=== PATIENT | female | born 1950 | race Caucasian/White ===

== ENCOUNTER → 2018-01-15 | Outpatient (CLI) | payer MEDICARE, OTHER ==
[~2018-01-15] MED LIST: ALLOPURINOL 30300 M1 PO; ALLOPURINOL 30300 M3 PO; ALOE VERA PO; ALPHA LIPOIC ACID PO; AMMONIUM LACTATE; AMOXICILLIN 50500 M1 PO; ASPIRIN EC81 M1 PO; B-12 SUBLING; BUMETANIDE2 M1 PO; BUMEX2 MG PO; CALCIUM; CAYENNE450 MG PO; CEFTIN500 MG PO; CIPRO500 M1 PO; COLACE100 MG PO; FLAXSEED; FLONASE 0.05%50 MCG INH; GLUCOPHAGE XR500 MG PO; GLUCOPHAGE500 MG PO; GLUCOTROL10 MG PO; HUMALOG100 UNIT/1 SQ; HYDROCORTISONE 2.5% TOP; HYZAAR 50-12.51 EACH PO; IODOQUINOL TOP; IP-6 INOSITOL PO; JANUVIA25 MG PO; K-DUR10 MEQ PO; KETOCONAZOLE TOPICAL; KLOR-CON; LANTUS SC; LANTUS SUBQ; LEVEMIR100 UNIT/1 SUBQ; LEVOTHYROXIN0.112 M1 PO; LEVOXYL100 MCG PO; LOSARTAN-HCTZ1 EAC1; LOSARTAN-HCTZ1 EACH PO; LUTEIN10 MG PO; MAGNESIUM; MEDROLDOSEPACK PO; MINOCIN100 MG PO; MULTI-VITAMIN1 EAC5 PO; MULTIVITAMINS1 EAC7 PO; NORCO 5-325 TA1 EACH PO; OLIVE LEAF EXT250 MG PO; OMEGA 3; OMEGA-31000 M1 PO; PHENERGAN 25 MG25 MG PO; STOOL SOFTENER; SYNTHROID; TRIAMCINOLON 0.1% TOP; VANCOMYCIN1.25 GM/15 IVPB; VISTARIL 25 MG25 M1 PO; VITAMIN D32000 UNIT PO; VITAMINC500 PO; ZINC; [UNRECOGNIZED DRUG - OTHER]; [UNRECOGNIZED DRUG - OTHER] MC; [UNRECOGNIZED DRUG - OTHER] PO; levothyroxin PO
== END ==
LOC: M.RAD 12-17 11:00
DX: R92.1 Mammographic calcification found on diagnostic imaging of breast (principal); R92.8 Other abnormal and inconclusive findings on diagnostic imaging of breast; E11.621 Type 2 diabetes mellitus with foot ulcer

== ENCOUNTER → 2018-01-20 | Outpatient (CLI) | payer MEDICARE, OTHER ==
--- NOTE | 2018-02-01 21:22 | ONC ---
[address] [address] RADIATION ONCOLOGY NOTE Name: DIGNA ASHTON Room: [facility]#: [id number] Admission: 01/20/18 Attend Phys: Carlitos Ortega MD Discharge: Date of : 46 Report #: [id number] THIS REPORT FOR: //name// CC: Carlitos Miranda [facility] Vito Monroe MD DATE OF SERVICE: 01/20/2018 REFERRING PHYSICIANS: Include Miki Salmon DO; Keturah Rivero MD; Dr. Mckenzie; Vito Monroe MD from Dermatology. She has actually new primary care at the [facility], it is Manan Miranda MD. The patient was seen again on 01/20/2018. [facility] phone is [phone]. 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 She declined to receive adjuvant therapy. She underwent a lumpectomy on 07/12/2015. INTERVAL NOTE: She denied having any nipple discharge from the right breast. She denied having any nipple discharge from the left breast. She denied having any suspicious palpable masses involving the right breast. She denied having any suspicious palpable masses involving the left breast. She said that her around 11/2017. SOCIAL HISTORY: The patient is retired. She has 2 daughters. Cigarettes: she smoked 1 pack per day for about 30 years. She quit smoking around the year 1999. REVIEW OF SYSTEMS: RESPIRATORY: Breathing was stable. She was not short of breath during her appointment. MUSCULOSKELETAL: She had good range of motion in her upper extremities. MEDICATIONS: Include Humalog, metformin, Levemir solution, 112 mcg of levothyroxine per day, losartan, bumetanide, allopurinol, potassium, aspirin, triamcinolone, fluocinonide and iodoquinol. PHYSICAL EXAMINATION: With my nurse, Digna Nieves, present: VITAL SIGNS: The patient weighed 328.6 pounds on 01/20/2018 and 341.2 on 06/17/2017. On 01/20/2018, blood pressure was 154/60, pulse was 106, respirations were 24, [place] [address] RADIATION ONCOLOGY NOTE Name: DIGNA ASHTON Room: [facility]#: [id number] Admission: 01/20/18 Attend Phys: Carlitos Ortega MD Discharge: Date of : 46 Report #: [id number] oxygen saturation 96%. LYMPH NODES: She had no palpable cervical, supraclavicular, or axillary lymphadenopathy. HEART: Had a regular rate and rhythm without murmur. LUNGS: were clear to auscultation. BREASTS: Left breast had no suspicious palpable masses. Right breast, had no suspicious palpable masses. ABDOMEN: Not tender. Liver was at the costal margin. EXTREMITIES: Had no clubbing, cyanosis or edema. RADIOLOGIC DATA: She had a right mammogram on 01/15/2018, which revealed benign findings and she is due for a bilateral mammogram around 05/2018 or 06/2018. She had a right breast biopsy on 06/18/2017, which revealed benign breast tissue. ASSESSMENT AND PLAN: 1. History of ductal carcinoma in situ of the left breast- there is no evidence of breast cancer at this time. The patient was given a requisition for a bilateral mammogram in 05/2018. She was asked to schedule a follow up appointment to see me afterwards. 2. Diabetes- The patient takes metformin and that is managed by her referring physicians. 3. Hypothyroidism- The patient takes 112 mcg of levothyroxine per day and that is managed by her referring physicians. Thank you for allowing me to participate in the care of this patient. <ELECTRONICALLY SIGNED> By: Carlitos Ortega MD 02/01/182121 [id number] 26Carlitos Ortega MD /nt
== END ==
LOC: M.RTH 12-25 11:00
DX: E11.9 Type 2 diabetes mellitus without complications (principal); E03.9 Hypothyroidism, unspecified

== ENCOUNTER → 2018-07-10 | Outpatient (CLI) | payer MEDICARE, OTHER | LOC: M.RAD 13:00 | DX: R92.8 Other abnormal and inconclusive findings on diagnostic imaging of breast (principal) ==

== ENCOUNTER 2018-08-27 13:21 | Inpatient (IN) | payer MEDICARE, OTHER ==
[~2018-08-27] VITALS: Ht 167.6 cm; Wt 155.6 kg
--- NOTE | ~2018-08-27 | OP ---
[address] [address] OPERATIVE REPORT Name: POLIJENNI Chase Room: [address] IN .R.#: [id number] Admission: 08/27/18 Attend Phys: Esther Barajas MD Discharge: Date of : 46 Report #: [id number] THIS REPORT FOR: //name// CC: Carlitos Barajas DATE OF SERVICE: 08/28/2018 SURGEON: Carlitos Fagan DPM. PREOPERATIVE DIAGNOSIS: Ulceration with soft tissue infection to right posterior heel. POSTOPERATIVE DIAGNOSIS: Ulceration with soft tissue infection to right posterior heel. PROCEDURE: Excision of tissue from right posterior heel, over an area greater than 25 square centimeters. ANESTHESIA: MAC. INJECTABLES: A 30 mL of a 1:1 mixture of 0.5% Marcaine plain and 1% lidocaine. HEMOSTASIS: No tourniquet. ESTIMATED BLOOD LOSS: Roughly 5 mL. SPECIMENS: None. CULTURES: Soft tissue, right heel, aerobic and anaerobic. DESCRIPTION OF PROCEDURE: The patient was brought to the OR and placed on the table supine with induction of MAC anesthesia. A local anesthetic block was given proximal to the wound. The extremity was prepped and draped aseptically. A #10 scalpel was used to excise subcutaneous tissue from the wound bed to remove all grossly necrotic and infected soft tissue. This was sent for aerobic and anaerobic soft tissue culture. After thorough debridement, there was pinpoint bleeding of the underlying subcutaneous tissue layer, with no exposed bone or tendon. The wound was flushed with sterile saline and bacitracin and [facility] [address] [place] [address] OPERATIVE REPORT Name: JENNI ASHTON Chase Room: [address] IN [facility]#: [id number] Admission: 08/27/18 Attend Phys: Estehr Barajas MD Discharge: Date of : 48 Report #: [id number] dried. It was then dressed with Aquacel Ag, fluffs, ABD, Kerlix and Jesus wrap. The patient left the OR alert and oriented. with no pain or complications noted. By: [id number] Fagan DPM /kortney
[~2018-08-27 13:21] MED LIST changes: -LEVOTHYROXIN0.112 M1 PO; +SYNTHROID125 MC1 PO
[2018-08-27 14:40] VITALS: BP 157/89
[2018-08-27 17:03] LABS: ABSOLUTE EOSINOPHILS 0.2 thou/uL (0.0-0.7); ABSOLUTE LYMPHOCYTES 2.3 thou/uL (0.8-5.3); ABSOLUTE MONOCYTES 0.4 thou/uL (0.0-1.2); ABSOLUTE NEUTROPHILS 5.9 thou/uL (1.6-8.1); BASOPHILS 0.5 %; HEMATOCRIT 33.2 % (37.0-47.0); HEMOGLOBIN 10.8 gm/dL (12.0-15.0); LYMPHOCYTES 25.9 %; MCH 31.7 pg (26.0-34.0); MCHC 32.6 g/dL (28.0-37.0); MCV 97.1 fL (80.0-100.0); MONOCYTES 4.7 %; MPV 7.7 fl. (7.2-11.1); NUCLEATED RBCS 0 /100WBC; PLATELET COUNT* 251 thou/uL (150-400); POLYS 66.9 %; RBC 3.42 mil/uL (4.20-5.00); RDW-CV 16.1 % (10.5-14.5); WBC 8.9 thou/uL (4.0-11.0)
[2018-08-27 17:11] LABS: PROTIME 9.8 Seconds (9.20-11.50)
[2018-08-27] MEDS ORDERED: HUMULIN R100 UNIT/M SUBQ (17:12)
[2018-08-27 17:21] LABS: ALBUMIN 3.2 g/dL (3.4-5.0); CALCIUM 9.6 mg/dL (8.5-10.1); MAGNESIUM 1.9 mg/dL (1.8-2.4); POTASSIUM 3.9 mmol/L (3.5-5.1); TOTAL BILIRUBIN 0.3 mg/dL (<0.1-1.0); TOTAL PROTEIN 7.7 g/dL (6.4-8.2)
[2018-08-27 20:00] VITALS: BP 130/57
[2018-08-28 03:47] LABS: ABSOLUTE EOSINOPHILS 0.1 thou/uL (0.0-0.7); ABSOLUTE LYMPHOCYTES 1.9 thou/uL (0.8-5.3); ABSOLUTE MONOCYTES 0.4 thou/uL (0.0-1.2); BASOPHILS 0.6 %; EOSINOPHILS 1.6 %; HEMATOCRIT 31.8 % (37.0-47.0); HEMOGLOBIN 10.4 gm/dL (12.0-15.0); LYMPHOCYTES 25.1 %; MCH 31.6 pg (26.0-34.0); MCHC 32.7 g/dL (28.0-37.0); MCV 96.8 fL (80.0-100.0); MONOCYTES 5.3 %; NUCLEATED RBCS 0 /100WBC; PLATELET COUNT* 242 thou/uL (150-400); POLYS 67.4 %; RBC 3.29 mil/uL (4.20-5.00); RDW-CV 16.2 % (10.5-14.5); WBC 7.4 thou/uL (4.0-11.0)
[2018-08-28 04:08] LABS: ANION GAP 11 mmol/L (7-16); BUN 26 mg/dL (7-18); CALCIUM 9.2 mg/dL (8.5-10.1); CHLORIDE 100 mmol/L (98-107); CHOLESTEROL 180 mg/dL (<200); CO2 26 mmol/L (21-32); CREATININE 1.1 mg/dL (0.6-1.3); GLUCOSE 221 mg/dL (70-99); HDL CHOLESTEROL 40 mg/dL (>40); LDL CHOLESTEROL 92 mg/dL (<100); MAGNESIUM 1.9 mg/dL (1.8-2.4); POTASSIUM 4.5 mmol/L (3.5-5.1); SODIUM 137 mmol/L (136-145); TC:HDL 4.5 Ratio (Not establshd); TRIGLYCERIDE 244 mg/dL (<150); VLDL 49 mg/dL (<40)
[2018-08-28 04:09] LABS: SERUM ASSESSMENT CLEAR
[2018-08-28 10:34] VITALS: BP 135/53
--- NOTE | 2018-08-28 12:01 | CON ---
[address] [address] CONSULTATION Name: POLIJENNI Chase Room: [address] IN M.R.#: [id number] Admission: 08/27/18 Attend Phys: Esther Barajas MD Discharge: Date of : 46 Report #: [id number] THIS REPORT FOR: //name// CC: Carlitos Barajas DATE OF SERVICE: 08/27/2018 ATTENDING PHYSICIAN: Dr. Barajas. REASON FOR CONSULTATION: Here for right plantar calcaneal necrotic type wound in the setting of diabetes mellitus type 2. HISTORY OF PRESENT ILLNESS: Chart reviewed, the patient examined. A 68-year-old, known to myself, having seen her in the hospital a couple of years ago, has longstanding diabetes mellitus diagnosed in the mid , currently is on insulin therapy. She notes her sugars have been fairly well controlled. Has had issues with distal lower extremities, previous foot infections, developed a pinpoint lesion over the medial plantar aspect of her right heel. This progressed over the course of a few days, became quite necrotic, malodorous, has some discomfort, although it is in the setting of peripheral neuropathy. She was not systemically ill. Denies any fevers or chills. Appetite has been good. No pulmonary or gastrointestinal related complaints. She was seen by Dr. Fagan who recommended admission and scheduled to undergo MRI studies. The intent I think is to undergo a debridement procedure. She is not encephalopathic. ALLERGIES: SULFA, STATINS, IODINE. CURRENT MEDICATIONS: Include fish oil, allopurinol, potassium chloride, bumetanide, levothyroxine, aspirin, multivitamin, metformin, hydrocodone. PAST MEDICAL HISTORY: As described above, in addition to diabetes mellitus type 2, insulin requiring; hypercholesterolemia, hypothyroidism, sleep apnea, history of gout, has had several orthopedic surgeries, previous cholecystectomy, tubal ligation, bladder repair that required stenting of the ureter due to ureteral stones, abdominal surgeries due to a hernia with strangulation. SOCIAL HISTORY: Former smoker, occasional ethanol, no illicit drug use. FAMILY HISTORY: Noncontributory. REVIEW OF SYSTEMS: A 10-point review of systems other than above [place] [address] CONSULTATION Name: JENNI ASHTON Room: [address]#: [id number] Admission: 08/27/18 Attend Phys: Esther Barajas MD Discharge: Date of : 46 Report #: [id number] PHYSICAL EXAMINATION: GENERAL: She is sitting in a wheelchair. She is alert, cooperative, pleasant, in mild distress. She is not overtly toxic appearing. VITAL SIGNS: Stable. HEENT: Unremarkable. Extraocular muscles intact. Oropharynx without lesion. NECK: Supple. LUNGS: Clear to auscultation. HEART: Regular. I do not appreciate any murmur. ABDOMEN: Obese, soft, nontender. There are no peritoneal signs. EXTREMITIES: She has a compression dressing over her distal right lower extremity. GENITOURINARY: Deferred. RECTAL: Deferred. LABORATORY DATA: Imaging is pending. ASSESSMENT: Necrotic ulcer involving her right heel. We will continue evaluation with addition of arterial Doppler of her right lower extremity. In addition, I will start empiric antimicrobial therapy. In the setting of debridement, we will likely have some deep cultures to work with as well as do blood cultures as well. <ELECTRONICALLY SIGNED> By: Sam Renee MD 08/28/18 1201 1544 [id number] Renee MD /nt
[2018-08-28 16:02] VITALS: BP 114/41
[2018-08-28 16:38] VITALS: BP 114/41
--- NOTE | 2018-08-28 17:50 | EKG ---
[place] [address] ELECTROCARDIOGRAM REPORT Name: POLIJENNI Room: [address] ADM IN .R.#: [id number] Admission: 08/27/18 Attend Phys: Esther Barajas MD Discharge: Date of : 46 Report #: [id number] THIS REPORT FOR: //name// [facility] Test Date: 2018-08-28 Test Time: 11:54:31 Pat Name: JENNI ASHTON Department: Room: [address] Gender: F Conference Planner: : 1950 Requested By: Carlitos Fagan Order Number: [id number] Meghann MD: Raymon Perales Measurements Intervals [place] Rate: 90 P: 9 [place]: 178 QRS: -31 QRSD: 141 T: 44 QT: 409 QTc: 501 Interpretive Statements Sinus rhythm Right bundle branch block Baseline wander in lead(s) II,III,aVF Compared to ECG 04/08/2016 21:46:21 Sinus tachycardia no longer present Left anterior fascicular block no longer present Incomplete right bundle-branch block no longer present Electronically Signed On 08-28-2018 17:50:07 RECEIVING CHECKER by Raymon Perales [email or web address] <ELECTRONICALLY SIGNED> By: Raymon Perales MD, FACC 08/28/18 1750 1154 1154 Raymon Perales MD, FACC /EPI
[2018-08-28 19:08] LABS: GLYCOHEMOGLOBIN (HGB A1C) 6.6 % (4.8-5.6)
[2018-08-29] VITALS (8 sets, daily range): BP systolic 108–127; BP diastolic 46–50
[2018-08-29] MEDS ORDERED: AUGMENTIN 875-1 EACH PO (10:54)
== END 2018-08-29 16:17 | disposition home health service (06) | DRG 623 ==
LOC: M.TBA 13:21 → M.3W 13:49
PROVIDERS: ADMIT Family Medicine
PROC: 0JBQ0ZZ Excision of Right Foot Subcutaneous Tissue and Fascia, Open Approach (ICD-10-PCS; principal; 2018-08-28)
DX: E11.621 Type 2 diabetes mellitus with foot ulcer (principal); Z68.43 Body mass index [BMI] 50.0-59.9, adult; E78.00 Pure hypercholesterolemia, unspecified; E03.9 Hypothyroidism, unspecified; M10.9 Gout, unspecified; E66.01 Morbid (severe) obesity due to excess calories; E11.22 Type 2 diabetes mellitus with diabetic chronic kidney disease; N18.3 Chronic kidney disease, stage 3 (moderate); D50.9 Iron deficiency anemia, unspecified; Z88.2 Allergy status to sulfonamides; Z91.041 Radiographic dye allergy status; Z90.49 Acquired absence of other specified parts of digestive tract; Z87.891 Personal history of nicotine dependence; I12.9 Hypertensive chronic kidney disease with stage 1 through stage 4 chronic kidney disease, or unspecified chronic kidney disease

== ENCOUNTER → 2018-09-10 | Outpatient (CLI) | payer MEDICARE, OTHER ==
[~2018-09-10] MED LIST changes: +AUGMENTIN 875-1 EACH PO; +HUMULIN R100 UNIT/M SUBQ
== END ==
LOC: M.WC 13:00
DX: E11.621 Type 2 diabetes mellitus with foot ulcer (principal); L97.412 Non-pressure chronic ulcer of right heel and midfoot with fat layer exposed; E11.42 Type 2 diabetes mellitus with diabetic polyneuropathy; E78.00 Pure hypercholesterolemia, unspecified; E66.01 Morbid (severe) obesity due to excess calories; E03.9 Hypothyroidism, unspecified; G47.30 Sleep apnea, unspecified; I89.0 Lymphedema, not elsewhere classified; Z85.89 Personal history of malignant neoplasm of other organs and systems; Z68.43 Body mass index [BMI] 50.0-59.9, adult; Z79.4 Long term (current) use of insulin; Z79.82 Long term (current) use of aspirin; Z87.891 Personal history of nicotine dependence

== ENCOUNTER → 2018-09-17 | Outpatient (CLI) | payer MEDICARE, OTHER | LOC: M.WC 04:42 | DX: E11.621 Type 2 diabetes mellitus with foot ulcer (principal); L97.412 Non-pressure chronic ulcer of right heel and midfoot with fat layer exposed; E11.42 Type 2 diabetes mellitus with diabetic polyneuropathy; E78.00 Pure hypercholesterolemia, unspecified; E66.01 Morbid (severe) obesity due to excess calories; E03.9 Hypothyroidism, unspecified; G47.30 Sleep apnea, unspecified; I89.0 Lymphedema, not elsewhere classified; Z85.89 Personal history of malignant neoplasm of other organs and systems; Z68.43 Body mass index [BMI] 50.0-59.9, adult; Z79.4 Long term (current) use of insulin; Z87.891 Personal history of nicotine dependence; Z79.82 Long term (current) use of aspirin ==

== ENCOUNTER → 2018-09-24 | Outpatient (CLI) | payer MEDICARE, OTHER | LOC: M.WC 01:53 | DX: E11.621 Type 2 diabetes mellitus with foot ulcer (principal); L97.412 Non-pressure chronic ulcer of right heel and midfoot with fat layer exposed; I89.0 Lymphedema, not elsewhere classified; E11.42 Type 2 diabetes mellitus with diabetic polyneuropathy; E78.00 Pure hypercholesterolemia, unspecified; E66.01 Morbid (severe) obesity due to excess calories; E03.9 Hypothyroidism, unspecified; G47.30 Sleep apnea, unspecified; Z85.89 Personal history of malignant neoplasm of other organs and systems; Z68.43 Body mass index [BMI] 50.0-59.9, adult; Z87.891 Personal history of nicotine dependence ==

== ENCOUNTER → 2018-10-08 | Outpatient (CLI) | payer MEDICARE, OTHER | LOC: M.WC 10-01 13:00 | DX: E11.621 Type 2 diabetes mellitus with foot ulcer (principal); L97.411 Non-pressure chronic ulcer of right heel and midfoot limited to breakdown of skin; E78.00 Pure hypercholesterolemia, unspecified; I89.0 Lymphedema, not elsewhere classified; E66.01 Morbid (severe) obesity due to excess calories; E03.9 Hypothyroidism, unspecified; G47.30 Sleep apnea, unspecified; Z85.828 Personal history of other malignant neoplasm of skin; Z68.43 Body mass index [BMI] 50.0-59.9, adult; Z87.891 Personal history of nicotine dependence ==

== ENCOUNTER → 2018-12-10 | Outpatient (CLI) | payer MEDICARE, OTHER | LOC: M.WC 13:50 | DX: E11.622 Type 2 diabetes mellitus with other skin ulcer (principal); L97.211 Non-pressure chronic ulcer of right calf limited to breakdown of skin; E11.621 Type 2 diabetes mellitus with foot ulcer; L97.511 Non-pressure chronic ulcer of other part of right foot limited to breakdown of skin; L97.411 Non-pressure chronic ulcer of right heel and midfoot limited to breakdown of skin; I89.0 Lymphedema, not elsewhere classified; E11.42 Type 2 diabetes mellitus with diabetic polyneuropathy; E78.00 Pure hypercholesterolemia, unspecified; E66.01 Morbid (severe) obesity due to excess calories; E03.9 Hypothyroidism, unspecified; G47.30 Sleep apnea, unspecified; Z85.828 Personal history of other malignant neoplasm of skin; Z87.891 Personal history of nicotine dependence; Z85.3 Personal history of malignant neoplasm of breast; Z68.43 Body mass index [BMI] 50.0-59.9, adult; Z90.49 Acquired absence of other specified parts of digestive tract ==

== ENCOUNTER → 2018-12-24 | Outpatient (CLI) | payer MEDICARE, OTHER | LOC: M.WC 04:17 | DX: E11.622 Type 2 diabetes mellitus with other skin ulcer (principal); L97.212 Non-pressure chronic ulcer of right calf with fat layer exposed; L97.821 Non-pressure chronic ulcer of other part of left lower leg limited to breakdown of skin; E11.621 Type 2 diabetes mellitus with foot ulcer; L97.512 Non-pressure chronic ulcer of other part of right foot with fat layer exposed; L97.412 Non-pressure chronic ulcer of right heel and midfoot with fat layer exposed; I87.2 Venous insufficiency (chronic) (peripheral); I89.0 Lymphedema, not elsewhere classified; E11.42 Type 2 diabetes mellitus with diabetic polyneuropathy; E66.01 Morbid (severe) obesity due to excess calories; Z87.891 Personal history of nicotine dependence; E78.00 Pure hypercholesterolemia, unspecified; E03.9 Hypothyroidism, unspecified; G47.30 Sleep apnea, unspecified; Z85.828 Personal history of other malignant neoplasm of skin; Z85.3 Personal history of malignant neoplasm of breast; Z68.43 Body mass index [BMI] 50.0-59.9, adult ==

== ENCOUNTER → 2019-01-14 | Outpatient (CLI) | payer MEDICARE, OTHER | LOC: M.WC 05:09 | DX: E11.622 Type 2 diabetes mellitus with other skin ulcer (principal); L97.211 Non-pressure chronic ulcer of right calf limited to breakdown of skin; E11.621 Type 2 diabetes mellitus with foot ulcer; L97.511 Non-pressure chronic ulcer of other part of right foot limited to breakdown of skin; L97.411 Non-pressure chronic ulcer of right heel and midfoot limited to breakdown of skin; I89.0 Lymphedema, not elsewhere classified; E66.01 Morbid (severe) obesity due to excess calories; E78.00 Pure hypercholesterolemia, unspecified; E03.9 Hypothyroidism, unspecified; G47.30 Sleep apnea, unspecified; Z85.828 Personal history of other malignant neoplasm of skin; Z85.3 Personal history of malignant neoplasm of breast; Z68.43 Body mass index [BMI] 50.0-59.9, adult ==

== ENCOUNTER → 2019-01-21 | Outpatient (CLI) | payer MEDICARE, OTHER | LOC: M.WC 05:07 | DX: E11.622 Type 2 diabetes mellitus with other skin ulcer (principal); L97.212 Non-pressure chronic ulcer of right calf with fat layer exposed; E11.621 Type 2 diabetes mellitus with foot ulcer; L97.511 Non-pressure chronic ulcer of other part of right foot limited to breakdown of skin; L97.412 Non-pressure chronic ulcer of right heel and midfoot with fat layer exposed; E11.42 Type 2 diabetes mellitus with diabetic polyneuropathy; E66.01 Morbid (severe) obesity due to excess calories; E03.9 Hypothyroidism, unspecified; E78.00 Pure hypercholesterolemia, unspecified; I89.0 Lymphedema, not elsewhere classified; G47.30 Sleep apnea, unspecified; Z85.828 Personal history of other malignant neoplasm of skin; Z85.3 Personal history of malignant neoplasm of breast; Z68.43 Body mass index [BMI] 50.0-59.9, adult; Z87.891 Personal history of nicotine dependence ==

== ENCOUNTER → 2019-01-28 | Outpatient (CLI) | payer MEDICARE, OTHER | LOC: M.WC 05:05 | DX: E11.621 Type 2 diabetes mellitus with foot ulcer (principal); L97.511 Non-pressure chronic ulcer of other part of right foot limited to breakdown of skin; L97.411 Non-pressure chronic ulcer of right heel and midfoot limited to breakdown of skin; E11.622 Type 2 diabetes mellitus with other skin ulcer; L97.211 Non-pressure chronic ulcer of right calf limited to breakdown of skin; L89.512 Pressure ulcer of right ankle, stage 2; L97.311 Non-pressure chronic ulcer of right ankle limited to breakdown of skin; I89.0 Lymphedema, not elsewhere classified; E11.42 Type 2 diabetes mellitus with diabetic polyneuropathy; E66.01 Morbid (severe) obesity due to excess calories; E78.00 Pure hypercholesterolemia, unspecified; E03.9 Hypothyroidism, unspecified; G47.30 Sleep apnea, unspecified; Z85.828 Personal history of other malignant neoplasm of skin; Z87.891 Personal history of nicotine dependence; Z85.3 Personal history of malignant neoplasm of breast; Z68.43 Body mass index [BMI] 50.0-59.9, adult ==

== ENCOUNTER → 2019-02-04 | Outpatient (CLI) | payer MEDICARE, OTHER | LOC: M.WC 04:34 | DX: E11.622 Type 2 diabetes mellitus with other skin ulcer (principal); L97.212 Non-pressure chronic ulcer of right calf with fat layer exposed; L89.512 Pressure ulcer of right ankle, stage 2; L97.312 Non-pressure chronic ulcer of right ankle with fat layer exposed; E11.621 Type 2 diabetes mellitus with foot ulcer; L89.893 Pressure ulcer of other site, stage 3; L97.512 Non-pressure chronic ulcer of other part of right foot with fat layer exposed; L97.412 Non-pressure chronic ulcer of right heel and midfoot with fat layer exposed; I89.0 Lymphedema, not elsewhere classified; E11.42 Type 2 diabetes mellitus with diabetic polyneuropathy; E78.00 Pure hypercholesterolemia, unspecified; E66.01 Morbid (severe) obesity due to excess calories; E03.9 Hypothyroidism, unspecified; G47.30 Sleep apnea, unspecified; Z85.828 Personal history of other malignant neoplasm of skin; Z87.891 Personal history of nicotine dependence; Z85.3 Personal history of malignant neoplasm of breast; Z68.43 Body mass index [BMI] 50.0-59.9, adult ==

== ENCOUNTER → 2019-02-11 | Outpatient (CLI) | payer MEDICARE, OTHER | LOC: M.WC 05:20 | DX: E11.622 Type 2 diabetes mellitus with other skin ulcer (principal); L97.212 Non-pressure chronic ulcer of right calf with fat layer exposed; L89.512 Pressure ulcer of right ankle, stage 2; E11.621 Type 2 diabetes mellitus with foot ulcer; L97.511 Non-pressure chronic ulcer of other part of right foot limited to breakdown of skin; L97.412 Non-pressure chronic ulcer of right heel and midfoot with fat layer exposed; L97.312 Non-pressure chronic ulcer of right ankle with fat layer exposed; L89.893 Pressure ulcer of other site, stage 3; E11.42 Type 2 diabetes mellitus with diabetic polyneuropathy; E66.01 Morbid (severe) obesity due to excess calories; E78.00 Pure hypercholesterolemia, unspecified; E03.9 Hypothyroidism, unspecified; G47.30 Sleep apnea, unspecified; I89.0 Lymphedema, not elsewhere classified; Z85.828 Personal history of other malignant neoplasm of skin; Z85.3 Personal history of malignant neoplasm of breast; Z68.43 Body mass index [BMI] 50.0-59.9, adult; Z87.891 Personal history of nicotine dependence ==

== ENCOUNTER → 2019-02-18 | Outpatient (CLI) | payer MEDICARE, OTHER | LOC: M.WC 08:03 | DX: E11.621 Type 2 diabetes mellitus with foot ulcer (principal); L97.411 Non-pressure chronic ulcer of right heel and midfoot limited to breakdown of skin; L97.511 Non-pressure chronic ulcer of other part of right foot limited to breakdown of skin; E11.622 Type 2 diabetes mellitus with other skin ulcer; L97.211 Non-pressure chronic ulcer of right calf limited to breakdown of skin; L89.892 Pressure ulcer of other site, stage 2; I89.0 Lymphedema, not elsewhere classified; E78.00 Pure hypercholesterolemia, unspecified; E66.01 Morbid (severe) obesity due to excess calories; E03.9 Hypothyroidism, unspecified; G47.30 Sleep apnea, unspecified; Z85.828 Personal history of other malignant neoplasm of skin; Z87.891 Personal history of nicotine dependence ==

== ENCOUNTER → 2019-02-25 | Outpatient (CLI) | payer MEDICARE, OTHER | LOC: M.WC 04:52 | DX: E11.622 Type 2 diabetes mellitus with other skin ulcer (principal); L97.211 Non-pressure chronic ulcer of right calf limited to breakdown of skin; L89.893 Pressure ulcer of other site, stage 3; L97.311 Non-pressure chronic ulcer of right ankle limited to breakdown of skin; E11.621 Type 2 diabetes mellitus with foot ulcer; L97.511 Non-pressure chronic ulcer of other part of right foot limited to breakdown of skin; L97.412 Non-pressure chronic ulcer of right heel and midfoot with fat layer exposed; I89.0 Lymphedema, not elsewhere classified; E11.42 Type 2 diabetes mellitus with diabetic polyneuropathy; E78.00 Pure hypercholesterolemia, unspecified; E66.01 Morbid (severe) obesity due to excess calories; E03.9 Hypothyroidism, unspecified; G47.30 Sleep apnea, unspecified; Z85.828 Personal history of other malignant neoplasm of skin; Z85.3 Personal history of malignant neoplasm of breast; Z68.43 Body mass index [BMI] 50.0-59.9, adult; Z87.891 Personal history of nicotine dependence ==

== ENCOUNTER → 2019-03-04 | Outpatient (CLI) | payer MEDICARE, OTHER | LOC: M.WC 05:08 | DX: E11.622 Type 2 diabetes mellitus with other skin ulcer (principal); L97.211 Non-pressure chronic ulcer of right calf limited to breakdown of skin; L97.311 Non-pressure chronic ulcer of right ankle limited to breakdown of skin; E11.621 Type 2 diabetes mellitus with foot ulcer; L97.511 Non-pressure chronic ulcer of other part of right foot limited to breakdown of skin; L97.411 Non-pressure chronic ulcer of right heel and midfoot limited to breakdown of skin; L89.893 Pressure ulcer of other site, stage 3; I89.0 Lymphedema, not elsewhere classified; E78.00 Pure hypercholesterolemia, unspecified; E66.01 Morbid (severe) obesity due to excess calories; E03.9 Hypothyroidism, unspecified; G47.30 Sleep apnea, unspecified; Z87.891 Personal history of nicotine dependence; Z85.828 Personal history of other malignant neoplasm of skin; Z85.3 Personal history of malignant neoplasm of breast; Z68.43 Body mass index [BMI] 50.0-59.9, adult ==

== ENCOUNTER → 2019-03-11 | Outpatient (CLI) | payer MEDICARE, OTHER | LOC: M.WC 05:10 | DX: E11.622 Type 2 diabetes mellitus with other skin ulcer (principal); L97.212 Non-pressure chronic ulcer of right calf with fat layer exposed; E11.621 Type 2 diabetes mellitus with foot ulcer; L97.511 Non-pressure chronic ulcer of other part of right foot limited to breakdown of skin; L97.412 Non-pressure chronic ulcer of right heel and midfoot with fat layer exposed; L89.893 Pressure ulcer of other site, stage 3; L84 Corns and callosities; E11.42 Type 2 diabetes mellitus with diabetic polyneuropathy; E66.01 Morbid (severe) obesity due to excess calories; E03.9 Hypothyroidism, unspecified; E78.00 Pure hypercholesterolemia, unspecified; I89.0 Lymphedema, not elsewhere classified; G47.30 Sleep apnea, unspecified; Z68.43 Body mass index [BMI] 50.0-59.9, adult; Z85.828 Personal history of other malignant neoplasm of skin; Z85.3 Personal history of malignant neoplasm of breast; Z87.891 Personal history of nicotine dependence ==

== ENCOUNTER → 2019-03-18 | Outpatient (CLI) | payer MEDICARE, OTHER | LOC: M.WC 00:46 | DX: E11.622 Type 2 diabetes mellitus with other skin ulcer (principal); L97.212 Non-pressure chronic ulcer of right calf with fat layer exposed; L97.312 Non-pressure chronic ulcer of right ankle with fat layer exposed; E11.621 Type 2 diabetes mellitus with foot ulcer; L97.511 Non-pressure chronic ulcer of other part of right foot limited to breakdown of skin; L97.412 Non-pressure chronic ulcer of right heel and midfoot with fat layer exposed; E11.42 Type 2 diabetes mellitus with diabetic polyneuropathy; E66.01 Morbid (severe) obesity due to excess calories; E78.00 Pure hypercholesterolemia, unspecified; E03.9 Hypothyroidism, unspecified; I89.0 Lymphedema, not elsewhere classified; G47.30 Sleep apnea, unspecified; Z87.891 Personal history of nicotine dependence; Z85.828 Personal history of other malignant neoplasm of skin; Z85.3 Personal history of malignant neoplasm of breast; Z68.43 Body mass index [BMI] 50.0-59.9, adult ==

== ENCOUNTER → 2019-03-25 | Outpatient (CLI) | payer MEDICARE, OTHER | LOC: M.WC 05:19 | DX: E11.622 Type 2 diabetes mellitus with other skin ulcer (principal); L97.212 Non-pressure chronic ulcer of right calf with fat layer exposed; L97.312 Non-pressure chronic ulcer of right ankle with fat layer exposed; E11.621 Type 2 diabetes mellitus with foot ulcer; L97.511 Non-pressure chronic ulcer of other part of right foot limited to breakdown of skin; L97.412 Non-pressure chronic ulcer of right heel and midfoot with fat layer exposed; E11.42 Type 2 diabetes mellitus with diabetic polyneuropathy; E66.01 Morbid (severe) obesity due to excess calories; E78.00 Pure hypercholesterolemia, unspecified; E03.9 Hypothyroidism, unspecified; G47.30 Sleep apnea, unspecified; I89.0 Lymphedema, not elsewhere classified; Z85.828 Personal history of other malignant neoplasm of skin; Z85.3 Personal history of malignant neoplasm of breast; Z68.43 Body mass index [BMI] 50.0-59.9, adult; Z87.891 Personal history of nicotine dependence ==

== ENCOUNTER → 2019-04-01 | Outpatient (CLI) | payer MEDICARE, OTHER | LOC: M.WC 04:58 | DX: E11.622 Type 2 diabetes mellitus with other skin ulcer (principal); L97.212 Non-pressure chronic ulcer of right calf with fat layer exposed; E11.621 Type 2 diabetes mellitus with foot ulcer; L97.511 Non-pressure chronic ulcer of other part of right foot limited to breakdown of skin; L97.412 Non-pressure chronic ulcer of right heel and midfoot with fat layer exposed; L97.312 Non-pressure chronic ulcer of right ankle with fat layer exposed; I89.0 Lymphedema, not elsewhere classified; L03.115 Cellulitis of right lower limb; E11.42 Type 2 diabetes mellitus with diabetic polyneuropathy; E66.01 Morbid (severe) obesity due to excess calories; Z68.43 Body mass index [BMI] 50.0-59.9, adult ==

== ENCOUNTER → 2019-04-08 | Outpatient (CLI) | payer MEDICARE, OTHER | LOC: M.WC 03:32 | DX: E11.622 Type 2 diabetes mellitus with other skin ulcer (principal); L97.212 Non-pressure chronic ulcer of right calf with fat layer exposed; L97.312 Non-pressure chronic ulcer of right ankle with fat layer exposed; E11.621 Type 2 diabetes mellitus with foot ulcer; L97.512 Non-pressure chronic ulcer of other part of right foot with fat layer exposed; L97.412 Non-pressure chronic ulcer of right heel and midfoot with fat layer exposed; I89.0 Lymphedema, not elsewhere classified; E11.42 Type 2 diabetes mellitus with diabetic polyneuropathy; E78.00 Pure hypercholesterolemia, unspecified; E66.01 Morbid (severe) obesity due to excess calories; E03.9 Hypothyroidism, unspecified; G47.30 Sleep apnea, unspecified; Z68.43 Body mass index [BMI] 50.0-59.9, adult; Z85.828 Personal history of other malignant neoplasm of skin; Z85.3 Personal history of malignant neoplasm of breast; Z87.891 Personal history of nicotine dependence ==

== ENCOUNTER → 2019-04-22 | Outpatient (CLI) | payer MEDICARE, OTHER | LOC: M.WC 05:26 | DX: E11.621 Type 2 diabetes mellitus with foot ulcer (principal); L97.512 Non-pressure chronic ulcer of other part of right foot with fat layer exposed; L97.412 Non-pressure chronic ulcer of right heel and midfoot with fat layer exposed; E11.622 Type 2 diabetes mellitus with other skin ulcer; L97.211 Non-pressure chronic ulcer of right calf limited to breakdown of skin; E11.40 Type 2 diabetes mellitus with diabetic neuropathy, unspecified; I89.0 Lymphedema, not elsewhere classified; E66.09 Other obesity due to excess calories; E03.9 Hypothyroidism, unspecified; G47.30 Sleep apnea, unspecified; Z68.43 Body mass index [BMI] 50.0-59.9, adult; Z85.828 Personal history of other malignant neoplasm of skin; Z87.891 Personal history of nicotine dependence ==

== ENCOUNTER → 2019-05-06 | Outpatient (CLI) | payer MEDICARE, OTHER | LOC: M.WC 05:09 | DX: E11.622 Type 2 diabetes mellitus with other skin ulcer (principal); L97.212 Non-pressure chronic ulcer of right calf with fat layer exposed; L97.312 Non-pressure chronic ulcer of right ankle with fat layer exposed; E11.621 Type 2 diabetes mellitus with foot ulcer; L97.512 Non-pressure chronic ulcer of other part of right foot with fat layer exposed; L97.412 Non-pressure chronic ulcer of right heel and midfoot with fat layer exposed; E11.42 Type 2 diabetes mellitus with diabetic polyneuropathy; E78.00 Pure hypercholesterolemia, unspecified; E66.01 Morbid (severe) obesity due to excess calories; E03.9 Hypothyroidism, unspecified; I89.0 Lymphedema, not elsewhere classified; I87.2 Venous insufficiency (chronic) (peripheral); G47.30 Sleep apnea, unspecified; Z85.828 Personal history of other malignant neoplasm of skin; Z85.3 Personal history of malignant neoplasm of breast; Z87.891 Personal history of nicotine dependence; Z68.43 Body mass index [BMI] 50.0-59.9, adult ==

== ENCOUNTER → 2019-05-13 | Outpatient (CLI) | payer MEDICARE, OTHER | LOC: M.WC 04:47 | DX: E11.622 Type 2 diabetes mellitus with other skin ulcer (principal); L97.212 Non-pressure chronic ulcer of right calf with fat layer exposed; E11.621 Type 2 diabetes mellitus with foot ulcer; L97.512 Non-pressure chronic ulcer of other part of right foot with fat layer exposed; L97.412 Non-pressure chronic ulcer of right heel and midfoot with fat layer exposed; E11.42 Type 2 diabetes mellitus with diabetic polyneuropathy; E78.00 Pure hypercholesterolemia, unspecified; E66.01 Morbid (severe) obesity due to excess calories; E03.9 Hypothyroidism, unspecified; I89.0 Lymphedema, not elsewhere classified; G47.30 Sleep apnea, unspecified; Z87.891 Personal history of nicotine dependence; Z85.828 Personal history of other malignant neoplasm of skin; Z85.3 Personal history of malignant neoplasm of breast; Z68.43 Body mass index [BMI] 50.0-59.9, adult ==

== ENCOUNTER → 2019-06-03 | Outpatient (CLI) | payer MEDICARE, OTHER | LOC: M.WC 05-20 13:00 | DX: E11.622 Type 2 diabetes mellitus with other skin ulcer (principal); L97.211 Non-pressure chronic ulcer of right calf limited to breakdown of skin; L97.311 Non-pressure chronic ulcer of right ankle limited to breakdown of skin; E11.621 Type 2 diabetes mellitus with foot ulcer; L97.511 Non-pressure chronic ulcer of other part of right foot limited to breakdown of skin; L97.412 Non-pressure chronic ulcer of right heel and midfoot with fat layer exposed; E11.40 Type 2 diabetes mellitus with diabetic neuropathy, unspecified; E78.00 Pure hypercholesterolemia, unspecified; E66.01 Morbid (severe) obesity due to excess calories; E03.9 Hypothyroidism, unspecified; G47.30 Sleep apnea, unspecified; I89.0 Lymphedema, not elsewhere classified; Z85.828 Personal history of other malignant neoplasm of skin; Z85.3 Personal history of malignant neoplasm of breast; Z87.891 Personal history of nicotine dependence; Z68.43 Body mass index [BMI] 50.0-59.9, adult ==

== ENCOUNTER → 2019-06-24 | Outpatient (CLI) | payer MEDICARE, OTHER | LOC: M.WC 04:50 | DX: E11.622 Type 2 diabetes mellitus with other skin ulcer (principal); L97.212 Non-pressure chronic ulcer of right calf with fat layer exposed; E11.621 Type 2 diabetes mellitus with foot ulcer; L97.511 Non-pressure chronic ulcer of other part of right foot limited to breakdown of skin; L97.412 Non-pressure chronic ulcer of right heel and midfoot with fat layer exposed; L97.311 Non-pressure chronic ulcer of right ankle limited to breakdown of skin; L03.115 Cellulitis of right lower limb; E11.42 Type 2 diabetes mellitus with diabetic polyneuropathy; E78.00 Pure hypercholesterolemia, unspecified; E66.01 Morbid (severe) obesity due to excess calories; E03.9 Hypothyroidism, unspecified; G47.30 Sleep apnea, unspecified; I89.0 Lymphedema, not elsewhere classified; Z85.828 Personal history of other malignant neoplasm of skin; Z85.3 Personal history of malignant neoplasm of breast; Z68.43 Body mass index [BMI] 50.0-59.9, adult; Z87.891 Personal history of nicotine dependence ==

== ENCOUNTER → 2019-07-29 | Outpatient (CLI) | payer MEDICARE, OTHER | LOC: M.WC 05:31 | DX: E11.622 Type 2 diabetes mellitus with other skin ulcer (principal); L97.212 Non-pressure chronic ulcer of right calf with fat layer exposed; L97.311 Non-pressure chronic ulcer of right ankle limited to breakdown of skin; E11.621 Type 2 diabetes mellitus with foot ulcer; L97.512 Non-pressure chronic ulcer of other part of right foot with fat layer exposed; L97.412 Non-pressure chronic ulcer of right heel and midfoot with fat layer exposed; L03.115 Cellulitis of right lower limb; I89.0 Lymphedema, not elsewhere classified; E11.42 Type 2 diabetes mellitus with diabetic polyneuropathy; E11.51 Type 2 diabetes mellitus with diabetic peripheral angiopathy without gangrene; E66.01 Morbid (severe) obesity due to excess calories; E78.00 Pure hypercholesterolemia, unspecified; E03.9 Hypothyroidism, unspecified; G47.30 Sleep apnea, unspecified; Z87.891 Personal history of nicotine dependence; Z85.828 Personal history of other malignant neoplasm of skin; Z85.3 Personal history of malignant neoplasm of breast; Z68.43 Body mass index [BMI] 50.0-59.9, adult ==

== ENCOUNTER → 2019-08-05 | Outpatient (CLI) | payer MEDICARE, OTHER | LOC: M.WC 03:19 | DX: E11.622 Type 2 diabetes mellitus with other skin ulcer (principal); L97.212 Non-pressure chronic ulcer of right calf with fat layer exposed; L97.311 Non-pressure chronic ulcer of right ankle limited to breakdown of skin; E11.621 Type 2 diabetes mellitus with foot ulcer; L97.511 Non-pressure chronic ulcer of other part of right foot limited to breakdown of skin; L97.412 Non-pressure chronic ulcer of right heel and midfoot with fat layer exposed; L03.115 Cellulitis of right lower limb; E11.40 Type 2 diabetes mellitus with diabetic neuropathy, unspecified; E78.00 Pure hypercholesterolemia, unspecified; E66.01 Morbid (severe) obesity due to excess calories; E03.9 Hypothyroidism, unspecified; G47.30 Sleep apnea, unspecified; Z85.828 Personal history of other malignant neoplasm of skin; Z85.3 Personal history of malignant neoplasm of breast; Z68.43 Body mass index [BMI] 50.0-59.9, adult; Z87.891 Personal history of nicotine dependence; I89.0 Lymphedema, not elsewhere classified ==

== ENCOUNTER → 2019-08-19 | Outpatient (CLI) | payer MEDICARE, OTHER | LOC: M.WC 04:57 | DX: E11.622 Type 2 diabetes mellitus with other skin ulcer (principal); L97.212 Non-pressure chronic ulcer of right calf with fat layer exposed; L97.311 Non-pressure chronic ulcer of right ankle limited to breakdown of skin; E11.621 Type 2 diabetes mellitus with foot ulcer; L97.511 Non-pressure chronic ulcer of other part of right foot limited to breakdown of skin; L97.412 Non-pressure chronic ulcer of right heel and midfoot with fat layer exposed; L03.115 Cellulitis of right lower limb; B95.61 Methicillin susceptible Staphylococcus aureus infection as the cause of diseases classified elsewhere; I89.0 Lymphedema, not elsewhere classified; I87.2 Venous insufficiency (chronic) (peripheral); E11.40 Type 2 diabetes mellitus with diabetic neuropathy, unspecified; E78.00 Pure hypercholesterolemia, unspecified; E66.01 Morbid (severe) obesity due to excess calories; E03.9 Hypothyroidism, unspecified; G47.30 Sleep apnea, unspecified; Z85.828 Personal history of other malignant neoplasm of skin; Z85.3 Personal history of malignant neoplasm of breast; Z68.43 Body mass index [BMI] 50.0-59.9, adult; Z87.891 Personal history of nicotine dependence ==

== ENCOUNTER → 2019-09-16 | Outpatient (CLI) | payer MEDICARE, OTHER | LOC: M.WC 05:19 | DX: E11.622 Type 2 diabetes mellitus with other skin ulcer (principal); L97.212 Non-pressure chronic ulcer of right calf with fat layer exposed; E11.621 Type 2 diabetes mellitus with foot ulcer; L97.511 Non-pressure chronic ulcer of other part of right foot limited to breakdown of skin; L97.412 Non-pressure chronic ulcer of right heel and midfoot with fat layer exposed; L97.312 Non-pressure chronic ulcer of right ankle with fat layer exposed; L03.115 Cellulitis of right lower limb; B95.61 Methicillin susceptible Staphylococcus aureus infection as the cause of diseases classified elsewhere; I89.0 Lymphedema, not elsewhere classified; E11.42 Type 2 diabetes mellitus with diabetic polyneuropathy; E78.00 Pure hypercholesterolemia, unspecified; E66.01 Morbid (severe) obesity due to excess calories; E03.9 Hypothyroidism, unspecified; G47.30 Sleep apnea, unspecified; I87.2 Venous insufficiency (chronic) (peripheral); Z68.43 Body mass index [BMI] 50.0-59.9, adult; Z85.828 Personal history of other malignant neoplasm of skin; Z85.3 Personal history of malignant neoplasm of breast; Z87.891 Personal history of nicotine dependence ==

== ENCOUNTER → 2019-10-07 | Outpatient (CLI) | payer MEDICARE, OTHER | LOC: M.WC 12:30 | DX: E11.622 Type 2 diabetes mellitus with other skin ulcer (principal); L97.211 Non-pressure chronic ulcer of right calf limited to breakdown of skin; E11.621 Type 2 diabetes mellitus with foot ulcer; L97.511 Non-pressure chronic ulcer of other part of right foot limited to breakdown of skin; L97.412 Non-pressure chronic ulcer of right heel and midfoot with fat layer exposed; L03.115 Cellulitis of right lower limb; I89.0 Lymphedema, not elsewhere classified; E11.42 Type 2 diabetes mellitus with diabetic polyneuropathy; E78.00 Pure hypercholesterolemia, unspecified; E66.01 Morbid (severe) obesity due to excess calories; E03.9 Hypothyroidism, unspecified; G47.30 Sleep apnea, unspecified; Z85.828 Personal history of other malignant neoplasm of skin; Z85.3 Personal history of malignant neoplasm of breast; Z68.43 Body mass index [BMI] 50.0-59.9, adult; Z87.891 Personal history of nicotine dependence ==

== ENCOUNTER → 2019-11-04 | Outpatient (CLI) | payer MEDICARE, OTHER | LOC: M.WC 10-28 13:00 | DX: E11.622 Type 2 diabetes mellitus with other skin ulcer (principal); L97.212 Non-pressure chronic ulcer of right calf with fat layer exposed; E11.621 Type 2 diabetes mellitus with foot ulcer; L97.511 Non-pressure chronic ulcer of other part of right foot limited to breakdown of skin; L97.412 Non-pressure chronic ulcer of right heel and midfoot with fat layer exposed; L03.115 Cellulitis of right lower limb; E78.00 Pure hypercholesterolemia, unspecified; E11.42 Type 2 diabetes mellitus with diabetic polyneuropathy; E66.01 Morbid (severe) obesity due to excess calories; E03.9 Hypothyroidism, unspecified; G47.30 Sleep apnea, unspecified; I89.0 Lymphedema, not elsewhere classified; Z85.828 Personal history of other malignant neoplasm of skin; Z68.43 Body mass index [BMI] 50.0-59.9, adult; Z85.3 Personal history of malignant neoplasm of breast; Z87.891 Personal history of nicotine dependence ==

== ENCOUNTER → 2019-11-25 | Outpatient (CLI) | payer MEDICARE, OTHER | LOC: M.WC 02:13 | DX: E11.622 Type 2 diabetes mellitus with other skin ulcer (principal); L97.212 Non-pressure chronic ulcer of right calf with fat layer exposed; E11.621 Type 2 diabetes mellitus with foot ulcer; L97.511 Non-pressure chronic ulcer of other part of right foot limited to breakdown of skin; L97.412 Non-pressure chronic ulcer of right heel and midfoot with fat layer exposed; L97.312 Non-pressure chronic ulcer of right ankle with fat layer exposed; L03.115 Cellulitis of right lower limb; I89.0 Lymphedema, not elsewhere classified; E11.42 Type 2 diabetes mellitus with diabetic polyneuropathy; E66.01 Morbid (severe) obesity due to excess calories; E78.00 Pure hypercholesterolemia, unspecified; E03.9 Hypothyroidism, unspecified; G47.30 Sleep apnea, unspecified; Z68.43 Body mass index [BMI] 50.0-59.9, adult; Z85.828 Personal history of other malignant neoplasm of skin; Z85.3 Personal history of malignant neoplasm of breast; Z87.891 Personal history of nicotine dependence ==

== ENCOUNTER 2019-12-13 13:40 | Inpatient (IN) | payer MEDICARE, OTHER ==
[~2019-12-13] VITALS: Ht 167.6 cm; Wt 152.0 kg
[~2019-12-13 13:40] MED LIST changes: +HUMULIN R100 UNIT/1 SUBQ; -HUMULIN R100 UNIT/M SUBQ
[2019-12-13 13:49] VITALS: BP 108/57
[2019-12-13] MEDS ORDERED: CRESTOR10 MG PO (13:58)
[2019-12-13 14:31] LABS: HEMATOCRIT 30.1 % (37.0-47.0); HEMOGLOBIN 9.9 gm/dL (12.0-15.0); MCH 31.1 pg (26.0-34.0); MCV 94.3 fL (80.0-100.0); MPV 8.1 fl. (7.2-11.1); NUCLEATED RBCS 0 /100WBC; PLATELET COUNT* 193 thou/uL (150-400); RDW-CV 17.2 % (10.5-14.5); WBC 15.7 thou/uL (4.0-11.0)
[2019-12-13 14:45] LABS: CALCIUM 8.8 mg/dL (8.5-10.1); CREATININE 1.2 mg/dL (0.6-1.3); POTASSIUM 4.7 mmol/L (3.5-5.1)
[2019-12-13 14:49] LABS: ALBUMIN 2.9 g/dL (3.4-5.0); TOTAL BILIRUBIN 0.9 mg/dL (<0.1-1.0); TOTAL PROTEIN 7.2 g/dL (6.4-8.2)
[2019-12-13 14:54] LABS: ABSOLUTE EOSINOPHILS 0.2 thou/uL (0.0-0.7); ABSOLUTE LYMPHOCYTES 0.8 thou/uL (0.8-5.3); ABSOLUTE MONOCYTES 0.3 thou/uL (0.0-1.2); ABSOLUTE NEUTROPHILS 14.4 thou/uL (1.6-8.1); ANISOCYTOSIS 1+; HYPOCHROMASIA Occasional; PLATELET ESTIMATE ADEQUATE; POLYCHROMASIA Occasional
[2019-12-13 14:55] LABS: POIKILOCYTOSIS Occasional
[2019-12-13 17:29] VITALS: BP 108/57
[2019-12-13 17:50] VITALS: BP 113/53
--- NOTE | 2019-12-13 18:30 | NUR ---
PATIENT ARRIVED FROM ER THIS EVENING AT 1750 PER CART. PATIENT IS DROWSY, WEAK, ORIENTED X 4. SHE C/O NAUSEA. HER TEMP IS ELEVATED AT 102.6. PATIENT PLACED ON TELE MONITOR. TELE SHOWS SINUS TACHY WITH A BBB. PATIENT AND FAMILY ORIENTED TO ROOM AN PROCEDURES. WILL REPORT TO MEDICAL TECHNOLOGIST.
[2019-12-13 21:39] LABS: HEMATOCRIT 29.4 % (37.0-47.0); HEMOGLOBIN 9.8 gm/dL (12.0-15.0); MCH 31.5 pg (26.0-34.0); MCHC 33.2 g/dL (28.0-37.0); MPV 7.6 fl. (7.2-11.1); RBC 3.1 mil/uL (4.20-5.00); WBC 13.7 thou/uL (4.0-11.0)
[2019-12-13 22:13] LABS: BE 1.6 mmol/L (-2 to +3); PCO2 40.1 mmHg (35.0-45.0); PO2 78.5 mmHg (75.0-100.0)
[2019-12-14] VITALS (18 sets, daily range): BP systolic 73–123; BP diastolic 17–50
[2019-12-14 00:18] LABS: URINE BILIRUBIN NEGATIVE (Negative); URINE BLOOD 1+ (Negative); URINE CLARITY CLEAR; URINE COLOR YELLOW; URINE GLUCOSE-RANDOM TRACE (Negative); URINE KETONES 1+ (Negative); URINE LEUKOCYTES-REFLEX TRACE (Negative); URINE PROTEIN TRACE (Negative); URINE SPECIFIC GRAVITY 1.025 (1.005-1.030); URINE UROBILINOGEN 0.2 E.U./dl (0.2-1.0)
[2019-12-14 00:19] LABS: URINE NITRITE-REFLEX POSITIVE (Negative)
--- NOTE | 2019-12-14 00:25 | NUR ---
ASSUMED CARE OF PATIENT AT 1900. UPON ASSESSMENT OF PATIENT AND REVIEW OF CHART, CLINICAL DETERMINATION WAS MADE THAT THE PATIENT NEEDED TO BE TRANSFERRED TO ICU. PATIENT'S MENTAL STATUS STARTED TO DECLINE SINCE ASSUMING CARE, REMAINED FEBRILE AT 100.6, AND BEGAN COUGHING UP BLOODY SPUTUM. SAMPLE SENT TO LAB FOR TESTING. SPOKE WITH DR. BURRELL ABOUT PATIENT'S CONDITION AND SHE AGREED WITH RECOMMENDATION TO SEND PATIENT TO ICU. TRANSFER ORDERS OBTAINED, UPDATE GIVEN TO PATIENT AND FAMILY. REPORT GIVEN TO BRAYAN QUINN RN AT BEDSIDE AND PATIENT WAS TRANSFERRED TO ICU AT 2150.
[2019-12-14 00:42] LABS: SQUAMOUS NONE SEEN /LPF (0-3)
[2019-12-14 00:43] LABS: CRYSTALS None Seen /LPF (None Seen); URINE RBC 3-10 Few /HPF (0-2)
[2019-12-14 00:44] LABS: HYALINE CASTS 0-3 Few /LPF (None Seen)
--- NOTE | 2019-12-14 09:11 | EKG ---
[place] [address] ELECTROCARDIOGRAM REPORT Name: JENNI ASHTON Room: [address] ADM IN .R.#: [id number] Admission: 12/13/19 Attend Phys: Oksana Beck, Discharge: Date of : 46 Date of Service: 12/13/19 1409 Report #: [id number] THIS REPORT FOR: //name// [facility] ED Test Date: 2019-12-13 Test Time: 14:09:36 Pat Name: JENNI ASHTON Department: Room: [facility] Gender: F Supervisor Stitching Department: RENEE : 1950 Requested By: Manan Olivia Order Number: [id number] MD: Jose Alfredo Luong Measurements Intervals [place] Rate: 105 P: 39 DC: 180 QRS: -37 QRSD: 141 T: 61 QT: 366 QTc: 484 Interpretive Statements Sinus tachycardia Right bundle branch block Compared to ECG 08/28/2018 11:54:31 Sinus rhythm no longer present Electronically Signed On 12-14-2019 9:09:59 CDT by Jose Alfredo Luong [email or web address] <ELECTRONICALLY SIGNED> By: Jose Alfredo Luong MD, FACC 12/14/19 0909 1409 1409 Jose Alfredo Luong MD, [facility] /EPI
--- NOTE | 2019-12-14 10:20 | NUR ---
INT [place]OUNDS: MET WITH PT AND DTR/ANNETTE TO DISCUSS HOME SITUATION/DC PLANNING. PT LIVES WITH HER DTR/FLORI "WILIAN'. DTRS WORK. PT STATES SHE IS NORMALLY ABLE TO MANAGE HER OWN ADLS, USES WALKER. ALSO HAS CANE, STAIR LIFT AND IS CURRENT WITH [facility] FOR HOME HEALTH. PT PLANS TO RETURN HOME AT [place]. FOLLOWS WITH DR HARVEY AT [facility]. PT STATES HER RIGHT LEG HAS BEEN 'RED' AND 'PROBLEM' SINCE JUL. WILL FOLLOW
--- NOTE | 2019-12-14 11:34 | NUR ---
PT TRANSFERRED TO ROOM 212 ALL BELONGINGS AND MEDICATION SENT WITH NURSING AID CARISSA TRANSFERRED VIA WHEELCHAIR WITH DAUGHTER AT BEDSIDE
--- NOTE | 2019-12-14 12:45 | NUR ---
Nutrition: Pt admitted cellulitiis. Consult received for OBE. Pt has h/o OBE, DM, ulcers on feet. Heart Healthy diet ordered. Wt: 335#. Albumin 2.9, BG 200s. RD ordered Mele bid for wound healing. Recommend MVI as well. GOALS: tight BG control for wound healing, good po intake. Increased nutrient needs R/T wound healing AEB chart review. Mild nutrition risk.
--- NOTE | 2019-12-14 13:00 | 2DMMODE ---
[place] [address] 2 D/M-MODE ECHOCARDIOGRAM Name: JENNI ASHTON ROYAL Room: [address] IN [place]#: [id number] Admission: 12/13/19 Attend Phys: Oksana Beck, Discharge: Date of : 46 Date of Service: 12/14/19 1259 Report #: [id number] THIS REPORT FOR: cc: FAM - No family physician/PCP FAM - No family physician/PCP Jose Alfredo Luong MD [facility] ~ APPROVED REPORT Study performed: 12/14/2019 09:44:07 EXAM: Comprehensive 2D, Doppler, and color-flow Echocardiogram Patient Location: In-Patient Room #: 005 Status: routine BSA: 2.49 HR: 89 bpm BP: 111/41 mmHg Rhythm: NSR Other Information Study Quality: Good Indications Murmur 2D Dimensions IVSd: 10.35 (7-11mm) LVOT Diam: 18.94 (18-24mm) LVDd: 57.12 mm PWd: 10.10 (7-11mm) Ascending Ao: 29.18 (22-36mm) LVDs: 28.51 (25-40mm) Aortic Root: 32.78 mm Volumes Left Atrial Volume (Systole) LA ESV Index: 32.50 mL/m2 Aortic Valve AoV Peak Renny.: 2.93 m/s AO Peak Gr.: 34.27 mmHg LVOT Max P.32 mmHg AO Mean Gr.: 22.97 mmHg LVOT Mean P.03 mmHg LVOT Max V: 1.15 m/s AO V2 VTI: 52.14 cm LVOT Mean V: 0.82 m/s BRYANNA (VTI): 1.18 cm2 LVOT V1 VTI: 21.91 [place] [address] 2 D/M-MODE ECHOCARDIOGRAM Name: JENNI ASHTON Room: [address] IN [facility].#: [id number] Admission: 12/13/19 Attend Phys: Oksana Beck, Discharge: Date of : 46 Date of Service: 12/14/19 1259 Report #: [id number] Mitral Valve MV Mean Gr.: 6.08 mmHg E/A Ratio: 1.33 MV Decel. Time: 315.34 ms MV E Max Renny.: 1.69 m/s MV PHT: 91.45 ms MVA (PHT): 2.41 cm2 TDI E/Lateral E': 18.78 E/Medial E': 21.13 Medial E' Renny.: 0.08 m/s Lateral E' Renny.: 0.09 m/s Pulmonary Valve PV Peak Renny.: 1.42 m/s PV Peak Gr.: 8.11 mmHg Tricuspid Valve RAP Estimate: 15.00 mmHg TR Peak Gr.: 24.38 mmHg RVSP: 39.00 mmHg PA Pressure: 39.00 mmHg Left Ventricle Left ventricle is at the upper limits of normal. There is normal LV segmental wall motion. There is normal left ventricular wall thickness. Left ventricular systolic function is normal. The left ventricular ejection fraction is within the normal range. LVEF is 60-65%. The left ventricular diastolic function is normal. Right Ventricle The right ventricle is normal size. The right ventricular systolic function is normal. Atria Left atrium is mildly dilated. The right atrium size is normal. Aortic Valve Moderate aortic valve sclerosis. No aortic regurgitation is present. Mild aortic stenosis. Mitral Valve There is mitral annular calcification. There is trace mitral valve regurgitation noted. No evidence of mitral valve stenosis. Tricuspid Valve The tricuspid valve is normal in structure. Trace tricuspid regurgitation. estimated pa pressure 30 [place] [address] 2 D/M-MODE ECHOCARDIOGRAM Name: JENNI ASHTON Room: [address] IN ..#: [id number] Admission: 12/13/19 Attend Phys: Oksana Beck, Discharge: Date of : 46 Date of Service: 12/14/19 1259 Report #: [id number] Pulmonic Valve The pulmonary valve is normal in structure. There is no pulmonic valvular regurgitation. Great Vessels The aortic root is normal in size. IVC is dilated and collapses <50% with inspiration. Pericardium There is no pericardial effusion. <Conclusion> LVEF is 60-65%. Left atrium is mildly dilated. Mild aortic stenosis. <ELECTRONICALLY SIGNED> By: Jose Alfredo Luong MD, FACC 12/14/19 1259 1259 1259 Jose Alfredo Luong MD, FACC /INF
--- NOTE | 2019-12-14 13:44 | CON ---
[address] [address] CONSULTATION Name: JENNI ASHTON Room: [address] IN M.R.#: [id number] Admission: 12/13/19 Attend Phys: Oksana Beck MD Discharge: Date of : 46 Report #: [id number] THIS REPORT FOR: //name// cc: YARIEL Lopez family physician/PCP YARIEL Lopez family physician/PCP ~ THIS REPORT FOR: //name// CC: YARIEL physician/PCP Oksana Beck DATE OF SERVICE: 12/14/2019 INFECTIOUS DISEASE CONSULTATION ATTENDING PHYSICIAN: Dr. Beck REASON FOR EVALUATION: Inflammatory eruption involving the right lower extremity, likely component of skin and soft tissue infection as well as venous stasis insufficiency and dermatitis. HISTORY OF PRESENT ILLNESS: The patient is a 69-year-old woman known to myself, who has extensive medical history including diabetes mellitus type 2, insulin requiring. She has known lower extremity chronic ulcers, had developed a fairly abrupt onset of illness. She states she went to bed and soon became quite ill with shaking chills and rigors, also subsequently fevers, had some nausea and emesis, and noted to have increasing inflammation associated with right lower extremity. She was evaluated in the Emergency Room. She not had a cough, abdominal pain, or shortness of breath. Chest x-ray was otherwise unremarkable. Lactic acid was elevated at 3.3 with a troponin of 0.22 and it peaked at 0.30. Repeat lactic acid was 1.2. Due to concern about a bacterial etiology, she has been started empirically on therapy with vancomycin, doxycycline, and ceftriaxone was added. She is in moderate distress at this point. She is fairly lucid. ALLERGIES: LISTED TO SULFA, STATINS, IODINE, AND VANCOMYCIN. CURRENT MEDICATIONS: Include ceftriaxone, bumetanide, hydrochlorothiazide, aspirin, allopurinol, levothyroxine, metformin, famotidine, enoxaparin, doxycycline, and Zosyn. PAST MEDICAL HISTORY: Includes diabetes mellitus type 2, insulin requiring; hypercholesterolemia; morbid obesity; hypothyroidism; chronic lower extremity venous stasis insufficiency with dermatitis wounds; history of gout; macular degeneration; sleep apnea; hypothyroidism; previous history of renal lithiasis with stenting required; cholecystectomy; [place] [address] CONSULTATION Name: JENNI ASHTON Room: [address] IN [facility].#: [id number] Admission: 12/13/19 Attend Phys: Oksana Beck MD Discharge: Date of : 46 Report #: [id number] SOCIAL HISTORY: Nonsmoker. No ethanol. No illicit drug use. FAMILY HISTORY: Noncontributory. REVIEW OF SYSTEMS: Otherwise, unremarkable 10-point review of systems. PHYSICAL EXAMINATION: GENERAL: Appears somewhat chronically ill and undernourished. She is obese. She is perhaps slightly encephalopathic. VITAL SIGNS: Temperature up to 102.6, more recently at 99.8; pulse 100; respirations 19; and blood pressure 104/50. SKIN: Warm and dry. No rashes. HEENT: Normocephalic. Extraocular muscles intact. NECK: Supple. LUNGS: Otherwise clear breath sounds. HEART: Regular. Borderline tachycardic. I do not appreciate murmur. ABDOMEN: Obese, soft, and nontender. EXTREMITIES: Bilateral lower extremities have changes consistent with dermopathy, likely combination and certainly includes venous stasis component. There are increasing surface inflammation signs noted on the right more erythema. It is swollen. There is not a great deal of palpable pain. GENITOURINARY AND RECTAL: Deferred. LABORATORY DATA: Blood cultures are sterile thus far. Urinalysis; 16-25 white cells. ABGs; pH 7.430, pCO2 of 40.1, and pO2 of 78.5 on 2 liters. CBC: White count of 13.7, H and H of 9.8 and 29.4, and platelets of 181. Chest x-ray showed no acute process. Peak lactic acid 3.3. ASSESSMENT: Febrile illness. The patient has clearly inflammatory eruption involving the right lower extremity and known history of venous stasis insufficiency and dermatitis. I think the most likely scenario would suggest a lower extremity skin and soft tissue infection with cellulitis. We will continue combination of antimicrobial therapy. Certainly, it looks like that maybe there is potentially urinary tract infection as well given the moderate pyuria. We will see how she does clinically over the next 24-48 hours. Supportive care. <ELECTRONICALLY SIGNED> By: Sam Renee MD 12/14/19 1344 1154 [id number] Renee MD /nt
--- NOTE | 2019-12-14 14:03 | CON ---
[address] [address] CONSULTATION Name: JENNI ASHTON Room: [address] IN M.R.#: [id number] Admission: 12/13/19 Attend Phys: Oksana Beck MD Discharge: Date of : 46 Report #: [id number] THIS REPORT FOR: //name// cc: YARIEL Lopez family physician/PCP YARIEL Lopez family physician/PCP ~ THIS REPORT FOR: //name// CC: YARIEL physician/PCP Oksana Beck DATE OF SERVICE: 12/14/2019 CARDIOLOGY CONSULTATION HISTORY OF PRESENT ILLNESS: The patient is a 69-year-old single white female, who I was asked to see in the hospital today after she was noted to have an abnormal troponin. The history was obtained from the patient as well as some old records. The patient was actually admitted here to [facility] in 07/2018 with a diabetic foot ulcer. She was seen by Podiatry and had debridement. She was placed on antibiotics. She is not very active at this time. She currently is 5 feet 6 inches, weighs 330 pounds. She ambulates with a walker. Recently, she has had redness of her lower extremities. She has a nonhealing wound on the right heel. She apparently saw Dr. Varma in the [facility] in August. She apparently had venous duplex scan and lower arterial Doppler study, which showed no evidence of DVT or PAD. Because of the redness, the family finally brought her to the Emergency Room yesterday. She has had swelling of her feet. She has had a fever. She was noted to have an elevated troponin. I was asked to see her for further evaluation and treatment. She denies any history of chest tightness, dyspnea on exertion, palpitations or recent syncope. PAST MEDICAL HISTORY: Otherwise, she has had cholecystectomy, bladder tuck, back surgery, diabetes and hyperlipidemia. No history of hypertension. She has sleep apnea, uses CPAP. She has macular degeneration. CURRENT MEDICATIONS: Include aspirin, insulin, allopurinol, Bumex, metformin, Synthroid, losartan/HCT, Crestor. ALLERGIES: SHE HAS AN ALLERGY TO SULFA DRUGS. She could not tolerate statin drugs in the past. FAMILY HISTORY: Her brother needs valve surgery. SOCIAL HISTORY: She is , lives with daughter in [place]. Quit smoking years ago. No alcohol abuse. REVIEW OF SYSTEMS: She has had no history of stroke, asthma, [place] [address] CONSULTATION Name: JENNI ASHTON Room: [address]#: [id number] Admission: 12/13/19 Attend Phys: Oksana Beck MD Discharge: Date of : 46 Report #: [id number] liver disease. She has had a kidney stone. No cancer. She had breast cancer in the past, treated with surgery. No psychiatric illness. No chronic skin condition. PHYSICAL EXAMINATION: GENERAL: Revealed a large, elderly female lying in bed. She appeared in no distress. VITAL SIGNS: Her blood pressure 120/70, pulse 90. HEENT: She was anicteric. Conjunctivae pink. Mucous membranes appeared dry. NECK: Neck veins difficult to assess due to obesity. CHEST: Clear to auscultation. CARDIAC: Regular rate and rhythm. Grade 3 systolic ejection murmur along the left sternal border. ABDOMEN: Obese. EXTREMITIES: Had pitting edema below the mid tibial area. SKIN: Erythematous. There was an ulcer of the right heel. NEUROLOGIC: Nonfocal. PSYCHIATRIC: Mood is appropriate. ECG shows sinus tachycardia with a right bundle-branch block. Her workup in the Emergency Room yesterday, portable chest x-ray showed normal heart size, clear lung saucedo. Lower extremity Doppler study done in 2018 because of the foot ulcer showed PAD in the distal arteries. LABORATORY WORK: Sodium 137, potassium 4.7, BUN 30, creatinine 1.2, glucose 247, SGOT 59, SGPT is 28, albumin 2.9. Troponin 0.30. Previous cholesterol in 2018 was 180, triglyceride 244, HDL 40, LDL 92. TSH 1.2 in 2018. Her white blood cell count 13.7; hemoglobin 9.8, it was 9.2 in 03/2016; her MCV 95. IMPRESSION AND RECOMMENDATIONS: 1. Non-myocardial infarction-related elevation of troponin. Recommend no further cardiac evaluation. 2. Hypertriglyceridemia. The patient is on Crestor drug. Recommend diet and attempt to exercise. 3. Diabetes. 4. Hypertension. The patient is on diuretic and ARB, I would hold at this time because of low blood pressure. 5. Low blood pressure. Suspect sepsis. 6. Morbid obesity. 7. Sleep apnea. 8. History of breast cancer. 9. Macular degeneration. [address] [address] CONSULTATION Name: JENNI ASHTON Room: M.212-P ADM IN M.R.#: [id number] Admission: 12/13/19 Attend Phys: Oksana Beck MD Discharge: Date of : 46 Report #: [id number] 10. Foot ulcer. 11. Murmur. Suspect aortic stenosis. Recommend Doppler. <ELECTRONICALLY SIGNED> By: Jose Alfredo Luong MD, FACC 12/14/19 1403 0819 [id number] Luong MD, FACC /nt
--- NOTE | 2019-12-14 15:04 | NUR ---
WOUND NURSE: PATIENT SEEN TO ADDRESS DIABETIC ULCERS ON THE RLE & FOOT: RIGHT CALF WOUND MEASURES 2.4 X 1.5 X 0.2 CM AND PRESENTS WITH >75% RED GRANULATION TISSUE AND <25% SLOUGH AND YELLOW DRAINAGE ON OLD DRESSING. RIGHT ACHILLES PRESENTS A SHALLOW WOUND MEASURING 0.7 X 1.0 X 0.2 CM AND CONTAINS RED GRANULATION TISSUE AND CONTAINS SMALL AMOUNT OF SEROUSANGUINOUS DRAINAGE. RIGHT HEEL WOUND MEASURES 3.0 X 2.3 X 0.2 CM CONTAINS >75% RED GRANULATION TISSUE AND <25% SLOUGH AND HAS MODERATE AMOUNT OF SEROUSANGUINOUS DRAINAGE. THE DORSAL FOOT MEASURES 0.3 X 0.3 X 0.1 CM CONTAINS RED NONGRANULATING TSSUUE AND SMALL AMOUNT OF SEROUSANGUINOUS DRAINAGE. CLEANSED ENTIRE LEG & FOOT USING SOAP AND WATER, RINSED WITH WATER, THEN PATTED DRY. APPLIED SKIN PREP TO INTACT PERIWOUND TISSUE. APPLIED LOTION TO INTACT SKIN TOES TO KNEE. APPLIED AQUACEL AG UNDER ABD TO WOUNDS. WRAPPED WITH KERLEX ROLL GAUZE UNDER TODD WRAPS. ELEVATED FOB AND PLACED LOWER LEGS ON PILLOW TO OFFLOAD HEELS. ALSO COLLECTED RIGHT CALF WOUND C&S AEROBIC AND ANEROBIC SWAB. PATIENT INSTRUCTED ON IMPORTANCE OF GOOD NUTRITION, GLUCOSE CONTROL, ANTIBIOTIC THERAPY AND OFFLOADING WOUNDS TO PROMOTE HEALING. REINFORCEMENT OF INSTRUCTION PROVIDED WILL BE NECESSARY.
--- NOTE | 2019-12-14 15:25 | NUR ---
PT TRANSFERRED TO ROOM 212 VIA WHEELCHAIR FROM ICU AT APPROXIMATELY 1130. REPORT RECEIVED FROM SUSAN MARY. THIS RN AGREES WITH PREVIOUS CORN GRINDER. PT ORIENTED TO ROOM AND CALL LIGHT. VISITOR AT BEDSIDE. A&0X4, TRACING ST WITH BBB ON THE DRILL DOCTOR. ON 2L NC SAT UPPER 90'S.-DENIES ANY SHORTNESS OF BREATH. REDNESS NOTED TO RLE-FIRE HAZARD INSPECTORAMPARO, HERE TO SEE PT THIS AFTERNOON. REFER TO CHARTING. DALEY TO DEPENDENT DRAINAGE. MEDICATIONS PER NOV. PT REPOSITIONS SELF WITH REMINDERS. HOURLY ROUNDING OBSERVED. BED IN LOW POSITION. CALL LIGHT WITHIN REACH. WILL CONTINUE PLAN OF CARE.
--- NOTE | 2019-12-14 18:29 | NUR ---
PT COMPLAINED OF PAIN TO HEAD-TREATED WITH PRN TYLENOL WITH PARTIAL RELIEF. PT COMPLAINED OF NAUSEA-TREATED WITH PRN ZOFRAN. PT FEBRILE THIS AFTERNOON-100.2 ORALLY-PRN TYLENOL GIVEN-RE CHECK 99.8. MEDICATIONS PER NOV. PT REPOSITIONS SELF WITH REMINDERS. HOURLY ROUNDING OBSERVED. BED IN LOW POSITION. CALL LIGHT WITHIN REACH. WILL CONTINUE PLAN OF CARE.
[2019-12-15] VITALS (7 sets, daily range): BP systolic 102–142; BP diastolic 50–69
--- NOTE | 2019-12-15 04:35 | NUR ---
ASSUMED CARE OF PT 12/14/19 AT APPROX 1930. PT A&OX3, PT ON 2L NC - CPAP AT NIGHT (O2 INCREASED TO 3L ON CPAP DURING THIS SHIFT). EDI IN PLACE, DRSG TO RT LOWER EXTREMITY C/D/I. ASSESSMENTS AND HOURLY ROUNDINGS COMPLETED. WILL CONTINUE TO MONITOR.
[2019-12-15 07:39] LABS: HEMATOCRIT 27.2 % (37.0-47.0); HEMOGLOBIN 9.1 gm/dL (12.0-15.0); MCH 31.7 pg (26.0-34.0); MCHC 33.4 g/dL (28.0-37.0); MCV 95.1 fL (80.0-100.0); RBC 2.86 mil/uL (4.20-5.00); RDW-CV 17.2 % (10.5-14.5); WBC 9.3 thou/uL (4.0-11.0)
[2019-12-15 07:52] LABS: CALCIUM 8.1 mg/dL (8.5-10.1); CREATININE 1.1 mg/dL (0.6-1.3); MAGNESIUM 1.7 mg/dL (1.8-2.4); POTASSIUM 3.7 mmol/L (3.5-5.1)
--- NOTE | 2019-12-15 15:31 | NUR ---
Pt in agreement with going to [facility], SNF choices are 1) [facility], 2) [facility] 3) [facility] and 4) [facility], [place], operated by [facility]. CM to fax referrals.
--- NOTE | 2019-12-15 16:46 | NUR ---
PT SITTING IN CHAIR MOST OF SHIFT. TOLERATING PO WELL. DENIES PAIN. NSR ON MONITOR. FAMILY UPDATED ON PLAN OF CARE
[2019-12-16 04:00] VITALS: BP 125/56
[2019-12-16 04:12] LABS: HEMOGLOBIN 9.1 gm/dL (12.0-15.0); MCH 31.8 pg (26.0-34.0); MCHC 33.8 g/dL (28.0-37.0); MCV 94.1 fL (80.0-100.0); MPV 7.8 fl. (7.2-11.1); RBC 2.87 mil/uL (4.20-5.00); RDW-CV 16.9 % (10.5-14.5); WBC 6.7 thou/uL (4.0-11.0)
[2019-12-16 04:54] LABS: CALCIUM 8.5 mg/dL (8.5-10.1); MAGNESIUM 1.5 mg/dL (1.8-2.4); POTASSIUM 3.7 mmol/L (3.5-5.1)
--- NOTE | 2019-12-16 08:07 | NUR ---
ASSUMED CARE OF PT AFTER REPORT AT 1930. PT A&OX4. VSS. PHYSICAL ASSESSMENT COMPLETED AND CHARTED. PT ON RA/CPAP AT HS. PT TRACING ST/BBB ON TELE. PT UP WITH 1 ASSIST. PT DENIES ANY PAIN OR DISCOMFORT. PT REFUSED TO BE TURNED EVEN AFTER EDUCATION. PT ABLE TO SLEEP WELL ON BED. CALL LIGHT WITHIN REACH.
[2019-12-16 09:00] VITALS: BP 117/49
--- NOTE | 2019-12-16 11:19 | NUR ---
FAXED REFERRALS TO [facility], [facility], [facility] AND [facility]. WILL CONFIRM THEY RECEIVED AND BED AVAILABILITY. [facility] [phone]; [phone] DAY[facility]/INTAKE [facility] [phone]; [phone] [facility]/INTAKE [facility] [phone]; [phone] [facility]/INTAKE [facility] [phone]; [phone] RUBY/INTAKE
--- NOTE | 2019-12-16 12:03 | NUR ---
Spoke with , Anticipate dc to skilled on Saturday, pending cultures. DC logistics planner to fax SNF referrals to [facility] and [facility].
[2019-12-16 17:20] VITALS: BP 130/53
[2019-12-16 20:00] VITALS: BP 154/89
[2019-12-17 00:05] VITALS: BP 129/49
[2019-12-17 04:02] VITALS: BP 132/52
[2019-12-17 04:44] LABS: HEMATOCRIT 26.5 % (37.0-47.0); MCH 31.8 pg (26.0-34.0); MCHC 33.8 g/dL (28.0-37.0); MPV 8.2 fl. (7.2-11.1); RBC 2.82 mil/uL (4.20-5.00); RDW-CV 16.7 % (10.5-14.5); WBC 5.7 thou/uL (4.0-11.0)
--- NOTE | 2019-12-17 04:44 | NUR ---
ASSUMED CARE OF PT AFTER REPORT AT 1930. PT A&OX4. VSS. PHYSICAL ASSESSMENT COMPLETED AND CHARTED. PT ON RA/CPAP WHEN SLEEPING. PT ON MEDSURG STATUS. PT UP WITH 2 ASSIST FROM RECLINER TO BED. PT WITH DALEY TO DEPENDENT DRAIN. PT DENIES ANY PAIN OR DISCOMFORT. PT REFUSING TURNS EVEN AFTER EDUCATION. PT ABLE TO SLEEP WELL ON BED. FALL PREACUTIONS IN PLACE. CALL LIGHT WITHIN REACH.
[2019-12-17 04:53] LABS: CALCIUM 8.6 mg/dL (8.5-10.1); CREATININE 0.9 mg/dL (0.6-1.3); MAGNESIUM 1.4 mg/dL (1.8-2.4); POTASSIUM 3.6 mmol/L (3.5-5.1)
--- NOTE | 2019-12-17 13:02 | NUR ---
Pt is discharging to [facility] today. Updated Pt's dtrs. Facility to apple picking supervisor and transport at 4pm. Chart copied. Nurse report number is [phone]
[2019-12-17] MEDS ORDERED: DOXYCYCLINE 10100 MG PO (13:52)
[2019-12-17] MEDS ORDERED: MINOCYCLINE HC100 MG PO (14:38)
[2019-12-17 15:59] VITALS: BP 132/52
--- NOTE | 2019-12-17 16:30 | NUR ---
ASSUMED PT CARE AT 0700, PT A&O X4, VSS, RA, MED SURG STATUS, UP WITH MAX ASSIST AND WALKER, PT/OT ON BOARD. PT DISCHARGED TO REHAB FACILITY AT APPROX 1615 VIA WHEELCHAIR VAN. PT EDUCATED ON MEDICATIONS, THIS NURSE ATTEMPTED TO CALL AND GIVE REPORT BUT NO NURSE PICKED UP LINE TO TAKE REPORT. IV REMOVED, HOURLY ROUNDING COMPLETED.
--- NOTE | 2019-12-23 13:29 | CON ---
[address] [address] CONSULTATION Name: JENNI ASHTON Room: [address] IN M.R.#: [id number] Admission: 12/13/19 Attend Phys: Oksana Beck MD Discharge: 12/17/19 Date of : 46 Report #: [id number] THIS REPORT FOR: //name// cc: YARIEL Lopez family physician/PCP YARIEL - No family physician/PCP ~ THIS REPORT FOR: //name// CC: [facility] physician/PCP Oksana Beck DIAGNOSIS: Right leg cellulitis. HISTORY OF PRESENT ILLNESS: The patient is well known to me from many years of inpatient and outpatient treatment. I have recently been following her at [facility] for a wound to the right posterior leg and a posterior heel. Prior cultures have grown methicillin-sensitive Staph aureus with history of MRSA and group B streptococcus. She has been making clinical progress with smaller wound measurements to the leg; however, this weekend, she developed fevers, chills and malaise. She presented to [facility] for admission. She is currently on parenteral ceftriaxone and oral minocycline. Blood cultures pending x 2. Wound culture was taken today by the wound nurse, and the nurse cleansed the wound and wrapped the leg in a below-knee compression dressing. RADIOLOGIC DATA: Chest x-ray negative for infiltrates, pneumothorax or pleural effusion. LABORATORY DATA: WBC 13.7, RBC 3.10, hemoglobin 9.8, hematocrit 29.4, platelets 181, BUN 30, creatinine 1.2, glucose 247. Albumin 2.9, lactic acid 1.2. PHYSICAL EXAMINATION: The right leg is wrapped in a below-knee compression bandage. I can see a portion of the upper leg below the knee, which is inflamed consistent with cellulitis. Her exposed toes have immediate digital capillary refill. She has chronic lymphedema with likely venous insufficiency component. No open lesions or inflammation to the left leg. IMPRESSION: Cellulitis with ulceration, right lower extremity, type 2 diabetes mellitus, lymphedema/venous insufficiency. PLAN: I will obtain x-rays of the right heel to evaluate for osteomyelitis. The patient to offload heel in [facility], no surgical debridement is warranted at this time. <ELECTRONICALLY SIGNED> By: Carlitos Fagan DPM 12/23/19 1329 26 44Carlitos Fagan DPM /nt
== END 2019-12-17 16:19 | DRG 872 ==
LOC: M.ERS 13:40 → M.ICU 14:18 → M.2W 14:18 → M.TBA-ER 14:18 → M.2W 17:44 → M.ICU 22:21 → M.2W 12-14 12:14
PROVIDERS: Emergency Medicine; ADMIT Internal Medicine
DX: A41.9 Sepsis, unspecified organism (principal); L03.115 Cellulitis of right lower limb; Z68.43 Body mass index [BMI] 50.0-59.9, adult; K46.9 Unspecified abdominal hernia without obstruction or gangrene; Z96.0 Presence of urogenital implants; E78.00 Pure hypercholesterolemia, unspecified; E66.01 Morbid (severe) obesity due to excess calories; E03.9 Hypothyroidism, unspecified; G47.30 Sleep apnea, unspecified; H35.30 Unspecified macular degeneration; M10.9 Gout, unspecified; E78.5 Hyperlipidemia, unspecified; E78.1 Pure hyperglyceridemia; I10 Essential (primary) hypertension; E11.621 Type 2 diabetes mellitus with foot ulcer; L97.509 Non-pressure chronic ulcer of other part of unspecified foot with unspecified severity; Z79.82 Long term (current) use of aspirin; Z87.442 Personal history of urinary calculi; Z98.1 Arthrodesis status; Z79.84 Long term (current) use of oral hypoglycemic drugs; Z79.899 Other long term (current) drug therapy; Z88.2 Allergy status to sulfonamides; Z91.041 Radiographic dye allergy status; Z90.49 Acquired absence of other specified parts of digestive tract

== ENCOUNTER → 2019-12-30 | Outpatient (CLI) | payer MEDICARE, OTHER ==
[~2019-12-30] MED LIST changes: +CRESTOR10 MG PO; +DOXYCYCLINE 10100 MG PO; +MINOCYCLINE HC100 MG PO
== END ==
LOC: M.WC 10:57
DX: E11.622 Type 2 diabetes mellitus with other skin ulcer (principal); L97.212 Non-pressure chronic ulcer of right calf with fat layer exposed; E11.621 Type 2 diabetes mellitus with foot ulcer; L97.412 Non-pressure chronic ulcer of right heel and midfoot with fat layer exposed; L97.312 Non-pressure chronic ulcer of right ankle with fat layer exposed; L03.115 Cellulitis of right lower limb; E11.42 Type 2 diabetes mellitus with diabetic polyneuropathy; E11.51 Type 2 diabetes mellitus with diabetic peripheral angiopathy without gangrene; E78.00 Pure hypercholesterolemia, unspecified; E66.01 Morbid (severe) obesity due to excess calories; E03.9 Hypothyroidism, unspecified; G47.30 Sleep apnea, unspecified; I89.0 Lymphedema, not elsewhere classified; Z68.43 Body mass index [BMI] 50.0-59.9, adult; Z85.828 Personal history of other malignant neoplasm of skin; Z85.3 Personal history of malignant neoplasm of breast; Z87.891 Personal history of nicotine dependence

== ENCOUNTER → 2020-01-20 | Outpatient (CLI) | payer MEDICARE, OTHER | LOC: M.WC 03:24 | DX: E11.622 Type 2 diabetes mellitus with other skin ulcer (principal); L97.211 Non-pressure chronic ulcer of right calf limited to breakdown of skin; L97.311 Non-pressure chronic ulcer of right ankle limited to breakdown of skin; E11.621 Type 2 diabetes mellitus with foot ulcer; L97.412 Non-pressure chronic ulcer of right heel and midfoot with fat layer exposed; L03.115 Cellulitis of right lower limb; I89.0 Lymphedema, not elsewhere classified; E11.40 Type 2 diabetes mellitus with diabetic neuropathy, unspecified; E78.00 Pure hypercholesterolemia, unspecified; E66.01 Morbid (severe) obesity due to excess calories; E03.9 Hypothyroidism, unspecified; G47.30 Sleep apnea, unspecified; Z85.828 Personal history of other malignant neoplasm of skin; Z85.3 Personal history of malignant neoplasm of breast; Z68.43 Body mass index [BMI] 50.0-59.9, adult; Z87.891 Personal history of nicotine dependence ==

== ENCOUNTER → 2020-02-10 | Outpatient (CLI) | payer MEDICARE, OTHER | LOC: M.WC 02:40 | DX: E11.622 Type 2 diabetes mellitus with other skin ulcer (principal); L97.211 Non-pressure chronic ulcer of right calf limited to breakdown of skin; E11.621 Type 2 diabetes mellitus with foot ulcer; L97.412 Non-pressure chronic ulcer of right heel and midfoot with fat layer exposed; L97.311 Non-pressure chronic ulcer of right ankle limited to breakdown of skin; L03.115 Cellulitis of right lower limb; L84 Corns and callosities; I89.0 Lymphedema, not elsewhere classified; E11.42 Type 2 diabetes mellitus with diabetic polyneuropathy; E66.01 Morbid (severe) obesity due to excess calories; E78.00 Pure hypercholesterolemia, unspecified; E03.9 Hypothyroidism, unspecified; G47.30 Sleep apnea, unspecified; Z87.891 Personal history of nicotine dependence; Z85.828 Personal history of other malignant neoplasm of skin; Z85.3 Personal history of malignant neoplasm of breast; Z68.43 Body mass index [BMI] 50.0-59.9, adult ==

== ENCOUNTER → 2020-03-02 | Outpatient (CLI) | payer MEDICARE, OTHER | LOC: M.WC 04:42 | DX: E11.621 Type 2 diabetes mellitus with foot ulcer (principal); L97.412 Non-pressure chronic ulcer of right heel and midfoot with fat layer exposed; L03.115 Cellulitis of right lower limb; I89.0 Lymphedema, not elsewhere classified; E11.42 Type 2 diabetes mellitus with diabetic polyneuropathy; E66.01 Morbid (severe) obesity due to excess calories; E78.00 Pure hypercholesterolemia, unspecified; E03.9 Hypothyroidism, unspecified; G47.30 Sleep apnea, unspecified; Z85.828 Personal history of other malignant neoplasm of skin; Z85.3 Personal history of malignant neoplasm of breast; Z68.43 Body mass index [BMI] 50.0-59.9, adult; Z87.891 Personal history of nicotine dependence ==

== ENCOUNTER → 2020-03-23 | Outpatient (CLI) | payer MEDICARE, OTHER | LOC: M.WC 03:18 | PROVIDERS: ATTEND Podiatrist Foot & Ankle Surgery | DX: E11.621 Type 2 diabetes mellitus with foot ulcer (principal); L97.412 Non-pressure chronic ulcer of right heel and midfoot with fat layer exposed; L03.115 Cellulitis of right lower limb; L84 Corns and callosities; I89.0 Lymphedema, not elsewhere classified; E11.40 Type 2 diabetes mellitus with diabetic neuropathy, unspecified; E66.01 Morbid (severe) obesity due to excess calories; E78.00 Pure hypercholesterolemia, unspecified; E03.9 Hypothyroidism, unspecified; G47.30 Sleep apnea, unspecified; Z68.43 Body mass index [BMI] 50.0-59.9, adult; Z85.828 Personal history of other malignant neoplasm of skin; Z85.3 Personal history of malignant neoplasm of breast; Z87.891 Personal history of nicotine dependence ==

== ENCOUNTER → 2020-04-13 | Outpatient (CLI) | payer MEDICARE, OTHER | LOC: M.WC 03:41 | PROVIDERS: ATTEND Podiatrist Foot & Ankle Surgery | DX: E11.621 Type 2 diabetes mellitus with foot ulcer (principal); L97.412 Non-pressure chronic ulcer of right heel and midfoot with fat layer exposed; L03.115 Cellulitis of right lower limb; I89.0 Lymphedema, not elsewhere classified; E11.42 Type 2 diabetes mellitus with diabetic polyneuropathy; E78.00 Pure hypercholesterolemia, unspecified; E66.01 Morbid (severe) obesity due to excess calories; E03.9 Hypothyroidism, unspecified; G47.30 Sleep apnea, unspecified; Z85.828 Personal history of other malignant neoplasm of skin; Z85.3 Personal history of malignant neoplasm of breast; Z87.891 Personal history of nicotine dependence; Z68.43 Body mass index [BMI] 50.0-59.9, adult ==

== ENCOUNTER 2020-05-11 14:29 | Inpatient (IN) | payer MEDICARE, OTHER ==
[~2020-05-11] VITALS: Ht 167.6 cm; Wt 149.6 kg
[2020-05-11 14:52] VITALS: BP 153/84
[2020-05-11] MEDS ORDERED: MACROBID 100 M100 MG PO (14:58)
[2020-05-11 17:10] LABS: HEMATOCRIT 29.9 % (37.0-47.0); MCH 30.8 pg (26.0-34.0); MCHC 33.3 g/dL (28.0-37.0); MCV 92.4 fL (80.0-100.0); MPV 7.8 fl. (7.2-11.1); NUCLEATED RBCS 0 /100WBC; PLATELET COUNT* 343 thou/uL (150-400); RBC 3.24 mil/uL (4.20-5.00); RDW-CV 16.5 % (10.5-14.5); WBC 15.7 thou/uL (4.0-11.0)
[2020-05-11 17:39] LABS: APTT 24.6 Seconds (25.0-31.3); INR 1.1; PROTIME 11.3 Seconds (9.20-11.50)
[2020-05-11 17:40] LABS: CALCIUM 8.6 mg/dL (8.5-10.1); CREATININE 1.2 mg/dL (0.6-1.3); POTASSIUM 3.4 mmol/L (3.5-5.1)
[2020-05-11 17:45] LABS: ALBUMIN 2.5 g/dL (3.4-5.0); MAGNESIUM 1.8 mg/dL (1.8-2.4); TOTAL BILIRUBIN 0.7 mg/dL (<0.1-1.0); TOTAL PROTEIN 7.6 g/dL (6.4-8.2)
[2020-05-11 17:45] LABS: BE 3.5 mmol/L (-2 to +3); PCO2 34.4 mmHg (35.0-45.0); PO2 76.6 mmHg (75.0-100.0); pH 7.505 (7.340-7.450)
[2020-05-11 18:17] LABS: ABSOLUTE EOSINOPHILS 0.2 thou/uL (0.0-0.7); ABSOLUTE LYMPHOCYTES 1.9 thou/uL (0.8-5.3); ABSOLUTE MONOCYTES 1.1 thou/uL (0.0-1.2); ABSOLUTE NEUTROPHILS 12.6 thou/uL (1.6-8.1)
[2020-05-11 18:18] LABS: ANISOCYTOSIS 1+; PLATELET ESTIMATE ADEQUATE
[2020-05-11 20:17] VITALS: BP 120/45
[2020-05-11 20:40] VITALS: BP 128/60
--- NOTE | 2020-05-12 00:17 | NUR ---
ALERT AND ORIENTED FEMALE TO ROOM 117 FROM ER BY CART IN STABLE CONDITION. ADMISSION ROUTINES IN PROGRESS. VITAL SIGNS STABLE. HOME CPAP SET UP BY RT. QUESTION MRSA HISTORY. CONTACT ISOLATION PENDING CONFIRMATION. CONTINUE TO MONITOR.
--- NOTE | 2020-05-12 04:47 | NUR ---
PATIENT HAS REMAINED ALERT AND ORIENTED X 4 THROUGHOUT THE SHIFT AND RESTING QUIETLY ON HOURLY ROUNDS. WOUND CARE PROVIDED AT ADMISSION. IVF'S AND ANTIBIOTICS PER ORDER. VITAL SIGNS STABLE. HOME CPAP UTILIZED OVERNIGHT. ISOLATION MAINTAINED FOR PENDING CULTURES. CONTINUE TO MONITOR.
[2020-05-12 08:57] VITALS: BP 120/55
[2020-05-12 09:12] LABS: CALCIUM 8.4 mg/dL (8.5-10.1); MAGNESIUM 1.8 mg/dL (1.8-2.4); POTASSIUM 3.6 mmol/L (3.5-5.1)
--- NOTE | 2020-05-12 10:07 | EKG ---
[place] [address] ELECTROCARDIOGRAM REPORT Name: JENNI ASHTON Room: [address] IN [facility]#: [id number] Admission: 05/11/20 Attend Phys: Oksana Beck, Discharge: Date of : 46 Date of Service: 05/11/20 1742 Report #: [id number] THIS REPORT FOR: //name// [facility] ED Test Date: 2020-05-11 Test Time: 17:42:35 Pat Name: JENNI ASHTON Department: Room: [facility] Gender: F Finance Manager: MEI : 1950 Requested By: Rachna Shannon Order Number: [id number] MD: Jose Alfredo Luong Measurements Intervals [place] Rate: 84 P: -28 TX: 180 QRS: -37 QRSD: 146 T: 36 QT: 393 QTc: 465 Interpretive Statements Sinus rhythm Right bundle branch block Compared to ECG 12/13/2019 14:09:36 Sinus tachycardia no longer present Electronically Signed On 05-12-2020 10:07:00 CDT by Jose Alfredo Luong [email or web address] <ELECTRONICALLY SIGNED> By: Jose Alfredo Luong MD, FACC 05/12/20 1007 1742 1742 Jose Alfredo Luong MD, [facility] /EPI
[2020-05-12 15:23] LABS: URINE BILIRUBIN NEGATIVE (Negative); URINE BLOOD NEGATIVE (Negative); URINE COLOR YELLOW; URINE GLUCOSE-RANDOM NEGATIVE (Negative); URINE KETONES 1+ (Negative); URINE LEUKOCYTES-REFLEX TRACE (Negative); URINE NITRITE-REFLEX NEGATIVE (Negative); URINE PROTEIN NEGATIVE (Negative); URINE SPECIFIC GRAVITY 1.025 (1.005-1.030)
[2020-05-12 15:25] LABS: URINE CLARITY HAZY
[2020-05-12 15:31] LABS: BACTERIA-REFLEX 1-9 Few /HPF (None Seen); SQUAMOUS 0-3 Few /LPF (0-3); URINE RBC None Seen /HPF (0-2); URINE WBC-REFLEX >25 Many /HPF (0-5)
[2020-05-12 15:32] LABS: CASTS None Seen /LPF (None Seen); CRYSTALS None Seen /LPF (None Seen); MUCUS 0-3 Light strn/LPF (None Seen)
[2020-05-12 16:00] VITALS: BP 141/57
--- NOTE | 2020-05-12 18:34 | NUR ---
ALERT AND ORIENTED X4. NO COMPLAINTS OF PAIN OR NAUSEA. FLUIDS AND ANTIBIOTICS INFUSED ORDERED. DRESSING TO RIGHT FOOT/HEEL IS CLEAN, DRY AND INTACT. UP STAND BY ASSIST TO THE BEDSIDE COMMODE TO VOID. PATIENT UP IN CHAIR THROUGHOUT SHIFT TODAY. FALL PRECAUTIONS IN PLACE. CALL LIGHT WITHIN REACH. HOURLY ROUNDS COMPLETED. WILL CONTINUE PLAN OF CARE.
[2020-05-12 23:05] VITALS: BP 143/56
--- NOTE | 2020-05-13 05:55 | NUR ---
PT ALERT AND ORIENTED, SHE IS ABLE TO GET UP TO CHAIR. SHE WAS UPSET SHE SAID NO ONE CHANGED HER GOWN ALL DAY, I OFFERED SHE REFUSED SAID DIDNT MATTER SHE WILL BE SLEEPING THEN SHE WANTED SOMEONE TO LOOK AT HER FOOT. SHE WAS UPSET THAT THE DRESSING HAD NOT BEEN LOOKED AT. SHE REFUSED WHEN I OFFERED TO CHANGE IT AND REQUESTED THAT THE DR DO IT. ROOM AIR. SHE WAS ABLE TO SLEEP ALL SHIFT. SHE DID NOT REPORT NAUSEA. PODIATRY TO SEE TODAY. WILL CONTINUE TO FOLLOW PLAN OF CARE.
[2020-05-13 09:00] VITALS: BP 145/68
--- NOTE | 2020-05-13 18:32 | NUR ---
PATIENT ALERT AND OREINTED X4 THROUGHOUT SHIFT. VSS ON ROOM AIR. NO COMPLAINTS OF PAIN THIS SHIFT. PATIENT UP TO CHAIR THIS AM. PATIENT WASHED UP, CLEAN GOWN AND BEDDING CHANGED. INTERDRY PLACED IN SKIN FOLDS. SKIN UNDER BREASTS AND PANUS IS PINK WITH NO BREAKDOWN. WOUND ON RIGHT HEEL CLEANED AND PHOTO TAKEN FOR CHART THIS AM. DR MADRIGAL DID A BEDSIDE DEBRIDEMENT THIS AFTERNOON AND PLACED A BULKY DRESSING, NO DRAINAGE OF THIS NOTE. ACCUCHECK AND INSULIN ORDERED. PATIENT UP WITH WALKER TO BEDSIDE COMMODE. FALL PRECAUTIONS IN PLACE. CALL LIGHT WITHIN REACH. HOURLY ROUNDS COMPLETED. WILL CONTINUE WITH PLAN OF CARE.
[2020-05-14] VITALS: BP 128/41
[2020-05-14 03:15] LABS: HEMOGLOBIN 8.4 gm/dL (12.0-15.0); MCH 31.2 pg (26.0-34.0); MCHC 33.6 g/dL (28.0-37.0); MCV 92.9 fL (80.0-100.0); MPV 6.8 fl. (7.2-11.1); RBC 2.69 mil/uL (4.20-5.00); RDW-CV 16.5 % (10.5-14.5); WBC 7.5 thou/uL (4.0-11.0)
[2020-05-14 03:29] LABS: CALCIUM 8.4 mg/dL (8.5-10.1); CREATININE 1.2 mg/dL (0.6-1.3); MAGNESIUM 1.5 mg/dL (1.8-2.4); POTASSIUM 3.9 mmol/L (3.5-5.1)
--- NOTE | 2020-05-14 06:24 | NUR ---
PT A&O X 4, ON RA, HOME CPAP HS. MEDS GIVEN ORDERED. UP TO BSC WITH MINIMUM ASSIST. SANGUINEOUS DRAINAGE AFTER PT GOT UP. DRESSING REINFORCED. RT LEG ELEVATED ON PILLOW. PT DENIED PAIN. MG REPLACEMENT IN PROGRESS. WILL CONTINUE TO MONITOR.
[2020-05-14 08:45] VITALS: BP 134/50
[2020-05-14 20:20] VITALS: BP 141/68
--- NOTE | 2020-05-14 21:12 | NUR ---
I ASSUMED CARE OF THE PATIENT AT 0700. SHE IS ALERT AND ORIENTED X4 AND IS UP WITH SBA TO THE COMMODE. BED IS IN THE LOW LOCKED POSITION AND CALL LIGHT IS IN REACH. HOURLY ROUNDING IS COMPLETED AND PATIENT NEEDS ARE MET. PAIN IS MANAGED WITH PRN MEDS. SHE IS PLEASANT. DR TAPIA CAME AND RE-DRESSED THE RIGHT FOOT WOUND. BLOOD SUGAR WAS MONITORED AND TREATED WITH INSULIN. SHE IS NWB ON THE RIGHT FOOT. WILL CONTINUE TO MONITOR. PANUS WAS CLEANED AND DRYED AND INTERDRY WAS USED.
[2020-05-15 03:54] LABS: HEMATOCRIT 24.8 % (37.0-47.0); HEMOGLOBIN 8.4 gm/dL (12.0-15.0); MCH 31.4 pg (26.0-34.0); MCHC 33.9 g/dL (28.0-37.0); MCV 92.8 fL (80.0-100.0); MPV 7.2 fl. (7.2-11.1); RBC 2.67 mil/uL (4.20-5.00); RDW-CV 16.6 % (10.5-14.5); WBC 7.1 thou/uL (4.0-11.0)
--- NOTE | 2020-05-15 04:26 | NUR ---
PATIENT HAS REMAINED ALERT AND ORIENTED X 4 THROUGHOUT THE SHIFT AND RESTING QUIETLY ON HOURLY ROUNDS. UP WITH WALKER/NWB ON HEEL IN ROOM SBA. DRESSING RLE CLEAN AND DRY. RLE ELEVATION MAINTAINED WHEN IN CHAIR OR BED. DENIES PAIN. VITAL SIGNS STABLE. HOME CPAP ON AT HS. CONTINUE TO MONITOR.
[2020-05-15 08:00] VITALS: BP 130/64
[2020-05-15 16:17] VITALS: BP 131/66
--- NOTE | 2020-05-15 18:11 | NUR ---
PT UP IN CHAIR THROUGHTOUT SHIFT. PT SHIFTS POSITIONS. PT CALLS APPROPRIATELY FOR ASSIST TO BSC. NMW TO RLE. TOLERATING PO WELL. BG WELL CONTROLLED. PODIATRY AT BS FOR DSG CHANGE THIS AM
[2020-05-15 20:30] VITALS: BP 143/60
[2020-05-16 04:38] LABS: HEMOGLOBIN 8.5 gm/dL (12.0-15.0); MCH 31.6 pg (26.0-34.0); MCHC 33.9 g/dL (28.0-37.0); RBC 2.69 mil/uL (4.20-5.00); RDW-CV 16.6 % (10.5-14.5); WBC 7.1 thou/uL (4.0-11.0)
[2020-05-16 04:56] LABS: CALCIUM 8.7 mg/dL (8.5-10.1); CREATININE 1.2 mg/dL (0.6-1.3); MAGNESIUM 1.7 mg/dL (1.8-2.4)
--- NOTE | 2020-05-16 05:01 | NUR ---
PATIENT HAS REMAINED ALERT AND ORIENTED X 4 THROUGHOUT THE SHIFT AND RESTING QUIETLY ON HOURLY ROUNDS. UP WITH SBA AND WALKER. DENIES PAIN. VITAL SIGNS STABLE/AFEBRILE. BM THIS SHIFT. DRESSING RIGHT FOOT/HEEL CLEAN AND DRY. CPAP AT HS. MEDS/ANTIBIOTICS PER ORDER. CONTINUE TO MONITOR.
[2020-05-16] MEDS ORDERED: AMOX TR-K CLV1 EAC4 PO (07:54)
[2020-05-16] MEDS ORDERED: MAGNESIUM400 MG PO (07:55)
[2020-05-16] MEDS ORDERED: FLORANEX TABLE1 EACH PO (07:55)
[2020-05-16 08:35] VITALS: BP 146/70
[2020-05-16 09:36] VITALS: BP 143/60
--- NOTE | 2020-05-16 12:00 | NUR ---
PT.UP IN CHAIR. SHE HAS DISCHARGE ORDERS TODAY FOR HOME WITH HOME HEALTH. SHE SAID SHE AND DAUGHTER FLORI ASHTON LIVE TOGETHER,SINCE PTS 2 YRS AGO. SHE HAS A CPAP, HOSPITAL BED,CANE AND WALKER AT HOME. SHE IS CURRENTLY ON SERVICE WITH [facility]. SHE IS INDEPENDENT AT HOME. [facility] CONTACTED KAYLEIGH AT [facility]. SHE SAID SHE WOULD LET HER TEAM KNOW ABOUT PT.DISCHARGING TODAY. FAXED H&P, PROGRESS NOTE FROM 05/15 AND DISCHARGE SUMMARY TO [facility] [phone]. RN CHECKED WITH . HE SAID HE DID NOT NEED TO SEE PT.TODAY. [facility]ING CALLED FOR AN APPT.TO SEE HIM IN WOUND CARE CLINIC FOR NEXT WED.INFORMATION PUT IN DISCHARGE ORDERS.
[2020-05-16 12:42] VITALS: BP 143/60
[2020-05-16 12:48] VITALS: BP 143/60
[2020-05-16 12:51] VITALS: BP 143/60
--- NOTE | 2020-05-16 13:47 | NUR ---
Pt given discharge instructions and prescriptions sent to preferred pharmacy. Belongings returned and IV removed. Pt verbalized understanding and all questions answered. No concerns at discharge, pt in stable condition.
[2020-05-16 13:49] VITALS: BP 143/60
--- NOTE | 2020-05-18 13:07 | CON ---
[address] [address] CONSULTATION Name: JENNI ASHTON Room: [address] IN .R.#: [id number] Admission: 05/11/20 Attend Phys: Oskana Beck MD Discharge: 05/16/20 Date of : 46 Report #: [id number] THIS REPORT FOR: //name// cc: Doug Miranda MD, Stephen R. MD ~ THIS REPORT FOR: //name// CC: Oksana Miranda DATE OF SERVICE: 05/15/2020 CHIEF COMPLAINT: Right heel ulceration with deep tissue infection, diabetes mellitus 2, lymphedema. Swab cultures grew E. coli and group B Streptococcus. She remains on parenteral linezolid and ceftriaxone. She has a good appetite, denies fevers/chills/malaise. She has remained nonweightbearing to the foot. A CT and MRI negative for osteomyelitis. A prior vascular workup negative for macrovascular disease. LABORATORY DATA: WBC is 7.1, RBC 2.67, hemoglobin 8.4, hematocrit 24.8, platelets 294. BUN 18, creatinine 1.2, glucose 197. PHYSICAL EXAMINATION: Temperature 97.5, pulse 79, respirations 18, blood pressure 141/68. The right heel wound is significantly improved since yesterday. The inflammations substantially decreased and fairly low-grade. The heel wound has red granulation with minimal friable slough. No palpable or visible heel calcaneus. The foot is warm with no signs of acute vascular embarrassment. No underlying fluctuance or crepitation. IMPRESSION: Deep tissue infection, right heel with diabetes mellitus. PLAN: The wound was debrided with scissors and forceps to remove some friable subcutaneous tissue from the wound margins. Scant bleeding will stop the pressure. This was an excisional subcutaneous wound debridement. The wound was cleansed with saline, dried and dressed with Adaptic, 4 x 4s, ABD, Kerlix, and Jesus. The patient to remain strictly nonweightbearing to the foot. I will follow up with her tomorrow and discuss discharge plans. <ELECTRONICALLY SIGNED> By: Carlitos Fagan DPM 05/18/20 1307 1000 [id number] Fagan DPM /nt
--- NOTE | 2020-05-18 13:07 | CON ---
[address] [address] CONSULTATION Name: JENNI ASHTON Room: [address] IN M.R.#: [id number] Admission: 05/11/20 Attend Phys: Oksana Beck MD Discharge: 05/16/20 Date of : 46 Report #: [id number] THIS REPORT FOR: //name// cc: Doug Miranda MD, Stephen R. MD ~ THIS REPORT FOR: //name// CC: Oksana Miranda DATE OF SERVICE: 05/13/2020 ADMISSION DIAGNOSES: Soft tissue infection, right plantar heel, with fevers. HISTORY OF PRESENT ILLNESS: The patient is well known to me from outpatient [facility] from right posterior and plantar heel ulcerations with type 2 diabetes mellitus and lymphedema. She relates worsening swelling, drainage and inflammation to the right heel over the last week, with fevers and chills for the last 2 days. She missed her last 2 wound care appointments, so I have not seen her for several weeks. Prior cultures grew Enterobacter, Enterococcus faecalis and Staphylococcus caprae. She had home health care nurse who was monitoring the wound. She denies pain to the extremity due to advanced diabetic peripheral sensory neuropathy. She is currently on parenteral vancomycin 300 mg b.i.d. and ceftriaxone 1 gram daily. Today's right foot MRI was negative for osteomyelitis, although there was evidence of a large skin ulceration overlying the heel fat pad with a 6.0 x 7.0 mm ovoid fluid collection just superficial to the plantar fascial attachment. There was no abscess noted. Admission CT of the right foot was negative for osteomyelitis or abscess. She has had prior arterial Doppler studies, and in fact I referred her to [facility] earlier this year for vascular workup and there were no signs of occlusion or macrovascular disease. LABORATORY DATA: BUN 19, creatinine 1.0, glucose 126. PHYSICAL EXAMINATION: Large necrotic ulceration to the right plantar calcaneus that encompasses nearly the entire inferior heel surface. The area is inflamed and edematous with no underlying fluctuance or crepitation. The wound is contiguous with the proceeding posterior calcaneal wound, which I was treating as an outpatient at the [facility]. The right posterior calf wound remains healed. She has advanced lymphedema to both extremities with cellulitis to the right leg worsening about the heel region. Her feet are warm with no signs of acute vascular embarrassment. There is no palpable bone through the plantar heel wound. No visible plantar fascia noted. IMPRESSION: Deep tissue infection, right inferior heel complicated by type 2 diabetes mellitus [place] [address] CONSULTATION Name: POLIJENNI L Room: [address] IN ..#: [id number] Admission: 05/11/20 Attend Phys: Oksana Beck MD Discharge: 05/16/20 Date of : 46 Report #: [id number] PLAN: An excisional ulcer debridement was performed with a #10 blade to excise subcutaneous tissue from the right inferior heel over total area of roughly 40 cm2. After debridement, there was bleeding which was stopped with direct pressure. There is no visible or palpable bone. The wound was lavaged with sterile saline, dried, and packed with Aquacel Ag and dressed with ABDs, Kerlix and Jesus bandage. The patient instructed to elevate the extremity. She will require serial bedside debridement during her hospital stay. I do not anticipate the need for formal surgical debridement in the operating room at this point. <ELECTRONICALLY SIGNED> By: Carlitos Fagan DPM 05/18/20 1307 1705 1958Carlitos Fagan DPM /nt
--- NOTE | 2020-05-18 13:07 | CON ---
[address] [address] CONSULTATION Name: JENNI ASHTON Room: [address] IN M.R.#: [id number] Admission: 05/11/20 Attend Phys: Oksana Beck MD Discharge: 05/16/20 Date of : 46 Report #: [id number] THIS REPORT FOR: //name// cc: Doug Miranda MD, Stephen R. MD ~ THIS REPORT FOR: //name// CC: Oksana Miranda DATE OF SERVICE: 05/14/2020 CHIEF COMPLAINT: Deep tissue infection with ulceration, right plantar foot with diabetes mellitus and lymphedema. I performed extensive bedside debridement yesterday and excised a large amount of necrotic infected tissue from the right inferior heel. Prior swab cultures growing gram-negative rods, gram-positive rods and gram variable rods. She is on parenteral linezolid and ceftriaxone. She denies foot pain, although she has extensive peripheral sensory neuropathy. She had some bleeding overnight, which has stopped. She is mostly nonweightbearing, although she has walked on the foot to transfer from chair to the bed. She has good appetite, she has been afebrile with no fevers, chills or malaise. LABORATORY DATA: WBC 7.5, RBC 2.69, hemoglobin 8.4, hematocrit 25.0, platelets 297. BUN 18, creatinine 1.2, glucose 197. PHYSICAL EXAMINATION: Large ulceration to right inferior heel with no active bleeding. The wound is mostly fibrotic tissue with decreased erythema. The foot and leg are warm with no pallor/cyanosis or signs of acute vascular embarrassment. Overall, much clinically improved. IMPRESSION: Deep tissue infection with ulceration of right plantar foot, type 2 diabetes mellitus, lymphedema. PLAN: The wound was cleansed, dried and dressed with Xeroform, ABDs, Kerlix and Jesus bandage. The patient is encouraged to elevate foot and remain off it. Awaiting culture results. I will see her tomorrow for dressing change. <ELECTRONICALLY SIGNED> By: Carlitos Fagan DPM 05/18/20 1307 1059 1134Ddorita Fagan DPM /nt
== END 2020-05-16 14:02 | disposition home health service (06) | DRG 854 ==
LOC: M.ERS 14:29 → M.TBA-ER 18:40 → M.ORTHSURG 18:40
PROVIDERS: Internal Medicine; Personal Emergency Response Attendant; ADMIT Internal Medicine; ATTEND Internal Medicine
PROC: 0JBQ0ZZ Excision of Right Foot Subcutaneous Tissue and Fascia, Open Approach (ICD-10-PCS; principal; 2020-05-13)
PROC: 0JBQ0ZZ Excision of Right Foot Subcutaneous Tissue and Fascia, Open Approach (ICD-10-PCS; 2020-05-15)
DX: A40.1 Sepsis due to streptococcus, group B (principal); L03.115 Cellulitis of right lower limb; E44.0 Moderate protein-calorie malnutrition; L97.419 Non-pressure chronic ulcer of right heel and midfoot with unspecified severity; Z68.43 Body mass index [BMI] 50.0-59.9, adult; M72.2 Plantar fascial fibromatosis; Z96.0 Presence of urogenital implants; E78.00 Pure hypercholesterolemia, unspecified; E66.01 Morbid (severe) obesity due to excess calories; E03.9 Hypothyroidism, unspecified; G47.30 Sleep apnea, unspecified; N18.3 Chronic kidney disease, stage 3 (moderate); E87.6 Hypokalemia; I89.0 Lymphedema, not elsewhere classified; E11.42 Type 2 diabetes mellitus with diabetic polyneuropathy; L89.616 Pressure-induced deep tissue damage of right heel; G47.33 Obstructive sleep apnea (adult) (pediatric); I87.8 Other specified disorders of veins; B96.20 Unspecified Escherichia coli [E. coli] as the cause of diseases classified elsewhere; B95.1 Streptococcus, group B, as the cause of diseases classified elsewhere; Z20.828 Contact with and (suspected) exposure to other viral communicable diseases; M10.9 Gout, unspecified; E11.22 Type 2 diabetes mellitus with diabetic chronic kidney disease; E11.622 Type 2 diabetes mellitus with other skin ulcer; Z85.3 Personal history of malignant neoplasm of breast; Z79.82 Long term (current) use of aspirin; Z87.442 Personal history of urinary calculi; Z85.828 Personal history of other malignant neoplasm of skin; Z79.4 Long term (current) use of insulin; Z88.1 Allergy status to other antibiotic agents; Z88.8 Allergy status to other drugs, medicaments and biological substances

== ENCOUNTER → 2020-05-25 | Outpatient (CLI) | payer MEDICARE, OTHER ==
[~2020-05-25] MED LIST changes: +AMOX TR-K CLV1 EAC4 PO; +FLORANEX TABLE1 EACH PO; +MACROBID 100 M100 MG PO; +MAGNESIUM400 MG PO
== END ==
LOC: M.WC 02:01
PROVIDERS: ATTEND Podiatrist Foot & Ankle Surgery
DX: E11.621 Type 2 diabetes mellitus with foot ulcer (principal); L97.412 Non-pressure chronic ulcer of right heel and midfoot with fat layer exposed; L97.511 Non-pressure chronic ulcer of other part of right foot limited to breakdown of skin; L03.115 Cellulitis of right lower limb; I89.0 Lymphedema, not elsewhere classified; E11.42 Type 2 diabetes mellitus with diabetic polyneuropathy; E78.00 Pure hypercholesterolemia, unspecified; E66.01 Morbid (severe) obesity due to excess calories; E03.9 Hypothyroidism, unspecified; G47.30 Sleep apnea, unspecified; Z85.828 Personal history of other malignant neoplasm of skin; Z87.891 Personal history of nicotine dependence; Z85.3 Personal history of malignant neoplasm of breast; Z68.43 Body mass index [BMI] 50.0-59.9, adult

== ENCOUNTER → 2020-06-01 | Outpatient (CLI) | payer MEDICARE, OTHER | LOC: M.WC 04:13 | PROVIDERS: ATTEND Podiatrist Foot & Ankle Surgery | DX: E11.621 Type 2 diabetes mellitus with foot ulcer (principal); L97.416 Non-pressure chronic ulcer of right heel and midfoot with bone involvement without evidence of necrosis; L97.511 Non-pressure chronic ulcer of other part of right foot limited to breakdown of skin; L03.115 Cellulitis of right lower limb; I89.0 Lymphedema, not elsewhere classified; E11.40 Type 2 diabetes mellitus with diabetic neuropathy, unspecified; E66.01 Morbid (severe) obesity due to excess calories; E78.00 Pure hypercholesterolemia, unspecified; E03.9 Hypothyroidism, unspecified; G47.30 Sleep apnea, unspecified; Z85.828 Personal history of other malignant neoplasm of skin; Z85.3 Personal history of malignant neoplasm of breast; Z87.891 Personal history of nicotine dependence; Z68.43 Body mass index [BMI] 50.0-59.9, adult ==

== ENCOUNTER → 2020-06-08 | Outpatient (CLI) | payer MEDICARE, OTHER | LOC: M.WC 03:44 | PROVIDERS: ATTEND Podiatrist Foot & Ankle Surgery | DX: E11.621 Type 2 diabetes mellitus with foot ulcer (principal); L97.412 Non-pressure chronic ulcer of right heel and midfoot with fat layer exposed; L97.416 Non-pressure chronic ulcer of right heel and midfoot with bone involvement without evidence of necrosis; L97.511 Non-pressure chronic ulcer of other part of right foot limited to breakdown of skin; L03.115 Cellulitis of right lower limb; I89.0 Lymphedema, not elsewhere classified; E11.40 Type 2 diabetes mellitus with diabetic neuropathy, unspecified; E78.00 Pure hypercholesterolemia, unspecified; E03.9 Hypothyroidism, unspecified; G47.30 Sleep apnea, unspecified; E66.01 Morbid (severe) obesity due to excess calories; Z68.43 Body mass index [BMI] 50.0-59.9, adult; Z85.828 Personal history of other malignant neoplasm of skin; Z85.3 Personal history of malignant neoplasm of breast; Z87.891 Personal history of nicotine dependence; Z79.4 Long term (current) use of insulin ==

== ENCOUNTER 2020-06-21 19:22 | Inpatient (IN) | payer MEDICARE, OTHER ==
[~2020-06-21] VITALS: Ht 167.6 cm; Wt 147.4 kg
--- NOTE | ~2020-06-21 | CON ---
[address] [address] CONSULTATION Name: JENNI ASHTON Room: [address] IN [place].#: [id number] Admission: 06/21/20 Attend Phys: Saravanan Joshi Discharge: Date of : 46 Report #: [id number] THIS REPORT FOR: //name// cc: Doug Miranda MD, Stephen R. MD ~ THIS REPORT FOR: //name// CC: Doug Bennett DATE OF SERVICE: 06/29/2020 CHIEF COMPLAINT: Status post right partial calcanectomy with wound debridement for osteomyelitis. HISTORY OF PRESENT ILLNESS: She is awaiting placement to the [facility]. She is working with physical therapy, doing slide transfers to remain nonweightbearing to the right foot. I do anticipate placement of a wound vacuum maybe next week once adequate hemostasis has been achieved, along with decreased bacterial burden to the wound. I am going to leave her bandage on today since she has had some bleeding and currently working with physical therapy. I will have it changed by the wound nurse tomorrow. She feels well, denies foot pain, good appetite. She has been afebrile with no malaise. Bone cultures grew Enterobacter cloacae and Morganella morganii. Soft tissue cultures grew same in addition to Enterococcus, Proteus mirabilis and Klebsiella oxytoca. She is currently on parenteral Zosyn and oral linezolid with good tolerance. Surgical pathology of the bone showed extensive osteomyelitis to the calcaneus. LABORATORY DATA: WBC 5.8, RBC 2.55, hemoglobin 7.7, hematocrit 23.4, platelets 303. BUN 16, creatinine 1.2, glucose 132. PHYSICAL EXAMINATION: Vitals; Temperature 97.7, pulse 76, respiration 17, blood pressure 126/49. The patient was currently doing physical therapy. I did inspect her bandage, which was dry and clean with no bleed through. PLAN: I will have her bandaged changed tomorrow. Hopefully, she can be transferred to the rehabilitation floor for continued rehabilitation, wound care and parenteral antibiotics. I would like her strictly nonweightbearing to the right heel for offloading, but also to prevent additional bleeding. I will put her on a formal nonweightbearing order for the physical therapist. They are currently doing slightly transfers to the commode. I do anticipate placement of a wound vacuum, but not until there is decreased bioburden and wound hemostasis. By: 1613 2036Carlitos Fagan DPM /kortney
[2020-06-21 19:23] VITALS: BP 119/47
[2020-06-21 19:52] LABS: ABSOLUTE LYMPHOCYTES 1.1 thou/uL (0.8-5.3); ABSOLUTE MONOCYTES 0.8 thou/uL (0.0-1.2); ABSOLUTE NEUTROPHILS 8.7 thou/uL (1.6-8.1); BASOPHILS 0.2 %; EOSINOPHILS 0.3 %; HEMATOCRIT 26.5 % (37.0-47.0); LYMPHOCYTES 10.5 %; MCH 30.5 pg (26.0-34.0); MCHC 33.8 g/dL (28.0-37.0); MCV 90.1 fL (80.0-100.0); MONOCYTES 7.2 %; MPV 6.6 fl. (7.2-11.1); NUCLEATED RBCS 0 /100WBC; PLATELET COUNT* 320 thou/uL (150-400); POLYS 81.8 %; RBC 2.94 mil/uL (4.20-5.00); RDW-CV 18.3 % (10.5-14.5); WBC 10.6 thou/uL (4.0-11.0)
[2020-06-21 20:00] LABS: CREATININE 1.2 mg/dL (0.6-1.3); POTASSIUM 3.2 mmol/L (3.5-5.1)
[2020-06-21 20:02] LABS: INR 1.1; PROTIME 11.4 Seconds (9.20-11.50)
[2020-06-21 20:10] LABS: ALBUMIN 2.5 g/dL (3.4-5.0); MAGNESIUM 1.7 mg/dL (1.8-2.4); TOTAL BILIRUBIN 0.6 mg/dL (<0.1-1.0); TOTAL PROTEIN 7.6 g/dL (6.4-8.2)
[2020-06-21 23:59] VITALS: BP 125/62
[2020-06-22] VITALS: BP 111/48
--- NOTE | 2020-06-22 10:11 | EKG ---
[place] [address] ELECTROCARDIOGRAM REPORT Name: JENNI ASHTON Room: [address] IN ..#: [id number] Admission: 06/21/20 Attend Phys: Isaac Bennett Discharge: Date of : 46 Date of Service: 06/21/201955 Report #: [id number] THIS REPORT FOR: //name// [facility] ED Test Date: 2020-06-21 Test Time: 19:56:11 Pat Name: JENIN ASHTON Department: Room: [facility] Gender: F Licensed Investment Sales Assistant: [place] : 1950 Requested By: Belinda Aranda Order Number: [id number] MD: Jose Alfredo Luong Measurements Intervals [place] Rate: 96 P: 45 NM: 163 QRS: -40 QRSD: 149 T: 52 QT: 384 QTc: 486 Interpretive Statements Sinus rhythm RBBB and LAFB Compared to ECG 05/11/2020 17:42:35 Left anterior fascicular block now present Electronically Signed On 06-22-2020 10:11:25 CDT by Jose Alfredo Luong [email or web address] <ELECTRONICALLY SIGNED> By: Jose Alfredo Luong MD, FAC 06/22/20 1011 55 55 Jose Alfredo Luong MD, [facility] /EPI
[2020-06-22 17:15] VITALS: BP 122/56
[2020-06-22 21:30] VITALS: BP 132/56
[2020-06-23 04:41] LABS: HEMATOCRIT 22.9 % (37.0-47.0); HEMOGLOBIN 7.7 gm/dL (12.0-15.0); MCH 30.3 pg (26.0-34.0); MCHC 33.5 g/dL (28.0-37.0); MCV 90.6 fL (80.0-100.0); RBC 2.53 mil/uL (4.20-5.00); RDW-CV 17.8 % (10.5-14.5); WBC 6.8 thou/uL (4.0-11.0)
[2020-06-23 04:57] LABS: ALBUMIN 2.1 g/dL (3.4-5.0); CALCIUM 8.5 mg/dL (8.5-10.1); CREATININE 1.1 mg/dL (0.6-1.3); MAGNESIUM 1.6 mg/dL (1.8-2.4); TOTAL BILIRUBIN 0.6 mg/dL (<0.1-1.0); TOTAL PROTEIN 6.8 g/dL (6.4-8.2)
[2020-06-23 08:00] VITALS: BP 98/53
[2020-06-23 10:26] VITALS: BP 116/49
[2020-06-23 16:00] VITALS: BP 137/53
[2020-06-23 20:00] VITALS: BP 137/60
[2020-06-24 05:20] LABS: HEMOGLOBIN 7.9 gm/dL (12.0-15.0); MCH 29.6 pg (26.0-34.0); MCHC 32.8 g/dL (28.0-37.0); MCV 90.4 fL (80.0-100.0); MPV 7.1 fl. (7.2-11.1); RBC 2.65 mil/uL (4.20-5.00); RDW-CV 18.5 % (10.5-14.5); WBC 6.2 thou/uL (4.0-11.0)
[2020-06-24 05:36] LABS: ALBUMIN 2.1 g/dL (3.4-5.0); CALCIUM 8.8 mg/dL (8.5-10.1); CREATININE 1.3 mg/dL (0.6-1.3); MAGNESIUM 1.5 mg/dL (1.8-2.4); POTASSIUM 3.9 mmol/L (3.5-5.1); TOTAL BILIRUBIN 0.6 mg/dL (<0.1-1.0); TOTAL PROTEIN 6.8 g/dL (6.4-8.2)
[2020-06-24 07:40] VITALS: BP 110/55
--- NOTE | 2020-06-24 10:16 | EKG ---
[place] [address] ELECTROCARDIOGRAM REPORT Name: JENNI ASHTON Room: [address] IN ..#: [id number] Admission: 06/21/20 Attend Phys: Isaac Bennett Discharge: Date of : 46 Date of Service: 06/24/20 0838 Report #: [id number] THIS REPORT FOR: //name// [facility] Test Date: 2020-06-24 Test Time: 08:38:08 Pat Name: JENNI ASHTON Department: Room: [address] Gender: F Project Builder: : 1950 Requested By: Carlitos Fagan Order Number: [id number] Meghann MD: Jose Alfredo Luong Measurements Intervals [place] Rate: 81 P: 17 CO: 181 QRS: 2 QRSD: 141 T: 58 QT: 410 QTc: 476 Interpretive Statements Sinus rhythm Right bundle branch block Compared to ECG 06/21/2020 19:56:11 Left anterior fascicular block no longer present Electronically Signed On 06-24-2020 10:16:30 CDT by Jose Alfredo Luong [email or web address] <ELECTRONICALLY SIGNED> By: Jose Alfredo Luong MD, FAC 06/24/20 1016 0838 Jose Alfredo Luong MD, [facility] /EPI
[2020-06-24 13:34] LABS: URINE BILIRUBIN NEGATIVE (Negative); URINE BLOOD NEGATIVE (Negative); URINE CLARITY CLEAR; URINE COLOR YELLOW; URINE GLUCOSE-RANDOM NEGATIVE (Negative); URINE KETONES NEGATIVE (Negative); URINE LEUKOCYTES-REFLEX NEGATIVE (Negative); URINE NITRITE-REFLEX NEGATIVE (Negative); URINE PROTEIN TRACE (Negative); URINE SPECIFIC GRAVITY 1.025 (1.005-1.030)
[2020-06-24 18:15] VITALS: BP 130/61
[2020-06-24 19:45] VITALS: BP 136/54
[2020-06-25 00:05] VITALS: BP 119/52
[2020-06-25 04:03] LABS: HEMATOCRIT 22.9 % (37.0-47.0); HEMOGLOBIN 7.5 gm/dL (12.0-15.0); MCH 29.8 pg (26.0-34.0); MCHC 32.6 g/dL (28.0-37.0); MCV 91.3 fL (80.0-100.0); MPV 6.9 fl. (7.2-11.1); RBC 2.51 mil/uL (4.20-5.00); RDW-CV 18.2 % (10.5-14.5); WBC 6.2 thou/uL (4.0-11.0)
[2020-06-25 04:30] VITALS: BP 120/59
[2020-06-25 04:31] LABS: ALBUMIN 2.2 g/dL (3.4-5.0); CALCIUM 8.7 mg/dL (8.5-10.1); CREATININE 1.2 mg/dL (0.6-1.3); MAGNESIUM 1.9 mg/dL (1.8-2.4); TOTAL BILIRUBIN 0.6 mg/dL (<0.1-1.0); TOTAL PROTEIN 6.8 g/dL (6.4-8.2)
[2020-06-25 04:34] LABS: POTASSIUM 4.9 mmol/L (3.5-5.1)
[2020-06-25 08:05] VITALS: BP 131/53
[2020-06-25 16:00] VITALS: BP 99/45
[2020-06-25 20:15] VITALS: BP 125/52
[2020-06-26 04:29] LABS: HEMATOCRIT 21.7 % (37.0-47.0); HEMOGLOBIN 7.2 gm/dL (12.0-15.0); MCH 30.1 pg (26.0-34.0); MCHC 33.3 g/dL (28.0-37.0); MCV 90.5 fL (80.0-100.0); MPV 7.1 fl. (7.2-11.1); RBC 2.39 mil/uL (4.20-5.00); WBC 5.6 thou/uL (4.0-11.0)
[2020-06-26 04:58] LABS: CALCIUM 8.4 mg/dL (8.5-10.1); CREATININE 1.2 mg/dL (0.6-1.3); POTASSIUM 4.3 mmol/L (3.5-5.1)
[2020-06-26 08:33] VITALS: BP 127/63
[2020-06-26 20:05] VITALS: BP 138/65
[2020-06-27 03:36] LABS: HEMATOCRIT 22.8 % (37.0-47.0); HEMOGLOBIN 7.5 gm/dL (12.0-15.0); MCH 29.9 pg (26.0-34.0); MCHC 32.7 g/dL (28.0-37.0); MCV 91.6 fL (80.0-100.0); MPV 6.6 fl. (7.2-11.1); RBC 2.49 mil/uL (4.20-5.00); RDW-CV 18.5 % (10.5-14.5); WBC 6.5 thou/uL (4.0-11.0)
[2020-06-27 03:57] LABS: ALBUMIN 2.3 g/dL (3.4-5.0); CALCIUM 8.7 mg/dL (8.5-10.1); CREATININE 1.4 mg/dL (0.6-1.3); MAGNESIUM 1.6 mg/dL (1.8-2.4); POTASSIUM 4.2 mmol/L (3.5-5.1); TOTAL BILIRUBIN 0.4 mg/dL (<0.1-1.0); TOTAL PROTEIN 6.7 g/dL (6.4-8.2)
[2020-06-27 08:10] VITALS: BP 127/53
[2020-06-27 16:00] VITALS: BP 154/56
[2020-06-27 19:48] VITALS: BP 157/65
[2020-06-28 03:51] LABS: HEMATOCRIT 23.4 % (37.0-47.0); HEMOGLOBIN 7.7 gm/dL (12.0-15.0); MCH 30.2 pg (26.0-34.0); MCHC 33.1 g/dL (28.0-37.0); MCV 91.4 fL (80.0-100.0); MPV 6.6 fl. (7.2-11.1); RBC 2.55 mil/uL (4.20-5.00); WBC 5.8 thou/uL (4.0-11.0)
[2020-06-28 04:02] LABS: CALCIUM 8.4 mg/dL (8.5-10.1); CREATININE 1.2 mg/dL (0.6-1.3)
[2020-06-28 08:00] VITALS: BP 137/56
[2020-06-28 08:25] VITALS: BP 137/56
[2020-06-28 16:00] VITALS: BP 125/49
[2020-06-28 19:51] VITALS: BP 126/49
[2020-06-29 08:20] VITALS: BP 142/66
--- NOTE | 2020-06-29 12:26 | CON ---
[address] [address] CONSULTATION Name: JENNI ASHTON Room: [address] IN [place]ip.#: [id number] Admission: 06/21/20 Attend Phys: Saravanan Joshi Discharge: Date of : 46 Report #: [id number] THIS REPORT FOR: //name// cc: Doug Miranda MD, Stephen R. MD ~ THIS REPORT FOR: //name// CC: Doug Bennett DATE OF SERVICE: 06/27/2020 CHIEF COMPLAINT AND HISTORY OF PRESENT ILLNESS: Postoperative day #3 for right partial calcanectomy and soft tissue debridement. Polymicrobial surgical cultures growing Proteus mirabilis, Enterococcus, Klebsiella oxytoca and Enterobacter cloacae. Surgical pathology is pending. She is on parenteral Zosyn and oral linezolid with good tolerance. She has minimal discomfort, decreased p.o. intake. She is mostly remain nonweightbearing to the foot, although she has to place some foot to the forefoot to transfer. Her dressing was changed by Kolby, the wound nurse today. He said there was no active bleeding during the dressing change. LABORATORY DATA: WBC 6.5, RBC 2.49, hemoglobin 7.5, hematocrit 22.8, and platelets 315. BUN 21, creatinine 1.4, and glucose 139. PHYSICAL EXAMINATION: Temperature 98.1, pulse 93, respiration 17, and blood pressure 157/65. The dressing is dry, clean and intact with no bleed through. I did not unwrap it since it was changed earlier today. The inflammation to the upper leg has decreased since hospital admission. No popliteal tenderness or calf pain. PLAN: We will use wound vacuum next week to facilitate granulation once hemostasis is adequate and soft tissue has decreased bacterial burden. The patient instructed to remain strictly nonweightbearing except that she has to transfer from bed to a chair or commode. Hopefully, she will require some jail for rehabilitation. <ELECTRONICALLY SIGNED> By: Carlitos Fagan DPM 06/29/20 1226 01 Ddorita Fagan DPM /nt
--- NOTE | 2020-06-29 12:26 | CON ---
[address] [address] CONSULTATION Name: JENNI ASHTON Room: [address] IN [place]ip.#: [id number] Admission: 06/21/20 Attend Phys: Saravanan Joshi Discharge: Date of : 46 Report #: [id number] THIS REPORT FOR: //name// cc: Doug Miranda MD, Stephen R. MD ~ THIS REPORT FOR: //name// CC: Doug Bennett DATE OF SERVICE: 06/22/2020 ADMISSION DIAGNOSIS: Diabetic foot ulceration with cellulitis, right heel. HISTORY OF PRESENT ILLNESS: The patient is a 70-year-old female well known to me from outpatient wound care. She is admitted through the Emergency Department yesterday for worsening inflammation to the right foot wound with concomitant fever, chills and malaise. She started having night sweats and generalized malaise on Saturday, continuing into hospital admissions. She was discharged roughly 5 weeks ago for foot wound related cellulitis. She has been on oral Augmentin 875 mg b.i.d. since discharge. Previous wound cultures are polymicrobial with group B strep, E. coli, Proteus, Enterococcus and methicillin-sensitive Staphylococcus aureus. She has a remote history of MRSA several years ago. She is currently on parenteral Zosyn and linezolid. Venous Doppler was negative, blood cultures are pending. Wound culture shows gram-negative rods and gram-positive cocci. Foot radiographs show cortical thinning of the inferior right calcaneus. LABORATORY DATA: WBC 10.6, hemoglobin 9.0, hematocrit 26.5, platelets 320. BUN 23, creatinine 1.2, glucose 45, magnesium 1.7. Albumin 2.5. PHYSICAL EXAMINATION: There is a large ulceration to the right inferior calcaneus that measures roughly 8.0 x 8.0 x 2.0 cm. The bone is not directly visible, although I can feel underneath a thin layer of granulation at the central aspect of the wound. There is a localized inflammation and erythema consistent with soft tissue infection. No underlying fluctuance or crepitation. The wound beds have mostly red granulation with some areas of pale slough. She has extensive lymphedema to both legs, relatively unchanged. No pallor/cyanosis, or signs of acute vascular embarrassment. I cannot palpate her pedal pulses due to the advanced lymphedema. She has had prior arterial Doppler studies, which showed patent arterial vessels to both feet with no signs of stenosis. MRI during last hospitalization was negative for osteomyelitis. IMPRESSION: Deep tissue infection with likely osteomyelitis, right calcaneus. PLAN: Based on radiographic and clinical findings, [place] [address] CONSULTATION Name: JENNI ASHTON Chase Room: [address] IN [facility]#: [id number] Admission: 06/21/20 Attend Phys: Saravanan Joshi Discharge: Date of : 46 Report #: [id number] the right calcaneus. I will schedule her for surgery on Saturday and plan resection of the inferior calcaneus with bone and soft tissue cultures and pathology. <ELECTRONICALLY SIGNED> By: Carlitos Fagan DPM 06/29/20 1226 1651 2037Carlitos Fagan DPM /nt
--- NOTE | 2020-06-29 12:26 | CON ---
[address] [address] CONSULTATION Name: JENNI ASHTON Room: [address] IN [place]ip.#: [id number] Admission: 06/21/20 Attend Phys: Saravanan Joshi Discharge: Date of : 46 Report #: [id number] THIS REPORT FOR: //name// cc: Doug Miranda MD, Stephen R. MD ~ THIS REPORT FOR: //name// CC: Doug Bennett DATE OF SERVICE: 06/26/2020 CHIEF COMPLAINT: Postoperative day 2 for partial calcanectomy of right foot for osteomyelitis. She has remained afebrile with good appetite and low-grade foot pain. She has remained in nonweightbearing except for weightbearing for transfers to the commode. Surgical bone tissues growing Morganella morganii and Enterobacter cloacae with pending sensitivities. The anaerobic culture is pending. Her preoperative swab also included Proteus mirabilis. Blood cultures are negative x 2. She is on parenteral Zosyn and oral linezolid with good tolerance. Surgical pathology is pending. A skilled therapy consult was placed by Dr. Beck. LABORATORY DATA: WBC 5.6, RBC 2.39, hemoglobin 7.2, hematocrit 21.7, platelets 317. BUN 25, creatinine 1.2, glucose 205. PHYSICAL EXAMINATION: Temperature 98.6, pulse 77, respiration 17, blood pressure 127/63. The right postoperative wound is stable with no active bleeding. There is sanguinous drainage on her bandage. There is no pallor/cyanosis, inflammation or cellulitis to the xiomara-wound area. No signs of acute vascular embarrassment. The inflammation to the right leg is decreased with about baseline edema from chronic lymphedema. No lesions noted to the left lower extremity. IMPRESSION: Osteomyelitis with deep tissue infection, type 2 diabetes mellitus, lymphedema. PLAN: I debrided the wound with a curette to remove subcutaneous tissue and slough from the wound bed. Scant bleeding was stopped with pressure. The wound was cleansed and dressed with Aquacel Ag and covered with ABDs, Kerlix, Coban, and Jesus bandage. The patient instructed to remain nonweightbearing, although I will allow her to place some weight to the forefoot for transfers only. <ELECTRONICALLY SIGNED> By: Carlitos Fagan DPM 06/29/20 1226 1351 1542Ddorita Fagan DPM /nt
--- NOTE | 2020-06-29 12:26 | OP ---
[facility] [address] [place] [address] OPERATIVE REPORT Name: JENNI ASHTON Room: [address] IN M.R.#: [id number] Admission: 06/21/20 Attend Phys: Saravanan Joshi Discharge: Date of : 46 Report #: [id number] THIS REPORT FOR: //name// cc: Doug Miranda MD, Stephen R. MD ~ CC: Doug Bennett DATE OF SERVICE: 06/24/2020 SURGEON: Carlitos Fagan DPM PREOPERATIVE DIAGNOSIS: Osteomyelitis, right calcaneus with nonhealing ulceration. POSTOPERATIVE DIAGNOSIS: Osteomyelitis, right calcaneus with nonhealing ulceration. PROCEDURES: 1. Partial calcanectomy, right foot. 2. Incision and drainage, right foot. ANESTHESIA: General LMA. INJECTABLES: 30 mL of 0.5% Marcaine plain. HEMOSTASIS: Right ankle tourniquet at 300 mmHg. SPECIMENS: Right calcaneus. CULTURES: 1. Bone, right calcaneus, aerobic/anaerobic. 2. Soft tissue, right foot, aerobic/anaerobic. ESTIMATED BLOOD LOSS: Roughly 10 mL. COMPLICATIONS: None. DESCRIPTION OF PROCEDURE: The patient was brought to the OR and kept in a surgical bed supine. General anesthesia was administered and a local anesthetic block was given to the right hindfoot. A well-padded right ankle pneumatic tourniquet was placed and the extremity was prepped and draped aseptically. The foot was exsanguinated with inflation of the tourniquet. I used #10 scalpel to excise the plantar fascia from the wound and this was sent for soft tissue culture. I circumscribed the existing ulcer to freshen the edges and I extended an incision distally along the long axis of the foot [place] [address] OPERATIVE REPORT Name: JENNI ASHTON [place] Room: [address] IN [facility]#: [id number] Admission: 06/21/20 Attend Phys: Saravanan Joshi Discharge: Date of : 46 Report #: [id number] to the calcaneus. The inferior calcaneus was soft, discolored and necrotic. I used an osteotome to plane the inferior surface of the calcaneus down to solid hard bone. I submitted this portion of soft bone for culture, and the remaining excised bone for surgical pathology. Once I performed adequate bone resection, I debrided the surrounding soft tissues extensively and used electrocautery for hemostasis. The wound was flushed with sterile saline and dried. The wound was then packed with Aquacel Ag, fluffs and the foot was dressed with ABDs, Kerlix and Jesus bandage. The tourniquet was deflated and the patient left the OR with no pain or complications noted. <ELECTRONICALLY SIGNED> By: Carlitos Fagan DPM 06/29/20 1226 0829 0909Carlitos Fagan DPM /kortney
--- NOTE | 2020-06-29 13:07 | PATH ---
[address] [address] PATHOLOGY RPT PROCEDURE Name: JENNI ASHTON Room: [address] IN ..#: [id number] Admission: 06/21/20 Date of : 46 Discharge: Report #: [id number] Path Case #: [id number] [facility] Accession Number: [id number] . 01 Material submitted: . heel - BONE PATH RIGHT CALCANEUS. Modifiers: right . 01 Clinical history: . SEPSIS, UNSPECIFIED ORGANISM, CELLULITIS OF LEFT LOWER LIMB, OSTEOMYELITIS RIGHT CALCANEUS, DEBRIDEMENT WITH IRRIGATION . 02 Diagnosis: Right calcaneus bone: - Benign cancellous bone with extensive osteomyelitis. (ALMA ROSA/db; 06/29/2020) LBQ 06/29/2020 1028 Local . 02 Electronically signed: . Ravin Schmitt MD, Pathologist NPI- [id number] . 01 Gross description: . The specimen is received in formalin, labeled "Jose, Jenni, right calcaneus bone" and consists of a segment of henry-brown bone measuring 2.2 x 1.4 x 1.2 cm. Sectioning reveals brown cut surfaces and is entirely submitted in A1-A2, for decalcification. (SDY; 06/27/2020) SYU/SYU 06/29/2020 1028 Local . 02 Pathologist provided ICD-10: M86.171 . 02 CPT . 744033, 474222 Specimen Comment: A courtesy copy of this report has been sent to [phone] Specimen Comment: [phone], Specimen Comment: Report sent to ,DR KEE / DR HARVEY Performed at: 01 [facility] [address], [place], [place] [id number] MD Gerry Dickson MD Phone: [phone] Performed at: 02 [facility] [address], [place], [place] [id number] MD Ravin Schmitt MD Phone: [phone]
[2020-06-29 17:00] VITALS: BP 118/43
[2020-06-29 19:50] VITALS: BP 144/58
[2020-06-30 03:50] LABS: HEMATOCRIT 22.9 % (37.0-47.0); HEMOGLOBIN 7.6 gm/dL (12.0-15.0); MCH 30.4 pg (26.0-34.0); MCV 92.4 fL (80.0-100.0); MPV 6.3 fl. (7.2-11.1); RBC 2.48 mil/uL (4.20-5.00); RDW-CV 18.9 % (10.5-14.5)
[2020-06-30 04:05] LABS: CALCIUM 8.8 mg/dL (8.5-10.1); CREATININE 1.1 mg/dL (0.6-1.3); POTASSIUM 3.9 mmol/L (3.5-5.1)
[2020-06-30] MEDS ORDERED: FERREX 150 PLU1 EAC1 PO (08:08)
[2020-06-30] MEDS ORDERED: MIRALAX17 GM PO (08:08)
[2020-06-30] MEDS ORDERED: LINEZOLID600 MG PO (08:08)
[2020-06-30] MEDS ORDERED: COLACE 100 MG100 MG PO (08:08)
[2020-06-30] MEDS ORDERED: PROTONIX40 M2 PO (08:08)
[2020-06-30] MEDS ORDERED: ROCEPHIN 11 GM/1001 IV (08:08)
[2020-06-30 08:13] VITALS: BP 124/47
== END 2020-06-30 14:30 | DRG 854 ==
LOC: M.ERS 19:22 → M.3W 21:50 → M.TBA-ER 21:50 → M.3W 23:56
PROVIDERS: Emergency Medicine; Internal Medicine; ADMIT Internal Medicine; ATTEND Internal Medicine
PROC: 0QBL0ZZ Excision of Right Tarsal, Open Approach (ICD-10-PCS; principal; 2020-06-24)
PROC: 05HY33Z Insertion of Infusion Device into Upper Vein, Percutaneous Approach (ICD-10-PCS; 2020-06-30)
DX: A41.9 Sepsis, unspecified organism (principal); L03.116 Cellulitis of left lower limb; L97.419 Non-pressure chronic ulcer of right heel and midfoot with unspecified severity; E44.0 Moderate protein-calorie malnutrition; M86.8X7 Other osteomyelitis, ankle and foot; Z68.43 Body mass index [BMI] 50.0-59.9, adult; E11.621 Type 2 diabetes mellitus with foot ulcer; E78.00 Pure hypercholesterolemia, unspecified; E66.01 Morbid (severe) obesity due to excess calories; N18.30 Chronic kidney disease, stage 3 unspecified; M10.9 Gout, unspecified; E03.9 Hypothyroidism, unspecified; E11.69 Type 2 diabetes mellitus with other specified complication; G47.33 Obstructive sleep apnea (adult) (pediatric); G89.29 Other chronic pain; M54.9 Dorsalgia, unspecified; K43.9 Ventral hernia without obstruction or gangrene; H35.30 Unspecified macular degeneration; K45.8 Other specified abdominal hernia without obstruction or gangrene; E11.42 Type 2 diabetes mellitus with diabetic polyneuropathy; D64.9 Anemia, unspecified; Z20.828 Contact with and (suspected) exposure to other viral communicable diseases; E11.22 Type 2 diabetes mellitus with diabetic chronic kidney disease; E88.09 Other disorders of plasma-protein metabolism, not elsewhere classified; Z85.3 Personal history of malignant neoplasm of breast; Z88.2 Allergy status to sulfonamides; Z88.1 Allergy status to other antibiotic agents; Z91.041 Radiographic dye allergy status; Z87.891 Personal history of nicotine dependence; Z79.82 Long term (current) use of aspirin; Z79.899 Other long term (current) drug therapy

== ENCOUNTER 2020-06-30 12:34 | Inpatient (IN) | payer MEDICARE, OTHER ==
[~2020-06-30] VITALS: Ht 167.6 cm; Wt 143.5 kg
[~2020-06-30 12:34] MED LIST changes: +COLACE 100 MG100 MG PO; +FERREX 150 PLU1 EAC1 PO; +LINEZOLID600 MG PO; +MIRALAX17 GM PO; +PROTONIX40 M2 PO; +ROCEPHIN 11 GM/1001 IV
[2020-06-30 20:09] VITALS: BP 139/61
[2020-07-01 08:45] VITALS: BP 126/48
[2020-07-01 14:24] LABS: HEMATOCRIT 24.8 % (37.0-47.0); HEMOGLOBIN 8.3 gm/dL (12.0-15.0); MCH 30.8 pg (26.0-34.0); MCHC 33.2 g/dL (28.0-37.0); MCV 92.6 fL (80.0-100.0); MPV 6.5 fl. (7.2-11.1); RBC 2.68 mil/uL (4.20-5.00); RDW-CV 19.1 % (10.5-14.5)
[2020-07-01 14:29] LABS: CALCIUM 8.6 mg/dL (8.5-10.1); CREATININE 1.2 mg/dL (0.6-1.3); POTASSIUM 3.6 mmol/L (3.5-5.1)
[2020-07-01 20:12] VITALS: BP 118/51
[2020-07-02 08:00] VITALS: BP 98/44
[2020-07-02 14:48] LABS: ALBUMIN 2.7 g/dL (3.4-5.0); CALCIUM 8.6 mg/dL (8.5-10.1); CREATININE 1.4 mg/dL (0.6-1.3); POTASSIUM 3.9 mmol/L (3.5-5.1); TOTAL BILIRUBIN 0.3 mg/dL (<0.1-1.0); TOTAL PROTEIN 6.9 g/dL (6.4-8.2)
[2020-07-02 20:10] VITALS: BP 108/33
[2020-07-02 20:50] VITALS: BP 111/44
[2020-07-03 07:12] LABS: ALBUMIN 2.3 g/dL (3.4-5.0); CALCIUM 8.3 mg/dL (8.5-10.1); CREATININE 1.1 mg/dL (0.6-1.3); POTASSIUM 3.7 mmol/L (3.5-5.1); TOTAL BILIRUBIN 0.4 mg/dL (<0.1-1.0)
[2020-07-03 08:00] VITALS: BP 104/57
[2020-07-03 19:48] VITALS: BP 134/53
[2020-07-04 05:00] LABS: HEMATOCRIT 22.2 % (37.0-47.0); HEMOGLOBIN 7.3 gm/dL (12.0-15.0); MCV 92.5 fL (80.0-100.0); WBC 4.9 thou/uL (4.0-11.0)
[2020-07-04 05:04] LABS: ABSOLUTE EOSINOPHILS 0.2 thou/uL (0.0-0.7); ABSOLUTE LYMPHOCYTES 1.7 thou/uL (0.8-5.3); ABSOLUTE MONOCYTES 0.3 thou/uL (0.0-1.2); ABSOLUTE NEUTROPHILS 2.6 thou/uL (1.6-8.1); BASOPHILS 0.4 %; EOSINOPHILS 4.1 %; LYMPHOCYTES 35.5 %; MCH 30.5 pg (26.0-34.0); MONOCYTES 5.5 %; NUCLEATED RBCS 0 /100WBC; POLYS 54.5 %; RDW-CV 19.5 % (10.5-14.5)
[2020-07-04 05:29] LABS: ALBUMIN 2.3 g/dL (3.4-5.0); CALCIUM 8.3 mg/dL (8.5-10.1); MAGNESIUM 1.7 mg/dL (1.8-2.4); POTASSIUM 3.7 mmol/L (3.5-5.1); TOTAL BILIRUBIN 0.3 mg/dL (<0.1-1.0); TOTAL PROTEIN 5.9 g/dL (6.4-8.2)
[2020-07-04 05:37] LABS: PLATELET COUNT* 185 thou/uL (150-400)
[2020-07-04 08:00] VITALS: BP 134/60
--- NOTE | 2020-07-04 09:36 | EKG ---
[place] [address] ELECTROCARDIOGRAM REPORT Name: JENNI ASHTON Room: [address] ADM IN ..#: [id number] Admission: 06/30/20 Attend Phys: Artemio Pina MD Discharge: Date of : 46 Date of Service: 07/03/20 1243 Report #: [id number] THIS REPORT FOR: //name// [facility] Test Date: 2020-07-03 Test Time: 12:43:23 Pat Name: JENNI ASHTON Department: Room: [address] Gender: F Manager Pest: KLARISSA : 1950 Requested By: Isaac Bennett Order Number: [id number] Meghann MD: Jose Alfredo Luong Measurements Intervals [place] Rate: 105 P: 42 MS: 173 QRS: -44 QRSD: 137 T: 64 QT: 370 QTc: 490 Interpretive Statements Sinus tachycardia RBBB and LAFB Compared to ECG 06/24/2020 08:38:08 Sinus rhythm no longer present Electronically Signed On 07-04-2020 9:35:57 CDT by Jose Alfredo Luong [email or web address] <ELECTRONICALLY SIGNED> By: Jose Alfredo Luong MD, FACC 07/04/20 0935 1243 1243 Jose Alfredo Luong MD, [facility] /EPI
--- NOTE | 2020-07-04 13:44 | EKG ---
[place] [address] ELECTROCARDIOGRAM REPORT Name: JENNI ASHTON Room: [address] ADM IN .R.#: [id number] Admission: 06/30/20 Attend Phys: Artemio Pina MD Discharge: Date of : 46 Date of Service: 07/03/20 1244 Report #: [id number] THIS REPORT FOR: //name// [facility] Test Date: 2020-07-03 Test Time: 12:44:15 Pat Name: JENNI ASHTON Department: Room: [address] Gender: F Mine Technician: KLARISSA : 1950 Requested By: Artemio Pina Order Number: [id number] Reading MD: Jose Alfredo Luong Measurements Intervals [place] Rate: 106 P: 2 PA: 165 QRS: -43 QRSD: 136 T: 57 QT: 364 QTc: 484 Interpretive Statements Sinus tachycardia RBBB and LAFB Compared to ECG 07/03/2020 12:43:23 No significant changes Electronically Signed On 07-04-2020 13:44:45 CDT by Jose Alfredo Luong [email or web address] <ELECTRONICALLY SIGNED> By: Jose Alfredo Luong MD, FACC 07/04/20 1344 1244 1244 Jose Alfredo Luong MD, [facility] /EPI
--- NOTE | 2020-07-04 13:46 | EKG ---
[place] [address] ELECTROCARDIOGRAM REPORT Name: JENNI ASHTON Room: [address] ADM IN ..#: [id number] Admission: 06/30/20 Attend Phys: Artemio Pina MD Discharge: Date of : 46 Date of Service: 07/03/20 2240 Report #: [id number] THIS REPORT FOR: //name// [facility] Test Date: 2020-07-03 Test Time: 22:40:20 Pat Name: JENNI ASHTON Department: Room: [address] Gender: F Cloth Wire Weaver: REJI : 1950 Requested By: Artemio Pina Order Number: [id number] Meghann MD: Jose Alfredo Luong Measurements Intervals [place] Rate: 92 P: 82 NV: 120 QRS: 70 QRSD: 83 T: 83 QT: 341 QTc: 422 Interpretive Statements Sinus rhythm Left atrial enlargement Anterior infarct, old Nonspecific T abnormalities, lateral leads Artifact in lead(s) II,III,aVR,aVL,aVF Compared to ECG 07/03/2020 12:44:15 Atrial abnormality now present Myocardial infarct finding now present Sinus tachycardia no longer present Left anterior fascicular block no longer present Right bundle-branch block no longer present Electronically Signed On 07-04-2020 13:46:33 CDT by Jose Alfredo Luong [email or web address] <ELECTRONICALLY SIGNED> By: Jose Alfredo Luong MD, [facility] 07/04/20 1346 39 39 Jose Alfredo Luong MD, [facility] /EPI
--- NOTE | 2020-07-04 13:48 | EKG ---
[place] [address] ELECTROCARDIOGRAM REPORT Name: JENNI ASHTON Room: [address] ADM IN ..#: [id number] Admission: 06/30/20 Attend Phys: Artmeio Pina MD Discharge: Date of : 46 Date of Service: 07/04/20 1245 Report #: [id number] THIS REPORT FOR: //name// [facility] Test Date: 2020-07-04 Test Time: 12:45:57 Pat Name: JENNI ASHTON Department: Room: [address] Gender: F Acoustic Intelligence Specialist: : 1950 Requested By: Isaac Bennett Order Number: [id number] Meghann MD: Jose Alfredo Luong Measurements Intervals [place] Rate: 90 P: 16 AR: 170 QRS: -27 QRSD: 145 T: 49 QT: 400 QTc: 490 Interpretive Statements Sinus rhythm Right bundle branch block Compared to ECG 07/03/2020 22:40:20 Right bundle-branch block now present Atrial abnormality no longer present Myocardial infarct finding no longer present Electronically Signed On 07-04-2020 13:48:40 CDT by Jose Alfredo Luong [email or web address] <ELECTRONICALLY SIGNED> By: Jose Alfredo Luong MD, FAC 07/04/20 1348 1245 1245 Jose Alfredo Luong MD, FAC /EPI
[2020-07-04 19:00] VITALS: BP 112/59
[2020-07-05 09:00] VITALS: BP 104/50
[2020-07-05 19:00] VITALS: BP 106/81
[2020-07-06 07:00] VITALS: BP 128/51
--- NOTE | 2020-07-06 10:21 | EKG ---
[place] [address] ELECTROCARDIOGRAM REPORT Name: JENNI ASHTON Room: [address] ADM IN ..#: [id number] Admission: 06/30/20 Attend Phys: Artemio Pina MD Discharge: Date of : 46 Date of Service: 07/06/20 0842 Report #: [id number] THIS REPORT FOR: //name// [facility] Test Date: 2020-07-06 Test Time: 08:42:40 Pat Name: JENNI ASHTON Department: Room: [address] Gender: F Through Freight Engineer: : 1950 Requested By: Isaac Bennett Order Number: [id number] Meghann MD: Jose Alfredo Luong Measurements Intervals [place] Rate: 85 P: -28 [place]: 168 QRS: -41 QRSD: 139 T: 63 QT: 412 QTc: 490 Interpretive Statements Sinus rhythm RBBB and LAFB Compared to ECG 07/04/2020 12:45:57 no change Electronically Signed On 07-06-2020 10:21:19 CDT by Jose Alfredo Luong [email or web address] <ELECTRONICALLY SIGNED> By: Jose Alfredo Luong MD, [facility] 07/06/20 1021 0842 0842 Jose Alfredo Luong MD, [facility] /EPI
--- NOTE | 2020-07-06 12:41 | CON ---
[address] [address] CONSULTATION Name: JENNI ASHTON Room: [address] ADM IN [facility].#: [id number] Admission: 06/30/20 Attend Phys: Artemio Pina MD Discharge: Date of : 46 Report #: [id number] THIS REPORT FOR: //name// cc: Doug Miranda MD, Stephen R. MD ~ THIS REPORT FOR: //name// CC: Artemio Miranda DATE OF SERVICE: 07/01/2020 Follow up for a right partial calcanectomy for osteomyelitis. She is on Zyvox and parenteral ceftriaxone. She has had some nausea, remained afebrile. She has remained nonweightbearing to the foot with no active wound bleeding. LABORATORY DATA: WBC 7.0, RBC 2.68, hemoglobin 8.3, hematocrit 24.7, platelets 265. BUN 22, creatinine 1.2, glucose 130. PHYSICAL EXAMINATION: Temperature 98.2, pulse 62, respirations 20, blood pressure 126/48. The wound has no active bleeding with exposed bone at the inferior calcaneus resection site. The bone appears normal with no visible lysis or necrosis. The surrounding tissue has some granulation with a mixture of fibrous slough. No mata erythema or cellulitis. The foot is warm with good color and temperature, and no signs of acute vascular changes. IMPRESSION: Osteomyelitis, status post surgical resection. PLAN: The wound was cleansed and redressed with Aquacel Ag, ABDs, Kerlix and Jesus bandage. The patient to remain strictly nonweightbearing. <ELECTRONICALLY SIGNED> By: Carlitos Fagan DPM 07/06/20 1241 1659 1711Ddorita Fagan DPM /nt
[2020-07-06 20:09] VITALS: BP 123/52
[2020-07-07 08:14] VITALS: BP 126/56
[2020-07-07 20:17] VITALS: BP 122/54
[2020-07-08 08:00] VITALS: BP 139/50
[2020-07-08 20:00] VITALS: BP 125/49
[2020-07-09 09:00] VITALS: BP 116/44
[2020-07-09 19:00] VITALS: BP 117/49
[2020-07-10 08:00] VITALS: BP 136/56
[2020-07-10 19:31] VITALS: BP 108/50
[2020-07-11 07:00] VITALS: BP 94/49
[2020-07-11 19:00] VITALS: BP 141/46
[2020-07-12 04:17] LABS: HEMATOCRIT 20.1 % (37.0-47.0); MCH 30.4 pg (26.0-34.0); MCV 92.2 fL (80.0-100.0); RBC 2.18 mil/uL (4.20-5.00); RDW-CV 20.2 % (10.5-14.5); WBC 4.3 thou/uL (4.0-11.0)
[2020-07-12 04:33] LABS: HEMOGLOBIN 6.6 gm/dL (12.0-15.0)
[2020-07-12 04:50] LABS: ALBUMIN 2.4 g/dL (3.4-5.0); CALCIUM 8.4 mg/dL (8.5-10.1); CREATININE 1.1 mg/dL (0.6-1.3); MAGNESIUM 1.7 mg/dL (1.8-2.4); POTASSIUM 3.7 mmol/L (3.5-5.1); TOTAL BILIRUBIN 0.4 mg/dL (<0.1-1.0); TOTAL PROTEIN 5.7 g/dL (6.4-8.2)
[2020-07-12 07:30] VITALS: BP 125/53
[2020-07-12 08:14] VITALS: BP 110/45; BP 114/43; BP 116/48; BP 121/39; BP 143/68
[2020-07-12 19:00] VITALS: BP 132/64
[2020-07-13 07:30] VITALS: BP 123/44
[2020-07-13 12:35] LABS: HEMATOCRIT 23.1 % (37.0-47.0); HEMOGLOBIN 7.6 gm/dL (12.0-15.0); MCH 30.1 pg (26.0-34.0); MCHC 32.8 g/dL (28.0-37.0); MCV 91.8 fL (80.0-100.0); MPV 7.7 fl. (7.2-11.1); RBC 2.51 mil/uL (4.20-5.00); RDW-CV 19.6 % (10.5-14.5); WBC 4.9 thou/uL (4.0-11.0)
[2020-07-13 19:00] VITALS: BP 117/47
[2020-07-14 08:00] VITALS: BP 129/54
[2020-07-14 15:14] LABS: ABSOLUTE EOSINOPHILS 0.5 thou/uL (0.0-0.7); ABSOLUTE MONOCYTES 0.3 thou/uL (0.0-1.2); ABSOLUTE NEUTROPHILS 2.2 thou/uL (1.6-8.1); BASOPHILS 0.7 %; EOSINOPHILS 9.7 %; HEMATOCRIT 23.9 % (37.0-47.0); HEMOGLOBIN 7.8 gm/dL (12.0-15.0); MCH 30.1 pg (26.0-34.0); MCHC 32.6 g/dL (28.0-37.0); MCV 92.1 fL (80.0-100.0); MONOCYTES 5.4 %; MPV 7.5 fl. (7.2-11.1); NUCLEATED RBCS 0 /100WBC; PLATELET COUNT* 103 thou/uL (150-400); POLYS 43.2 %; RDW-CV 19.6 % (10.5-14.5)
[2020-07-14 15:28] LABS: ALBUMIN 2.7 g/dL (3.4-5.0); CREATININE 1.2 mg/dL (0.6-1.3); TOTAL BILIRUBIN 0.4 mg/dL (<0.1-1.0); TOTAL PROTEIN 6.4 g/dL (6.4-8.2)
[2020-07-14 20:00] VITALS: BP 106/39
[2020-07-15 09:00] VITALS: BP 117/52
[2020-07-15 20:18] VITALS: BP 113/40
[2020-07-16 03:51] LABS: HEMATOCRIT 21.7 % (37.0-47.0); HEMOGLOBIN 7.2 gm/dL (12.0-15.0); MCH 30.1 pg (26.0-34.0); MCHC 33.1 g/dL (28.0-37.0); MPV 7.3 fl. (7.2-11.1); RBC 2.38 mil/uL (4.20-5.00); RDW-CV 19.8 % (10.5-14.5); WBC 4.3 thou/uL (4.0-11.0)
[2020-07-16 03:59] LABS: CALCIUM 8.7 mg/dL (8.5-10.1); MAGNESIUM 1.7 mg/dL (1.8-2.4)
[2020-07-16 08:42] VITALS: BP 120/54
[2020-07-16 16:27] VITALS: BP 120/54
== END 2020-07-16 15:00 | DRG 638 ==
LOC: M.REH 12:34
PROVIDERS: Family Medicine; Internal Medicine; ADMIT Physical Medicine & Rehabilitation; ATTEND Physical Medicine & Rehabilitation
PROC: 30233N1 Transfusion of Nonautologous Red Blood Cells into Peripheral Vein, Percutaneous Approach (ICD-10-PCS; principal; 2020-07-12)
DX: E11.69 Type 2 diabetes mellitus with other specified complication (principal); M86.8X6 Other osteomyelitis, lower leg; L03.116 Cellulitis of left lower limb; J98.11 Atelectasis; Z68.43 Body mass index [BMI] 50.0-59.9, adult; E11.42 Type 2 diabetes mellitus with diabetic polyneuropathy; E78.5 Hyperlipidemia, unspecified; E66.01 Morbid (severe) obesity due to excess calories; E03.9 Hypothyroidism, unspecified; G47.33 Obstructive sleep apnea (adult) (pediatric); M10.9 Gout, unspecified; N18.30 Chronic kidney disease, stage 3 unspecified; E11.65 Type 2 diabetes mellitus with hyperglycemia; E11.22 Type 2 diabetes mellitus with diabetic chronic kidney disease; E11.621 Type 2 diabetes mellitus with foot ulcer; E83.42 Hypomagnesemia; G89.29 Other chronic pain; M54.9 Dorsalgia, unspecified; L97.529 Non-pressure chronic ulcer of other part of left foot with unspecified severity; Z85.3 Personal history of malignant neoplasm of breast; Z88.0 Allergy status to penicillin; Z88.2 Allergy status to sulfonamides; Z88.8 Allergy status to other drugs, medicaments and biological substances; Z88.1 Allergy status to other antibiotic agents; Z91.041 Radiographic dye allergy status

== ENCOUNTER 2020-07-20 11:04 | Emergency (ER) | payer MEDICARE, OTHER ==
[~2020-07-20] VITALS: Ht 167.6 cm; Wt 140.2 kg
[~2020-07-20 11:04] MED LIST changes: -AMBIEN5 MG PO; -BISACODYL10 MG RECTAL; -FLONASE 0.05%50 MCG NASAL; -JUVEN PACKET1 EAC1 PO; -LOPERAMIDE 2 MG2 M1 PO; -LOPERAMIDE2 MG PO; -LOVENOX40 MG/0.4 SUBQ; -MILK OF MA400 MG/5 M PO; -MIRALAX119 GM PO; -MYLANTA TONIGH355 ML PO; -SUPER THERAVIT1 EACH PO
[2020-07-20] MEDS ORDERED: LOVENOX40 MG/0.4 SUBQ (11:16)
[2020-07-20] MEDS ORDERED: LOPERAMIDE 2 MG2 M1 PO (11:17)
[2020-07-20] MEDS ORDERED: LOPERAMIDE2 MG PO (11:17)
[2020-07-20] MEDS ORDERED: JUVEN PACKET1 EAC1 PO (11:26)
[2020-07-20] MEDS ORDERED: SUPER THERAVIT1 EACH PO (11:26)
[2020-07-20] MEDS ORDERED: FLONASE 0.05%50 MCG NASAL (11:27)
[2020-07-20] MEDS ORDERED: BISACODYL10 MG RECTAL (11:29)
[2020-07-20] MEDS ORDERED: MILK OF MA400 MG/5 M PO (11:30)
[2020-07-20] MEDS ORDERED: MIRALAX119 GM PO (11:31)
[2020-07-20] MEDS ORDERED: AMBIEN5 MG PO (11:33)
[2020-07-20] MEDS ORDERED: MYLANTA TONIGH355 ML PO (11:33)
[2020-07-20 11:36] LABS: ABSOLUTE EOSINOPHILS 0.3 thou/uL (0.0-0.7); ABSOLUTE LYMPHOCYTES 1.7 thou/uL (0.8-5.3); ABSOLUTE MONOCYTES 0.3 thou/uL (0.0-1.2); ABSOLUTE NEUTROPHILS 2.4 thou/uL (1.6-8.1); BASOPHILS 0.7 %; EOSINOPHILS 7.2 %; HEMATOCRIT 21.8 % (37.0-47.0); HEMOGLOBIN 7.1 gm/dL (12.0-15.0); LYMPHOCYTES 35.7 %; MCH 29.7 pg (26.0-34.0); MCHC 32.5 g/dL (28.0-37.0); MCV 91.2 fL (80.0-100.0); MONOCYTES 5.9 %; MPV 7.2 fl. (7.2-11.1); NUCLEATED RBCS 0 /100WBC; PLATELET COUNT* 101 thou/uL (150-400); POLYS 50.5 %; RBC 2.39 mil/uL (4.20-5.00); WBC 4.7 thou/uL (4.0-11.0)
[2020-07-20 11:56] LABS: ALBUMIN 2.6 g/dL (3.4-5.0); CALCIUM 8.7 mg/dL (8.5-10.1); CREATININE 1.1 mg/dL (0.6-1.3); POTASSIUM 3.6 mmol/L (3.5-5.1); TOTAL BILIRUBIN 0.3 mg/dL (<0.1-1.0); TOTAL PROTEIN 6.5 g/dL (6.4-8.2)
[2020-07-20 12:47] VITALS: BP 123/46
--- NOTE | 2020-07-20 14:27 | EKG ---
[place] [address] ELECTROCARDIOGRAM REPORT Name: JENNI ASHTON Room: [facility]#: [id number] Admission: 07/20/20 Attend Phys: Discharge: 07/20/20 Date of : 46 Date of Service: 07/20/20 1115 Report #: [id number] THIS REPORT FOR: //name// [facility] ED Test Date: 2020-07-20 Test Time: 11:15:30 Pat Name: JENNI ASHTON Department: Room: Gender: Purchase Price Analyst: : 1950 Requested By: Ross Calix Order Number: [id number] MD: Jose Alfredo Luong Measurements Intervals [place] Rate: 90 P: 26 [place]: 160 QRS: -18 QRSD: 138 T: 40 QT: 410 QTc: 502 Interpretive Statements Sinus rhythm Right bundle branch block Baseline wander in lead(s) II,III,aVF Compared to ECG 07/06/2020 08:42:40 no change Electronically Signed On 07-20-2020 14:27:45 CDT by Jose Alfredo Luong [email or web address] <ELECTRONICALLY SIGNED> By: Jose Alfredo Luong MD, FACC 07/20/20 1427 1115 1115 Jose Alfredo Luong MD, [facility] /EPI
== END 2020-07-20 12:48 | disposition home or self-care (01) ==
LOC: M.ERS 11:04
PROVIDERS: Emergency Medicine Emergency Medical Services
DX: R19.7 Diarrhea, unspecified (principal); E11.9 Type 2 diabetes mellitus without complications; G47.33 Obstructive sleep apnea (adult) (pediatric); E66.01 Morbid (severe) obesity due to excess calories; Z91.041 Radiographic dye allergy status; Z88.2 Allergy status to sulfonamides; Z88.1 Allergy status to other antibiotic agents; Z87.891 Personal history of nicotine dependence; Z68.42 Body mass index [BMI] 45.0-49.9, adult

== ENCOUNTER → 2020-07-20 | Outpatient (CLI) | payer MEDICARE, OTHER ==
[~2020-07-20] MED LIST changes: +AMBIEN5 MG PO; +BISACODYL10 MG RECTAL; +FLONASE 0.05%50 MCG NASAL; +JUVEN PACKET1 EAC1 PO; +LOPERAMIDE 2 MG2 M1 PO; +LOPERAMIDE2 MG PO; +LOVENOX40 MG/0.4 SUBQ; +MILK OF MA400 MG/5 M PO; +MIRALAX119 GM PO; +MYLANTA TONIGH355 ML PO; +SUPER THERAVIT1 EACH PO
== END ==
LOC: M.WC 10:55
PROVIDERS: ATTEND Podiatrist Foot & Ankle Surgery
DX: E11.621 Type 2 diabetes mellitus with foot ulcer (principal); L97.416 Non-pressure chronic ulcer of right heel and midfoot with bone involvement without evidence of necrosis; L97.511 Non-pressure chronic ulcer of other part of right foot limited to breakdown of skin; L03.115 Cellulitis of right lower limb; E11.40 Type 2 diabetes mellitus with diabetic neuropathy, unspecified; E66.01 Morbid (severe) obesity due to excess calories; E78.00 Pure hypercholesterolemia, unspecified; E03.9 Hypothyroidism, unspecified; G47.30 Sleep apnea, unspecified; I89.0 Lymphedema, not elsewhere classified; Z85.828 Personal history of other malignant neoplasm of skin; Z85.3 Personal history of malignant neoplasm of breast; Z68.42 Body mass index [BMI] 45.0-49.9, adult; Z87.891 Personal history of nicotine dependence

== ENCOUNTER 2020-07-23 13:19 | Inpatient (IN) | payer MEDICARE, OTHER ==
[~2020-07-23] VITALS: Ht 167.6 cm; Wt 142.2 kg
[~2020-07-23 13:19] MED LIST changes: +AMBIEN5 MG PO; +BISACODYL10 MG RECTAL; +FLONASE 0.05%50 MCG NASAL; +JUVEN PACKET1 EAC1 PO; +LOPERAMIDE 2 MG2 M1 PO; +LOPERAMIDE2 MG PO; +LOVENOX40 MG/0.4 SUBQ; +MILK OF MA400 MG/5 M PO; +MIRALAX119 GM PO; +MYLANTA TONIGH355 ML PO; +SUPER THERAVIT1 EACH PO
[2020-07-23 13:21] VITALS: BP 120/42
[2020-07-23 14:12] LABS: ABSOLUTE EOSINOPHILS 0.4 thou/uL (0.0-0.7); ABSOLUTE LYMPHOCYTES 1.7 thou/uL (0.8-5.3); ABSOLUTE MONOCYTES 0.4 thou/uL (0.0-1.2); ABSOLUTE NEUTROPHILS 2.1 thou/uL (1.6-8.1); BASOPHILS 0.7 %; EOSINOPHILS 8.3 %; MCH 30.4 pg (26.0-34.0); MCHC 33.7 g/dL (28.0-37.0); MCV 90.1 fL (80.0-100.0); MPV 7.3 fl. (7.2-11.1); NUCLEATED RBCS 0 /100WBC; PLATELET COUNT* 116 thou/uL (150-400); RBC 2.16 mil/uL (4.20-5.00); RDW-CV 20.1 % (10.5-14.5); WBC 4.7 thou/uL (4.0-11.0)
[2020-07-23 14:21] LABS: HEMOGLOBIN 6.6 gm/dL (12.0-15.0)
[2020-07-23 14:22] LABS: HEMATOCRIT 19.5 % (37.0-47.0)
[2020-07-23 14:31] LABS: CALCIUM 8.7 mg/dL (8.5-10.1); POTASSIUM 3.4 mmol/L (3.5-5.1)
[2020-07-23 14:35] LABS: ALBUMIN 2.7 g/dL (3.4-5.0); TOTAL BILIRUBIN 0.4 mg/dL (<0.1-1.0); TOTAL PROTEIN 6.6 g/dL (6.4-8.2)
[2020-07-23 16:59] VITALS: BP 135/70
[2020-07-23 18:00] VITALS: BP 128/55
[2020-07-23 20:00] VITALS: BP 125/56
[2020-07-23 20:55] VITALS: BP 113/61; BP 121/51; BP 121/52; BP 123/50; BP 132/55
[2020-07-24 04:00] VITALS: BP 113/51
[2020-07-24 08:00] VITALS: BP 125/51
--- NOTE | 2020-07-24 12:13 | EKG ---
[place] [address] ELECTROCARDIOGRAM REPORT Name: JENNI ASHTON Room: [address] ADM IN [facility].#: [id number] Admission: 07/23/20 Attend Phys: Pj Pham Discharge: Date of : 46 Date of Service: 07/23/20 1336 Report #: [id number] THIS REPORT FOR: //name// [facility] ED Test Date: 2020-07-23 Test Time: 13:36:16 Pat Name: JENNI ASHTON Department: Room: [facility] Gender: F Photographer Aerial: NENA : 1950 Requested By: Ross Calix Order Number: [id number] MD: Kyle Fraire Measurements Intervals [place] Rate: 86 P: 9 [place]: 164 QRS: -12 QRSD: 143 T: 39 QT: 412 QTc: 493 Interpretive Statements Sinus rhythm Right bundle branch block Baseline wander in lead(s) II,III,aVF Compared to ECG 07/20/2020 11:15:30 No significant changes Electronically Signed On 07-24-2020 12:13:25 CDT by Kyle Fraire [email or web address] <ELECTRONICALLY SIGNED> By: Asha Fraire MD, FACC 07/24/20 1213 1336 1336 Asha Fraire MD, FACC /EPI
[2020-07-24 16:00] VITALS: BP 143/48
[2020-07-24 19:45] VITALS: BP 153/90
[2020-07-25] VITALS: BP 134/55
[2020-07-25 04:04] VITALS: BP 113/56
[2020-07-25 07:45] VITALS: BP 126/63
[2020-07-25 10:03] LABS: HEMATOCRIT 23.2 % (37.0-47.0); HEMOGLOBIN 7.6 gm/dL (12.0-15.0); MCH 30.3 pg (26.0-34.0); MCHC 32.7 g/dL (28.0-37.0); MCV 92.8 fL (80.0-100.0); MPV 7.1 fl. (7.2-11.1); NUCLEATED RBCS 0 /100WBC; PLATELET COUNT* 146 thou/uL (150-400); RDW-CV 19.3 % (10.5-14.5); WBC 4.8 thou/uL (4.0-11.0)
[2020-07-25 10:23] LABS: ALBUMIN 2.7 g/dL (3.4-5.0); CALCIUM 8.7 mg/dL (8.5-10.1); CREATININE 0.8 mg/dL (0.6-1.3); POTASSIUM 3.3 mmol/L (3.5-5.1); TOTAL BILIRUBIN 0.5 mg/dL (<0.1-1.0); TOTAL PROTEIN 6.3 g/dL (6.4-8.2)
[2020-07-25 10:34] LABS: ABSOLUTE EOSINOPHILS 0.4 thou/uL (0.0-0.7); ABSOLUTE LYMPHOCYTES 2.1 thou/uL (0.8-5.3); ABSOLUTE NEUTROPHILS 2.3 thou/uL (1.6-8.1); PLATELET ESTIMATE ADEQUATE
[2020-07-25 12:41] VITALS: BP 117/47
[2020-07-25 17:19] VITALS: BP 135/62
[2020-07-25 20:00] VITALS: BP 91/55
[2020-07-25 23:06] LABS: IgA 400 mg/dL (64-422); IgG 794 mg/dL (586-1602); IgM 28 mg/dL (26-217)
[2020-07-26] VITALS: BP 114/43
[2020-07-26 04:00] VITALS: BP 150/60
[2020-07-26 07:04] LABS: HEMATOCRIT 22.8 % (37.0-47.0); HEMOGLOBIN 7.4 gm/dL (12.0-15.0); MCH 30.2 pg (26.0-34.0); MCHC 32.6 g/dL (28.0-37.0); MCV 92.6 fL (80.0-100.0); MPV 7.2 fl. (7.2-11.1); NUCLEATED RBCS 0 /100WBC; PLATELET COUNT* 174 thou/uL (150-400); RBC 2.46 mil/uL (4.20-5.00); RDW-CV 19.5 % (10.5-14.5); WBC 4.7 thou/uL (4.0-11.0)
[2020-07-26 07:19] LABS: ALBUMIN 2.5 g/dL (3.4-5.0); CALCIUM 8.9 mg/dL (8.5-10.1); CREATININE 0.7 mg/dL (0.6-1.3); POTASSIUM 3.8 mmol/L (3.5-5.1); TOTAL BILIRUBIN 0.5 mg/dL (<0.1-1.0); TOTAL PROTEIN 6.2 g/dL (6.4-8.2)
[2020-07-26 07:50] LABS: ABSOLUTE EOSINOPHILS 0.2 thou/uL (0.0-0.7); ABSOLUTE LYMPHOCYTES 2.1 thou/uL (0.8-5.3); ABSOLUTE MONOCYTES 0.3 thou/uL (0.0-1.2); ABSOLUTE NEUTROPHILS 2.1 thou/uL (1.6-8.1); MYELOCYTES 2 %; PLATELET ESTIMATE ADEQUATE
[2020-07-26 07:51] LABS: ANISOCYTOSIS 1+; HYPOCHROMASIA 1+; MACROCYTES Occasional; POIKILOCYTOSIS 1+; POLYCHROMASIA 1+
[2020-07-26 08:05] VITALS: BP 134/37
[2020-07-26] MEDS ORDERED: CIPRO500 MG PO (10:20)
[2020-07-26] MEDS ORDERED: VITAMIN B-121000 MC2 SUBLING (10:21)
[2020-07-26 11:37] VITALS: BP 123/59
[2020-07-26 15:07] LABS: KAPPA FREE LIGHT CHAINS 35.5 mg/L (3.3-19.4); LAMBDA FREE LIGHT CHAINS 37.9 mg/L (5.7-26.3)
[2020-07-26 21:06] LABS: GLOBULIN TOTAL 2.7 g/dL (2.2-3.9); M-SPIKE Not Observed g/dL (Not Observed)
--- NOTE | 2020-07-27 11:53 | CON ---
[address] [address] CONSULTATION Name: JENNI ASHTON Room: [address] IN [place].#: [id number] Admission: 07/23/20 Attend Phys: Romel Case Discharge: 07/26/20 Date of : 46 Report #: [id number] THIS REPORT FOR: //name// cc: Doug Miranda MD, Stephen R. MD ~ ADMISSION DIAGNOSIS: Anemia. HISTORY OF PRESENT ILLNESS: A 70-year-old female well known to me from prior wound care and surgical bone debridements. She was admitted through the Emergency Department yesterday for anemia. She was previously on oral linezolid following partial calcanectomy, but had subsequent thrombocytopenia. This was discontinued last week with continuation of her oral ceftriaxone. 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 She denies fevers, chills, nausea, or malaise. Her appetite is stable. She received 1 unit of PRBCs. Currently on parenteral ceftriaxone with good tolerance. She currently resides at [facility] for skilled rehabilitation. I reviewed her past medical history, medications, and allergies. Accu-Cheks 163, 185 is the last one. LABORATORY DATA: WBC 4.7, RBC 2.16, hemoglobin 7.2, hematocrit 19.5, platelets 116. ESR 70. BUN 21, creatinine 1.0, glucose 101, albumin 2.7. PHYSICAL EXAMINATION: Temperature 97.9, pulse 85, respirations 15, blood pressure 125/51. The wound VAC is intact to the right inferior heel and functioning properly at 175 mmHg. There was no inflammation or erythema to the periwound, no pallor/cyanosis, or signs of acute vascular embarrassment. The extremity is warm with no new lesions. No lesions noted to the left lower extremity, chronic lymphedema to both extremities. IMPRESSION: Postoperative wound, right calcaneus, status post partial calcanectomy for a polymicrobial osteomyelitis. Type 2 diabetes mellitus with lymphedema. PLAN: I left wound VAC intact since there are no signs of periwound erythema. We will have the wound vacuum change tomorrow per protocol and a surveillance aerobic wound culture taken. I will discuss with hospitalist, possibly adding further antibiotics for broader spectrum coverage. I will clarify her weightbearing status for physical therapy. I will allow toe-touch weightbearing of the right foot in a surgical shoe for transfers. I will follow up with her tomorrow and discuss with Kolby, wound care nurse. <ELECTRONICALLY SIGNED> By: Carlitos Fagan DPM 07/27/20 1153 1202 1235Daester Fagan DPM /kortney
== END 2020-07-26 15:28 | DRG 812 ==
LOC: M.ERS 13:19 → M.TBA-ER 14:40 → M.2W 14:40
PROVIDERS: Emergency Medicine Emergency Medical Services; Internal Medicine; Internal Medicine Hematology & Oncology; ADMIT Internal Medicine; ATTEND Internal Medicine
PROC: 30233N1 Transfusion of Nonautologous Red Blood Cells into Peripheral Vein, Percutaneous Approach (ICD-10-PCS; principal; 2020-07-23)
DX: D50.9 Iron deficiency anemia, unspecified (principal); Z68.43 Body mass index [BMI] 50.0-59.9, adult; M86.8X7 Other osteomyelitis, ankle and foot; E66.01 Morbid (severe) obesity due to excess calories; E11.69 Type 2 diabetes mellitus with other specified complication; E03.9 Hypothyroidism, unspecified; G47.33 Obstructive sleep apnea (adult) (pediatric); E53.8 Deficiency of other specified B group vitamins; Z20.828 Contact with and (suspected) exposure to other viral communicable diseases; Z79.82 Long term (current) use of aspirin; Z79.899 Other long term (current) drug therapy; Z88.2 Allergy status to sulfonamides; Z88.8 Allergy status to other drugs, medicaments and biological substances; Z91.048 Other nonmedicinal substance allergy status; Z79.4 Long term (current) use of insulin; Z87.891 Personal history of nicotine dependence

== ENCOUNTER → 2020-08-03 | Outpatient (CLI) | payer MEDICARE, OTHER ==
[~2020-08-03] MED LIST changes: +CIPRO500 MG PO; +VITAMIN B-121000 MC2 SUBLING
== END ==
LOC: M.WC 07-27 14:00
PROVIDERS: ATTEND Podiatrist Foot & Ankle Surgery
DX: E11.621 Type 2 diabetes mellitus with foot ulcer (principal); L97.411 Non-pressure chronic ulcer of right heel and midfoot limited to breakdown of skin; L97.511 Non-pressure chronic ulcer of other part of right foot limited to breakdown of skin; L03.115 Cellulitis of right lower limb; E11.42 Type 2 diabetes mellitus with diabetic polyneuropathy; E78.00 Pure hypercholesterolemia, unspecified; E66.01 Morbid (severe) obesity due to excess calories; E03.9 Hypothyroidism, unspecified; G47.30 Sleep apnea, unspecified; I89.0 Lymphedema, not elsewhere classified; Z68.42 Body mass index [BMI] 45.0-49.9, adult; Z85.828 Personal history of other malignant neoplasm of skin; Z85.3 Personal history of malignant neoplasm of breast; Z87.891 Personal history of nicotine dependence

== ENCOUNTER → 2020-08-10 | Outpatient (CLI) | payer MEDICARE, OTHER | LOC: M.WC 09:25 | PROVIDERS: ATTEND Podiatrist Foot & Ankle Surgery | DX: E11.621 Type 2 diabetes mellitus with foot ulcer (principal); L97.411 Non-pressure chronic ulcer of right heel and midfoot limited to breakdown of skin; L97.511 Non-pressure chronic ulcer of other part of right foot limited to breakdown of skin; L03.115 Cellulitis of right lower limb; I89.0 Lymphedema, not elsewhere classified; E11.42 Type 2 diabetes mellitus with diabetic polyneuropathy; E78.00 Pure hypercholesterolemia, unspecified; E66.01 Morbid (severe) obesity due to excess calories; E03.9 Hypothyroidism, unspecified; G47.30 Sleep apnea, unspecified; Z85.828 Personal history of other malignant neoplasm of skin; Z85.3 Personal history of malignant neoplasm of breast; Z68.42 Body mass index [BMI] 45.0-49.9, adult; Z87.891 Personal history of nicotine dependence ==

== ENCOUNTER → 2020-08-17 | Outpatient (CLI) | payer MEDICARE, OTHER | LOC: M.WC 10:11 | PROVIDERS: ATTEND Podiatrist Foot & Ankle Surgery | DX: E11.621 Type 2 diabetes mellitus with foot ulcer (principal); L97.412 Non-pressure chronic ulcer of right heel and midfoot with fat layer exposed; L97.511 Non-pressure chronic ulcer of other part of right foot limited to breakdown of skin; L03.115 Cellulitis of right lower limb; I89.0 Lymphedema, not elsewhere classified; E11.40 Type 2 diabetes mellitus with diabetic neuropathy, unspecified; E78.00 Pure hypercholesterolemia, unspecified; E66.01 Morbid (severe) obesity due to excess calories; E03.9 Hypothyroidism, unspecified; G47.30 Sleep apnea, unspecified; Z85.828 Personal history of other malignant neoplasm of skin; Z85.3 Personal history of malignant neoplasm of breast; Z87.891 Personal history of nicotine dependence ==

== ENCOUNTER → 2020-08-24 | Outpatient (CLI) | payer MEDICARE, OTHER | LOC: M.WC 08:35 | PROVIDERS: ATTEND Podiatrist Foot & Ankle Surgery | DX: E11.621 Type 2 diabetes mellitus with foot ulcer (principal); L97.411 Non-pressure chronic ulcer of right heel and midfoot limited to breakdown of skin; L03.115 Cellulitis of right lower limb; I89.0 Lymphedema, not elsewhere classified; E11.40 Type 2 diabetes mellitus with diabetic neuropathy, unspecified; E78.00 Pure hypercholesterolemia, unspecified; E03.9 Hypothyroidism, unspecified; G47.30 Sleep apnea, unspecified; E66.01 Morbid (severe) obesity due to excess calories; Z68.42 Body mass index [BMI] 45.0-49.9, adult; Z85.3 Personal history of malignant neoplasm of breast; Z85.828 Personal history of other malignant neoplasm of skin; Z87.891 Personal history of nicotine dependence; Z79.4 Long term (current) use of insulin; Z79.82 Long term (current) use of aspirin ==

== ENCOUNTER → 2020-09-07 | Outpatient (CLI) | payer MEDICARE, OTHER | LOC: M.WC 12:04 | PROVIDERS: ATTEND Podiatrist Foot & Ankle Surgery | DX: E11.621 Type 2 diabetes mellitus with foot ulcer (principal); L97.412 Non-pressure chronic ulcer of right heel and midfoot with fat layer exposed; L03.115 Cellulitis of right lower limb; I89.0 Lymphedema, not elsewhere classified; E11.40 Type 2 diabetes mellitus with diabetic neuropathy, unspecified; E78.00 Pure hypercholesterolemia, unspecified; E03.9 Hypothyroidism, unspecified; G47.30 Sleep apnea, unspecified; E66.01 Morbid (severe) obesity due to excess calories; Z68.42 Body mass index [BMI] 45.0-49.9, adult; Z85.3 Personal history of malignant neoplasm of breast; Z85.828 Personal history of other malignant neoplasm of skin; Z87.891 Personal history of nicotine dependence ==

== ENCOUNTER → 2020-09-21 | Outpatient (CLI) | payer MEDICARE, OTHER ==
[~2020-09-21] MED LIST changes: +FERREX 150150 MG PO; +HUMULINU500 SUBQ; +PHARBETOL325 MG PO
== END ==
LOC: M.WC 12:26
PROVIDERS: ATTEND Podiatrist Foot & Ankle Surgery
DX: E11.621 Type 2 diabetes mellitus with foot ulcer (principal); L97.412 Non-pressure chronic ulcer of right heel and midfoot with fat layer exposed; L03.115 Cellulitis of right lower limb; I89.0 Lymphedema, not elsewhere classified; E11.42 Type 2 diabetes mellitus with diabetic polyneuropathy; E78.00 Pure hypercholesterolemia, unspecified; E03.9 Hypothyroidism, unspecified; G47.30 Sleep apnea, unspecified; E66.01 Morbid (severe) obesity due to excess calories; Z68.42 Body mass index [BMI] 45.0-49.9, adult; Z85.3 Personal history of malignant neoplasm of breast; Z85.828 Personal history of other malignant neoplasm of skin; Z87.891 Personal history of nicotine dependence

== ENCOUNTER 2020-09-22 14:57 | Inpatient (IN) | payer MEDICARE, OTHER ==
[~2020-09-22] VITALS: Ht 157.5 cm; Wt 137.0 kg
[~2020-09-22 14:57] MED LIST changes: -FERREX 150150 MG PO; -HUMULINU500 SUBQ; -PHARBETOL325 MG PO
[2020-09-22 14:58] VITALS: BP 140/56
[2020-09-22] MEDS ORDERED: FERREX 150150 MG PO (15:03)
[2020-09-22] MEDS ORDERED: HUMULINU500 SUBQ ×2 (15:04→15:05)
[2020-09-22] MEDS ORDERED: JUVEN PACKET1 EAC1 PO (15:05)
[2020-09-22] MEDS ORDERED: PHARBETOL325 MG PO (15:07)
[2020-09-22 15:28] LABS: ABSOLUTE EOSINOPHILS 0.1 thou/uL (0.0-0.7); ABSOLUTE LYMPHOCYTES 1.5 thou/uL (0.8-5.3); ABSOLUTE MONOCYTES 0.4 thou/uL (0.0-1.2); ABSOLUTE NEUTROPHILS 2.2 thou/uL (1.6-8.1); BASOPHILS 0.4 %; EOSINOPHILS 1.4 %; HEMATOCRIT 31.5 % (37.0-47.0); HEMOGLOBIN 10.5 gm/dL (12.0-15.0); LYMPHOCYTES 36.3 %; MCH 31.9 pg (26.0-34.0); MCHC 33.4 g/dL (28.0-37.0); MCV 95.5 fL (80.0-100.0); MONOCYTES 9.1 %; MPV 7.6 fl. (7.2-11.1); NUCLEATED RBCS 0 /100WBC; PLATELET COUNT* 219 thou/uL (150-400); POLYS 52.8 %; RDW-CV 16.6 % (10.5-14.5); WBC 4.1 thou/uL (4.0-11.0)
[2020-09-22 15:34] LABS: CALCIUM 9.3 mg/dL (8.5-10.1); CREATININE 1.2 mg/dL (0.6-1.3); POTASSIUM 3.9 mmol/L (3.5-5.1)
[2020-09-22 15:38] LABS: TOTAL BILIRUBIN 0.2 mg/dL (<0.1-1.0); TOTAL PROTEIN 7.2 g/dL (6.4-8.2)
[2020-09-22 18:45] VITALS: BP 130/70
[2020-09-22 20:20] VITALS: BP 118/56
[2020-09-23] VITALS: BP 128/54
[2020-09-23 03:58] LABS: ABSOLUTE EOSINOPHILS 0.1 thou/uL (0.0-0.7); ABSOLUTE LYMPHOCYTES 1.8 thou/uL (0.8-5.3); ABSOLUTE MONOCYTES 0.3 thou/uL (0.0-1.2); BASOPHILS 0.3 %; EOSINOPHILS 2.3 %; HEMATOCRIT 29.7 % (37.0-47.0); HEMOGLOBIN 9.7 gm/dL (12.0-15.0); MCH 31.2 pg (26.0-34.0); MCHC 32.7 g/dL (28.0-37.0); MCV 95.4 fL (80.0-100.0); MPV 7.6 fl. (7.2-11.1); NUCLEATED RBCS 0 /100WBC; PLATELET COUNT* 197 thou/uL (150-400); POLYS 47.4 %; RBC 3.12 mil/uL (4.20-5.00); RDW-CV 16.8 % (10.5-14.5); WBC 4.2 thou/uL (4.0-11.0)
[2020-09-23 04:04] VITALS: BP 114/51
[2020-09-23 04:09] LABS: CALCIUM 9.1 mg/dL (8.5-10.1); POTASSIUM 3.9 mmol/L (3.5-5.1)
--- NOTE | 2020-09-23 07:18 | NUR ---
PT RECIEVED FROM ED IN ROOM 111. DENIES PAIN AND SOB. ALERT AND ORIENTED X4. CALL LIGHT WITHIN REACH AND BED IN LOW POSITION. HOURLY ROUNDING DONE FOR PT SAFETY.
[2020-09-23 09:00] VITALS: BP 111/41
--- NOTE | 2020-09-23 12:40 | EKG ---
[place] [address] ELECTROCARDIOGRAM REPORT Name: JENNI ASHTON Room: [address] IN [facility]#: [id number] Admission: 09/22/20 Attend Phys: Giuseppe Ma, Discharge: Date of : 46 Date of Service: 09/22/20 1516 Report #: [id number] THIS REPORT FOR: //name// [facility] ED Test Date: 2020-09-22 Test Time: 15:16:10 Pat Name: JENNI ASHTON Department: Room: [facility] Gender: F Chief Of Police: RENEE : 1950 Requested By: Rachna Shannon Order Number: [id number] MD: Raymon Perales Measurements Intervals [place] Rate: 88 P: -15 CT: 163 QRS: -47 QRSD: 142 T: 37 QT: 393 QTc: 476 Interpretive Statements Sinus rhythm RBBB and LAFB Baseline wander in lead(s) V4,V6 Compared to ECG 07/23/2020 13:36:16 Left anterior fascicular block now present Electronically Signed On 09-23-2020 12:40:23 ATTENDANT SALES by Raymon Perales [email or web address] <ELECTRONICALLY SIGNED> By: Raymon Perales MD, FACC 09/23/20 1240 1516 1516 Raymon Perales MD, FACC /EPI
[2020-09-23 14:11] VITALS: BP 110/40
[2020-09-23 15:23] VITALS: BP 111/41
--- NOTE | 2020-09-23 17:17 | NUR ---
PT FROM [facility], SHE HAD I/D OF ULER ON RT FOOT ON 09/21, SHE SAW SOME BLEEDING BETWEEN TOES THAT WAS NEW. QUALITY ASSURANCE/R&D LAB TECHNICIAN THOUGHT ADMIT TO HOSP WAS NECESSARY. SHE WAS LYING IN BED AT TIME OF ASSESSMENT. DR TAPIA CALLED WITH DSG CHANGE ORDER, ID CONTACTED PT BY PHONE FOR CONSULT. PT FOOT IS WRAPPED AND ORDERS FOR DSG CHANGE IN THE CHART. PT GOT UP TO BSC TODAY WITH VERY LARGE SOFT BM, PT HAS RASH UNDER LT BREAST THAT IS RED AND PAINFUL, AG CLOTH PLACED TO CONTROL WETNESS AND PAIN. FOOT IS WRAPPED WITH AQUACEL AG, ABD,KERLIX, AND TODD, THIS MAY BE CHANGED EVERYOTHER DAY. PT HAS BEEN SITTING IN WHEELCHAIR THIS AFTERNOON AND STATES SHE FEELS BETTER WHEN SITTING. IVF INFUSING PER ORDER. PT STATES SHE HAS HAD A MRSA SWAB THAT WAS POSITIVE RECENTLY.
[2020-09-23 20:20] VITALS: BP 138/66
[2020-09-24] VITALS (7 sets, daily range): BP systolic 112–142; BP diastolic 52–67
[2020-09-24] MEDS ORDERED: FLORANEX TABLE1 EACH PO (05:49)
[2020-09-24] MEDS ORDERED: JUVEN PACKET1 EAC1 PO (05:51)
--- NOTE | 2020-09-24 06:04 | NUR ---
PT CARE ASSUMED AT 1930. C/O PAIN, MEDICATION GIVEN PER EMAR. SAT 90-92%, O2 CONNECTED ON 2L NC. ALERT AND ORIENTED X4. CALL LIGHT WITHIN REACH AND BED IN LOW POSITION. HOURLY ROUNDING DONE FOR PT SAFETY.
--- NOTE | 2020-09-24 18:32 | NUR ---
PT IS AO X4 LYING IN BED AT TIME OF ASSESSMENT. SHE IS MORE FATIGUED TODAY AND HAS BEEN PLACED ON OXYGEN 2L NC BY MEDICARE SPECIALIST. SHE DENIES SOA. SHE HAS NO PAIN AND HAS RT FOOT WRAPPED AND ELEVATED WITH PILLOWS. DRESSING CHANGED TODAY WITH PICTURES OBTAINED OF WOUND FOR ADMIT. SHE HAS AN OPEN WOUND TO RT THIRD TOE, AQUACEL APPLIED WITH ABD AND GAUZE WRAP AND HELD IN PLACE WITH TODD PER ORDER. HEEL WOUND LOOKS GOOD WITH SMALL ESCHAR, AQUACEL PLACED AND WRAPPED IN SAME FASHION. PT HAS SLEPT MOST OF THE DAY, NOT LEAVING BED. SHE HAS EATEN MOST OF MEAL TRAYS AND DENIES ANY PAIN AT THIS TIME.
[2020-09-25 04:22] LABS: ABSOLUTE LYMPHOCYTES 1.8 thou/uL (0.8-5.3); ABSOLUTE MONOCYTES 0.3 thou/uL (0.0-1.2); ABSOLUTE NEUTROPHILS 3.2 thou/uL (1.6-8.1); BASOPHILS 0.3 %; EOSINOPHILS 0.5 %; HEMOGLOBIN 9.3 gm/dL (12.0-15.0); LYMPHOCYTES 34.7 %; MCH 31.6 pg (26.0-34.0); MCHC 33.3 g/dL (28.0-37.0); MCV 94.8 fL (80.0-100.0); MONOCYTES 5.4 %; MPV 7.2 fl. (7.2-11.1); NUCLEATED RBCS 0 /100WBC; PLATELET COUNT* 182 thou/uL (150-400); POLYS 59.1 %; RBC 2.95 mil/uL (4.20-5.00); RDW-CV 16.6 % (10.5-14.5); WBC 5.3 thou/uL (4.0-11.0)
[2020-09-25 04:30] LABS: ALBUMIN 2.4 g/dL (3.4-5.0); CALCIUM 8.4 mg/dL (8.5-10.1); CREATININE 0.8 mg/dL (0.6-1.3); POTASSIUM 3.9 mmol/L (3.5-5.1); TOTAL BILIRUBIN 0.3 mg/dL (<0.1-1.0); TOTAL PROTEIN 6.3 g/dL (6.4-8.2)
[2020-09-25 04:56] VITALS: BP 107/46
--- NOTE | 2020-09-25 06:55 | NUR ---
Alert and oriented x 4. She was febrile this shift. BP,pulse,O2 sat on 2L n/c and resp are in normal limits. Dr Michoacano Lucas was notified of temp and she ordered blood cultures x 2. She had tylenol for temp. She has slept well.
[2020-09-25 12:00] VITALS: BP 104/44
[2020-09-25 13:59] VITALS: BP 121/62
[2020-09-25 16:00] VITALS: BP 120/54
--- NOTE | 2020-09-25 18:51 | NUR ---
PT AO X4 LYING IN BED AT BEGINING OF SHIFT, OXYGEN 2L NC, PT LUNGS CTA/DIM DUE TO BODY HABITUS. SHE IS COUGHING BUT IS NOT VERY PRODUCTIVE. DR NICOLE SPOKE WITH HER AT LENGHT ABOUT RISKS AND BENEFITS OF CONVALESCENT PLASMA AND REMDESIVIR. PT RECEIVED BOTH THIS PM, SHE WAS FEBRILE IN THE AM BUT WITH TYLENOL SHE DID NOT HAVE FEVER THROUGHOUT THE DAY, DURING THE PLASMA INFUSION PT BECAME HYPOTENSIVE BUT ASYMPTOMATIC, ABOUT 2 HRS POST INFUSION PT BECAME TACHYCARDIC AND WAS NAUSEOUS TO WHICH SHE RECEIVED ZOFRAN WITH LITTLE HELP. PT OXYGEN DEMAND WAS INCREASED A LITTLE AT 88 PERCENT AND I INCREASED HER TO 3L PER NC. BP WAS A LITTLE SOFT 100/50s. SHE HAS DRYHEAVES WITH COUGH AND IS GETTING THICK GREENISH WHITE SPUTUM UP. DR NICOLE WAS CONTACTED INITIALLY ABOUT THE HEART RATE AND WAS NOT CONCERNED REQUESTING NIGHT NURSE TO CALL WITH ANY CHANGES.
[2020-09-26 00:50] VITALS: BP 107/55
[2020-09-26 05:08] LABS: ABSOLUTE LYMPHOCYTES 0.9 thou/uL (0.8-5.3); ABSOLUTE MONOCYTES 0.2 thou/uL (0.0-1.2); ABSOLUTE NEUTROPHILS 6.6 thou/uL (1.6-8.1); BASOPHILS 0.1 %; HEMATOCRIT 30.9 % (37.0-47.0); HEMOGLOBIN 10.4 gm/dL (12.0-15.0); LYMPHOCYTES 12.3 %; MCH 31.5 pg (26.0-34.0); MCHC 33.7 g/dL (28.0-37.0); MCV 93.3 fL (80.0-100.0); MONOCYTES 2.4 %; MPV 7.5 fl. (7.2-11.1); NUCLEATED RBCS 0 /100WBC; PLATELET COUNT* 171 thou/uL (150-400); POLYS 85.2 %; RBC 3.31 mil/uL (4.20-5.00); RDW-CV 16.2 % (10.5-14.5); WBC 7.7 thou/uL (4.0-11.0)
[2020-09-26 05:22] LABS: PREALBUMIN 12.4 mg/dL (18.0-35.7)
[2020-09-26 05:26] LABS: ALBUMIN 2.4 g/dL (3.4-5.0); CALCIUM 8.7 mg/dL (8.5-10.1); CREATININE 0.9 mg/dL (0.6-1.3); POTASSIUM 4.4 mmol/L (3.5-5.1); TOTAL BILIRUBIN 0.3 mg/dL (<0.1-1.0); TOTAL PROTEIN 6.8 g/dL (6.4-8.2)
[2020-09-26 07:50] VITALS: BP 130/54
--- NOTE | 2020-09-26 09:34 | NUR ---
Nutrition: consulted for wound. Pt with chronic DM ulcers on rt foot. BMI indicates class III morbid obesity. Albumin 2.4, prealbumin 12.4. BG 167-254. Pt in with COVID 19. Nurse this am did not know how pt did with breakfast. RN on 09/24 noted pt "ate most of meal trays," but no intake records. Will order Mele BID and recommneded RN encourage intake. Assessed at low-mild nutrition risk at this time.
[2020-09-26 14:04] VITALS: BP 157/43
--- NOTE | 2020-09-26 15:24 | NUR ---
WOUND NURSE: PATIENT SEEN TO ADDRESS DIABETIC WOUNDS ON THE RIGHT HEEL AND 3RD TOE. RIGHT HEEL MEASURES 4.5 X 2.5 X 0.5 CM., AND CONTAINS PINK GRANULATION TISSUE AND MODERATE AMOUNT OF SEROUSANGUINOUS DRAINAGE. RIGHT 3RD TOE WITH LINEAR WOUND ON THE PLANTAR SURFACE MEASURING 1.0 X 3.0 X 0.5 CM, CONTAINS RED, NONGRANULATING TISSUE IN THE WOUND BED AND SANGUINOUS DRAINAGE IN MODERATE AMOUNT. THERE IS NO PERIWOUND REDNESS, WARMTH, OR INDURATION AT TIME OF THIS ASSESSMENT. BOTH WOUNDS CLEANSED WITH SOAP AND WATER, RINSED WITH WATER, THEN PATTED DRY. APPLIED AQUACEL AG UNDER ABD TO HEEL, THEN WRAPPED WITH 4 LAYER COMPRESSION WRAP. APPIED AQUACEL AG TO TOE WOUND, THEN WRAPPED WTIH 2 INCH CONFORMING GAUZE, THEN SECURED WITH TAPE. INSTRUCTED ON MEASURES TO PROMOTE HEALING AND PREVENT COMPLICATIONS WITH GOOD UNDERSTANDING ACHIEVED.
--- NOTE | 2020-09-26 16:57 | NUR ---
SPOKE WITH DAUGHTER,EDOUARD, ON PHONE [phone]. PT.DID NOT ANSWER PHONE IN ROOM. EDOUARD SAID SHE LIVES WITH HER MOM AND DAD. PT.HAS BEEN AT [facility] SINCE ABOUT THE END OF JUN. SHE SAID SINCE [facility] HAS TAKEN OVER IT IS TERRIBLE OVER THERE. THEY DON'T DRESS HER FOOT THEY SHOULD, DON'T GIVE HER HER MEDS LIKE THEY SHOULD, HAVE FORGOTTEN TO SCHEDULE HER TRANSPORTATION OVER TO [facility]. SHE REALLY DOES NOT WANT HER TO GO BACK OVER THERE AT DISCHARGE. WOULD MUCH RATHER HER GO HOME WITH HH. SHE JUST DOES NOT KNOW IF SHE COULD TAKE CARE OF HER. SHE HAD BEEN ON SERVICE WITH [facility] AND HAD JEFFREY A NURSE. SHE WAS WONDERFUL. CM WILL FOLLOW TO DETERMINE SAFE DISCHARGE PLAN FOR PT.
[2020-09-26 18:22] VITALS: BP 128/56
--- NOTE | 2020-09-26 18:23 | NUR ---
ASSESSMENT DOCUMENTED. MEDS GIVEN PER E-MAR. IV PATENT. PT ON 3L NC THIS SHIFT. PTS FAMILY UPDATED ON PLAN OF CARE. DRESSING CHANGED BY WOUND CARE THIS SHIFT. ISOLATION MAINTAINED.
[2020-09-26 19:57] VITALS: BP 115/64
[2020-09-27] VITALS: BP 117/49
[2020-09-27 04:00] VITALS: BP 128/58
[2020-09-27 05:10] LABS: ABSOLUTE MONOCYTES 0.2 thou/uL (0.0-1.2); ABSOLUTE NEUTROPHILS 5.5 thou/uL (1.6-8.1); BASOPHILS 0.1 %; HEMATOCRIT 30.9 % (37.0-47.0); HEMOGLOBIN 10.3 gm/dL (12.0-15.0); LYMPHOCYTES 14.3 %; MCHC 33.3 g/dL (28.0-37.0); MCV 93.3 fL (80.0-100.0); MONOCYTES 2.8 %; MPV 7.6 fl. (7.2-11.1); NUCLEATED RBCS 0 /100WBC; PLATELET COUNT* 195 thou/uL (150-400); POLYS 82.8 %; RBC 3.31 mil/uL (4.20-5.00); WBC 6.6 thou/uL (4.0-11.0)
[2020-09-27 05:38] LABS: ALBUMIN 2.3 g/dL (3.4-5.0); POTASSIUM 4.5 mmol/L (3.5-5.1); TOTAL BILIRUBIN 0.2 mg/dL (<0.1-1.0); TOTAL PROTEIN 6.7 g/dL (6.4-8.2)
[2020-09-27 05:59] LABS: PREALBUMIN 11.5 mg/dL (18.0-35.7)
[2020-09-27 08:00] VITALS: BP 152/72
[2020-09-27 17:00] VITALS: BP 147/86
--- NOTE | 2020-09-27 19:15 | NUR ---
ASSUMED PT CARE AT 0730, PT AOX4, NO C/O PAIN OR SHORTNESS OF BREATH. PT BEING OFFERED TO BE TURNED Q2H BUT MOSTLY REFUSES, GOT UP TO COMODE TO GO TO BATHROOM AND MOVES SELF AROUND IN BED. PT GOAL IS TO REMAIN FREE FROM SKIN BREAKDOWN AND KEEP SATS ABOVE 90%. MEDS PER MAR, HOURLY ROUNDING OBSERVED, FALL PRECAUTIONS IN PLACE, CALL LIGHT W/IN REACH.
[2020-09-27 21:14] VITALS: BP 145/73
[2020-09-27 23:33] VITALS: BP 138/64
[2020-09-28 04:00] VITALS: BP 134/62
--- NOTE | 2020-09-28 04:05 | NUR ---
PT A&O, VSS ON 3L NC - CPAP WHILE SLEEPING, PT SR/SB WITH BBB ON MONITOR. PT SLEEPING WELL, HOURLY ROUNDINGS COMPLETE, WILL CONTINUE TO MONITOR.
[2020-09-28 04:56] LABS: ABSOLUTE LYMPHOCYTES 0.9 thou/uL (0.8-5.3); ABSOLUTE MONOCYTES 0.1 thou/uL (0.0-1.2); ABSOLUTE NEUTROPHILS 4.5 thou/uL (1.6-8.1); BASOPHILS 0.1 %; HEMATOCRIT 31.2 % (37.0-47.0); HEMOGLOBIN 10.3 gm/dL (12.0-15.0); LYMPHOCYTES 16.7 %; MCH 30.8 pg (26.0-34.0); MCHC 33.2 g/dL (28.0-37.0); MONOCYTES 2.6 %; MPV 7.8 fl. (7.2-11.1); NUCLEATED RBCS 0 /100WBC; PLATELET COUNT* 196 thou/uL (150-400); POLYS 80.6 %; RBC 3.35 mil/uL (4.20-5.00); RDW-CV 15.6 % (10.5-14.5); WBC 5.6 thou/uL (4.0-11.0)
[2020-09-28 05:17] LABS: ALBUMIN 2.4 g/dL (3.4-5.0); CALCIUM 9.1 mg/dL (8.5-10.1); POTASSIUM 4.8 mmol/L (3.5-5.1); TOTAL BILIRUBIN 0.3 mg/dL (<0.1-1.0); TOTAL PROTEIN 6.5 g/dL (6.4-8.2)
[2020-09-28 05:20] LABS: PREALBUMIN 14.1 mg/dL (18.0-35.7)
[2020-09-28 09:20] VITALS: BP 151/66
[2020-09-28 11:38] VITALS: BP 134/64
[2020-09-28 11:52] VITALS: BP 126/59
[2020-09-28 16:58] VITALS: BP 125/64
--- NOTE | 2020-09-28 16:58 | NUR ---
ASSESSMENT DOCUMENTED. MEDS GIVEN PER E-MAR. IV PATENT. NO REPORTS OF PAIN THIS SHIFT. DRESSING CHANGED BY WOUND CARE THIS SHIFT. ISOLATION MAINTAINED.
[2020-09-29] VITALS: BP 117/58
[2020-09-29 03:46] VITALS: BP 118/52
[2020-09-29 05:16] LABS: HEMATOCRIT 30.5 % (37.0-47.0); HEMOGLOBIN 10.1 gm/dL (12.0-15.0); MCH 31.1 pg (26.0-34.0); MCHC 33.3 g/dL (28.0-37.0); MCV 93.6 fL (80.0-100.0); MPV 7.4 fl. (7.2-11.1); RBC 3.25 mil/uL (4.20-5.00); RDW-CV 15.8 % (10.5-14.5); WBC 4.8 thou/uL (4.0-11.0)
[2020-09-29 05:44] LABS: ALBUMIN 2.3 g/dL (3.4-5.0); CREATININE 0.8 mg/dL (0.6-1.3); MAGNESIUM 2.1 mg/dL (1.8-2.4); POTASSIUM 4.3 mmol/L (3.5-5.1); TOTAL BILIRUBIN 0.3 mg/dL (<0.1-1.0); TOTAL PROTEIN 6.1 g/dL (6.4-8.2)
[2020-09-29 08:30] VITALS: BP 123/62
[2020-09-29 12:24] VITALS: BP 126/65
[2020-09-29 20:00] VITALS: BP 122/66
--- NOTE | 2020-09-29 20:30 | NUR ---
RECEIVED REPORT AND ASSUMED CARE OF PT AT 1930, ASSESSMENT COMPLETED AT THIS TIME. PT PLEASANT AND TALKATIVE. HOB ELEVATED, NO SOA NOTED. RT FOOT DRSG DRY AND INTACT, ELEVATED ON PILLOW. PT ASSIST WITH TURNING FOR BEDPAN AND REPOSITIONING. TELEMETRY SHOWING SR WITH BBB. WILL CONT TO MONITOR AND ASSIST NEEDED. REMAINS IN ISOLATION FOR MRSA AND COVID.
[2020-09-30 00:29] VITALS: BP 141/81
[2020-09-30 03:35] VITALS: BP 141/67
--- NOTE | 2020-09-30 05:24 | NUR ---
SLEPT WELL TONIGHT. NO OXYGEN REQUIRED, TOLERATING HOME CPAP. REFUSING TO REPOSITION FROM SIDE TO SIDE, EDUCATION GIVEN. PT DOES MOVE SELF IN BED FOR COMFORT. NO CHANGE IN ASSESSMENT. TELEMETRY SHOWING SR/SB WITH BBB. HS GOALS OF REST, SAFETY AND OXYGENATION ACHIEVED.
[2020-09-30 08:30] VITALS: BP 141/79
--- NOTE | 2020-09-30 09:38 | NUR ---
WOUND NURSE: PATIENT SEEN TODAY TO COMPLETE WOUND CARE PRESCRIBED. RIGHT HEEL MEASURES 3.5 X 2.0 X 0.6 CM. PRESENTS WITH SMALL AMOUNT OF CLEAR YELLOW DRAINAGE. CONTAINS PINK AND RED GRANULATION TISSUE IN THE WOUND BED. PERIWOUND WITH CALLOUS, NO REDENSS, WARMTH, OR INDURATION. RIGHT 3RD TOE MEASURES 0.7 X 3.0 X 0.5 CM. CONTAINS RED, NONGRANULATING TISSUE IN THE WOUND BED. SMALL AMOUNT OF SEROUSANGUINOUS DRAINAGE. BLE GIRTH MEASUREMENTS FOLLOWS: FOREFOOT: RT: 25.5, LT: 26; ANKLE: RT: 24, LT: 28; CALF: RT: 49, LT: 52 CM. 2 LAYER TUBIGRIP TOES TO KNEE PROVIDED FOR LLE. 4 LAYER COMPRESSION WRAP REAPPLIED TO THE RIGHT LOWER LEG. WOUND CARE PROVIED TO RIGHT HEEL AND 3RD TOE. PATIENT REINSTRUCTED ON WT BEARING LIMITATIONS PER DR. MADRIGAL. STATES SHE UNDERSTANDS.
[2020-09-30 12:00] VITALS: BP 139/78
[2020-09-30 18:31] VITALS: BP 146/70
[2020-09-30 20:00] VITALS: BP 123/58
--- NOTE | 2020-09-30 20:00 | NUR ---
RECEIVED REPORT AND ASSUMED CARE OF PT, ASSESSMENT COMPLETED. PT RESTING IN BED AND PLAYING ON ELECTRONIC TABLET. STATES SHE IS STILL CONSTIPATED AND UNABLE TO GO EVEN WITH MULTIPLE LAXATIVES. REMAINS ON RA, NO SOA NOTED. DRSG TO RT FOOT DRY AND INTACT, ELEVATED ON PILLOW. TELEMETRY ON SHOWING SR WITH BBB. WILL CONT TO MONITOR AND ASSIST NEEDED.
--- NOTE | 2020-09-30 21:27 | NUR ---
Pt A&O x4 for entire shift. Pt pleasant with staff. Pt denies any pain. Vital signs stable. Pt turned Q2 hours. Double layered tubagrips applied to left leg to reduce swelling. Call light within reach. Bed in low position.
[2020-10-01] VITALS (7 sets, daily range): BP systolic 102–143; BP diastolic 51–67
--- NOTE | 2020-10-01 05:55 | NUR ---
SLEPT WELL TONIGHT. PT REFUSING TO REPOSITION FROM SIDE TO SIDE. ENCOURAGED TO MOVE SELF IN BED FOR COMFORT. EDUCATION GIVEN. NO CHANGE IN ASSESSMENT. TELEMETRY CONT TO SHOW SR WITH BBB. HS GOALS OF REST AND SAFETY ACHIEVED.
--- NOTE | 2020-10-01 20:09 | NUR ---
Pt remained A&O x4 for entire shift. Pt denies any pain. Vital signs stable. Pt asked to get up to chair for breakfast and pt refused. Pt educated on importance of getting out of bed. Pt also refused Q2 turns. Pt educated on importance of turning. Pt uses call light appropriately and uses bed rene. Pt had BM this morning. Meds given per MAR. Bed in low position, call light within reach.
[2020-10-02 05:06] VITALS: BP 151/52
--- NOTE | 2020-10-02 05:51 | NUR ---
PT SLEPT WELL OVERNIGHT, USING BED TO VOID AND HAVE BM THIS SHIFT. AOX4, ABLE TO USE CALL LITE AND MAKE NEEDS KNOWN. BLE COMPRESSION DRSG CDI. DRSG TO R HEEL AND R 3RD TOE CDI. RFA AND LFA SL IV. ROOM AIR SAT 95-98%. DENIES NEED FOR PAIN MED OVERNIGHT, PO ABX GIVEN ORDERED. TELE SR BBB. PT HOPEFUL FOR DISCHARGE TO SNF, REHAB SOON-DOES NOT WANT TO RETURN TO [facility]. CM FOLLOWING. HS ACCUCHECK 312, INSULINS GIVEN ORDERED. PT REFUSING MOST TURNS OVERNIGHT, ABLE TO TURN HERSELF TO GET ON AND OFF OF BEDPAN. REMAINS ON COVID ISOLATION,HX MRSA WOUND.
[2020-10-02 12:00] VITALS: BP 114/56
[2020-10-02 16:00] VITALS: BP 127/60
[2020-10-02 20:00] VITALS: BP 145/67
--- NOTE | 2020-10-02 21:11 | NUR ---
Pt remained A&O x4 for entire shift. Vital signs stable. Pt denies any pain. Pt refused to get up to chair and refused turns today. Pt educated on importance for maintaining skin integrity. Pt's wounds redressed and pictures taken and put into chart. Pt tolerated well, no pain noted. Tubagrips in place on left leg from toes to knee. Both legs elevated on pillows. Fall precautions in place.
[2020-10-03] VITALS: BP 145/52
[2020-10-03 04:00] VITALS: BP 126/60
--- NOTE | 2020-10-03 06:58 | NUR ---
ASSUMED PT'S CARE THIS PM SHIFT. ALERT AND ORIENTED. PT TOOK MEDS PER EMAR. SLET WELL THIS SHIFT. REFUSED TURN. BOTOOM GETTING RED. POSITION CHANGE EDUCATION REINFORECED. PT STILL NOT IN AGREEMENT WITH TURNS. USES BED LAWS FOR VOIDING. FALL PRECAUTION IN PLACE. R/HEEL WOUND, DRESSING INTACT. FALL PRECAUTION IN PLACE. CALL LIGHT WITHIN REACH. WILL CONTINUE TO MONITOR.
[2020-10-03 07:40] VITALS: BP 138/58
[2020-10-03] MEDS ORDERED: AMOX TR-K CLV1 EAC4 PO (08:48)
[2020-10-03] MEDS ORDERED: PREDNISONE 20 M20 MG PO (08:48)
[2020-10-03] MEDS ORDERED: CIPRO500 MG PO (08:48)
[2020-10-03] MEDS ORDERED: LANTUS SUBQ ×2 (08:48)
[2020-10-03] MEDS ORDERED: HUMULINU500 SUBQ (08:48)
--- NOTE | 2020-10-03 10:37 | NUR ---
WOUND NURSE: PATIENT SEEN FOR FOLLOW UP DRESSING CHANGE TO RIGHT HEEL AND 3RD TOE WOUND. BOTHER WOUNDS CLEANSED WITH SOAP AND WATER, RINSED WITH WATER, THEN PATTED DRY. APPLIED LOTION TO INTACT SKIN. APPLIED PURACHOL PLUS AG UNDER AQUACEL AG TO EACH WOUND. COVEREDD HEEL WOUND WITH ABD, WRAPPED TOE WOUND WITH 2 INCH CONFORMING GAUZE AND SECURED WITH PAPER TAPE. APPLIED 4 LAYER COMPRESSION WRAP TO RLE TOES TO KNEE. THIS WAS TOLERATED WELL AND WITHOUT COMPLAINTS OF PAIN OR OTHER DISCOMFORT. PATIENT INSTRUCTED ON MEASURES TO PROMOTE HEALING AND PREVENT COMPLICATIONS WITH GOOD UNDERSTANDING ACHIEVED. SEE INTERVENTIONS FOR ADDITIONAL INFORMATION.
[2020-10-03 12:00] VITALS: BP 128/50
--- NOTE | 2020-10-03 15:30 | NUR ---
DISCUSSE WITH AND VIRGIL MAYA,INFECTIOUS DISEASE NURSE. VIRGIL CONTACTED HEALTH DEPT TO SEE IF PT.HAD ANY COVID POSITIVE TESTS PRIOR TO ADMIT OF 09/22. SHE HAD NOT. PTS FIRST POSITIVE WAS 09/22. REGULATIONS STATE PT.MAY BE OUT OF ISOLATION 10 DAYS AFTER POSITIVE TEST. SHE IS ON DAY 11. WILL ORDER TO DC ISOLATION.
[2020-10-03 16:00] VITALS: BP 142/63
--- NOTE | 2020-10-03 17:29 | NUR ---
PT A&OX4 VSS. PT UP TO BSC ASSIST X2 AND GAIT BELT. ISOLATION PRECAUTIONS MAINTAINED THIS SHIFT. R HEEL WOUND DRESSING CHANGED BY WOUND NURSE THIS SHIFT. PT ACCUCHECK, INSULIN ADMINISTERED ORDERED. IV TO LFA AND RFA SALINE LOCKED, DRESSINGS C/D/I. PT ON ROOM AIR, SAT 95% AND GREATER. PT REMAINS CONTINENT OF B/B. PT RESTS IN ROOM WITH CALL LIGHT IN REACH, WILL CONTINUE TO MONITOR.
[2020-10-04 01:15] VITALS: BP 116/57
[2020-10-04 05:57] VITALS: BP 107/51
--- NOTE | 2020-10-04 06:08 | NUR ---
PATIENT HAS SLEPT WELL THROUGHOUT THE NIGHT. VSS ON RA. NO C/O PAIN. MEDICATIONS GIVEN ORDERED AND CHARTED. ASSESSMENT CHARTED. DRESSING TO RIGHT LOWER EXTREMITY IS C/D/I AND TUBI PROCUREMENT TECHNICIAN TO LEFT LEG IN PLACE. IV IN LEFT FOREARM-SL. IV IN RIGHT FOREARM-SL. FALL PRECAUTIONS IN PLACE AND HOURLY ROUNDS MADE. WILL CONTINUE WITH PLAN OF CARE AND NURSING TO MONITOR.
--- NOTE | 2020-10-04 16:00 | NUR ---
[facility] DECLINED TO ACCEPT PT. LEFT MESSAGE FOR DAUGHTER TO CALL CM BACK TO DISCUSS DISCHARGE PLANNING. NO RETURN CALL. WILL CALL DAUGHTER, BACK IN AM TO DISCUSS REHAB VS.SNF.
--- NOTE | 2020-10-04 18:35 | NUR ---
PT A&OX4 VSS. PT UP SBA TO BSC AND CHAIR. PT REMAINS ON ROOM AIR, SAT 96%. PT SINUS ON MONITOR. PT REMAINS CONTINENT OF B/B. PT ACCUCHECK, WITH INSULIN ADMINISTERED DIRECTED. CPAP FROM HOME AT BEDSIDE. CM CONTINUES TO WORK ON REHAB PLACEMENT. PT UP TO CHAIR FOR MEALS. PT RESTS IN BED WITH CALL LIGHT IN REACH, WILL CONTINUE TO MONITOR.
[2020-10-05 00:15] VITALS: BP 127/61
[2020-10-05 04:53] VITALS: BP 102/45
[2020-10-05 08:05] VITALS: BP 109/46
--- NOTE | 2020-10-05 09:23 | NUR ---
ASSUMED CARE OF PT THIS AM AROUND 0715- SECURITY COMPLIANCE ENGINEER IN PLACE ORDERED, TRACING SR- UPON ASSESSMENT PT NOTED TO BE RESTING IN BED, WATCHING TV- PT A&O X4- CONT OF BOWEL AND BLADDE- SBA TO BED SIDE COMMODE- LCTA/DIMINISHED IN BASES- VSS, O2 SAT 93% ON RA- ABD SOFT/OBESE/NON-TENDER, BS X4 QUADS- LAST BM REPORTED 10/04/20- IV NOTED TO RIGHT AND LEFT FA INTACT AND SL- GOOD PO INTAKE NOTED THIS AM WITH BREAKFAST- BS MONITORED ORDERED, WITH SSI PRESCRIBED- 2+ BLE EDEMA NOTED, LEG ELEVATION ENCOURGED- DRESSING NOTED C/D/I WITH NO VISIBLE DRAINAGE NOTED TO RLE, TUB IVORY POLISHER IN PLACE TO LLE ORDERED- PT DENEIS ANY C/O PAIN/DISCOMFORT AT THIS TIME- CALL LIGHT AND PERSONAL BELONGINGS WITH IN REACH- HOURLY ROUNDS IN PLACE R/T SAFETY/NEEDS- ALL NEEDS MET AT THIS TIME-WCTM
[2020-10-05 12:50] VITALS: BP 110/47
--- NOTE | 2020-10-05 13:06 | CON ---
[address] [address] CONSULTATION Name: JENNI ASHTON Room: [address] IN [place].#: [id number] Admission: 09/22/20 Attend Phys: Giuseppe Ma MD Discharge: Date of : 46 Report #: [id number] THIS REPORT FOR: cc: Doug Miranda MD, Stephen R. MD ~ Carlitos Fagan DPM DATE OF SERVICE: 10/01/2020 CHIEF COMPLAINT: The patient is well known to me for ongoing wound care to the right heel. HISTORY OF PRESENT ILLNESS: She was admitted for COVID-19 symptoms and newly developed wound to the right third toe. She is currently on oral ciprofloxacin 500 mg b.i.d. and amoxicillin and Augmentin 875 mg b.i.d. She has been afebrile, low p.o. intake. She denies chest pain, shortness of breath or wheezing. The wound care nurse, Kolby, changed her right leg compression bandage and third toe bandage 2 days ago. He states the heel wounds improving with no erythema, inflammation or cardinal signs of infection. He has been applying Aquacel Ag to the plantar wound to the right third toe as well as Aquacel to the heel with a cqrzw-tii-tmez compression wrap. LABORATORY DATA: WBC 4.8, RBC 3.25, hemoglobin 10.1, hematocrit 30.5, platelets 197. BUN 36, creatinine 0.8, glucose 251. PHYSICAL EXAMINATION: Vital Signs: Temperature 97.8, pulse 65, respirations 18, blood pressure 142/62, O2 sat 96. Extremities: The right lower extremity has a well maintained below the knee compression wrap. There is a wound to the plantar aspect of the right third toe that measures roughly 0.8 x 2.0 x 0.2 cm. There is pink granulation with some overlying slough. No inflammation or cardinal signs of infection. I did not remove the below knee leg bandage since it was just applied 2 days ago. No lesions noted to the left foot or lower extremity. IMPRESSION: Chronic ulceration right posterior calcaneus and plantar third toe with chronic lymphedema and type 2 diabetes mellitus, COVID-19. PLAN: Third toe wound was cleansed and redressed with Aquacel Ag and gauze. I recommend keeping the below-knee compression bandage until Saturday, this is a 2-3 time a week dressing and can be left on longer. I wrote an order for physical therapy to work with the patient in a weightbearing capacity[place] [address] CONSULTATION Name: JENNI ASHTON Room: [address] IN [facility].#: [id number] Admission: 09/22/20 Attend Phys: Giuseppe Ma MD Discharge: Date of : 46 Report #: [id number] weightbearing to the right heel in a surgical shoe using an assistive device during therapy for distances lasting 30 feet. <ELECTRONICALLY SIGNED> By: Carlitos Fagan DPM 10/05/20 1306 1217 1724Ddorita Fagan DPM /nt
--- NOTE | 2020-10-05 14:21 | NUR ---
WOUND NURSE: PATIENT SEEN FOR FOLLOW UP WOUND CARE. INSIGNIFICANT CHANGE IN RIGHT HEEL AND 3RD TOE WOUND CHARACTERISTICS. MODERATE AMOUNT OF SEROUSANGUINOUS DRAINAGE FROM HEEL AND SMALL AMOUNT OF SEROUSANGUINOUS DRAINAGE FROM 3RD TOE WOUND. WOUND CARE PROVIDED PRESCRIBED. SEE INTERVENTIONS FOR ADDITIONAL INFORMATION. PATIENT REINSTRUCTED ON LIMITATIONS WITH MOBILITY AND NEED TO CONTINUE OFFLOADING TO PREVENT UNTOWARD CHANGES TO THE WOUNDS. PATIENT STATES SHE UNDERSTANDS.
--- NOTE | 2020-10-05 15:00 | NUR ---
PT.WANTING TO DISCHARGE HOME WITH DAUGHTER,EDOUARD. AGREEABLE IF THERAPY FEELS SHE IS SAFE. ACCORDING TO THERAPY FOLLOW UPS, PT.IS SBA WITH WALKING,SHORT DISTANCES~20FT. AND MIN ASSIST TO TRANSFER. SPOKE WITH DAUGHTER,EDOUARD. EDOUARD WORKS ON AND . HER MOMS FRIEND,RANDALL,HAS OFFERED TO COME STAY WITH HER ON . SHE THINKS HER AUNT WILL BE ABLE TO STAY ON . SHE WILL CHECK WITH AUNT. ALL OTHER TIMES EDOUARD IS HOME WITH PT. SHE DID NOT KNOW IF HER MOM WOULD WANT A WC BECAUSE HOUSE IS SMALL AND UNSURE IT WOULD FIT IN HOUSE. EDOUARD WILL TAKE NEXT WEEK OFF OF WORK TO BE HOME WITH MOM INITIALLY. PT.DOES HAVE A HOSPITAL BED AND WALKER. PT.SEES AND AT [facility]. EDOUARD WOULD BE ABLE TO BRING PT.HOME FIRST THING ON SATURDAY AM. HOME HEALTH WILL BE ARRANGED WITH [facility]. CM WILL SPEAK WITH PT.TOMORROW ABOUT WC AT HOME. ALSO HAS ONE STEP TO GET IN FRONT DOOR. WILL HAVE THERAPY DO STAIRS WITH HER TOMORROW.
[2020-10-05 17:05] VITALS: BP 122/45
[2020-10-05 19:45] VITALS: BP 126/61
[2020-10-06] VITALS: BP 120/51
--- NOTE | 2020-10-06 03:47 | NUR ---
PT AO X4 SITTING IN WHEEL CHAIR AT TIME OF ASSESSMENT. SHE IS FEELING WELL ON ROOM AIR AND STATES SHE HAS BEEN WALKING AROUND HER ROOM TODAY. SHE IS HOPEFUL SHE WILL BE ABLE TO RETURN HOME THIS WEEK. SHE HAS BEEN IN ASSISTED LIVING SINCE AND IS PRETTY EMOTIONAL ABOUT THE POSSIBILITY OF GETTING HOME. PT VSS, LUNGS CLEAR/DIM WITH NO COUGH REPORTED. WOUND NURSE WAS IN TODAY TO REBANDAGE HER RT LEG FOR WOUNDS AND LT LEG FOR EDEMA. WCTM
--- NOTE | 2020-10-06 06:53 | NUR ---
AM MED PASS COMPLETED,PT WAS TRANSPORTED TO ROOM 200 AT 0635 VIA BED IN GOOD CONDITION WITH RN AND PCT WITH NO PROBLEM. REPORT WILL BE GIVEN TO DAY SHIFT PER REQUEST OF CHARGE NURSE RECEIVING PT.
[2020-10-06 08:00] VITALS: BP 111/37
[2020-10-06] MEDS ORDERED: AMOX TR-K CLV1 EAC4 PO (08:58)
[2020-10-06] MEDS ORDERED: CIPRO500 MG PO (08:58)
--- NOTE | 2020-10-06 11:03 | NUR ---
Per previous CM note, plan is for Pt to dc to home tomorrow with [facility]. Per , Pt is medically stable to dc today. CM to fax HH orders at ct.
[2020-10-06 11:48] VITALS: BP 125/78
--- NOTE | 2020-10-06 19:54 | NUR ---
PATIENT IS ALERT AND ORIENTED X 4 THIS AM AND THROUGHTOUT THE DAY. TELE SHOWS NSR. 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 PATIENT ASSISTED WITH ADLS THROUGHOUT THE DAY. PLANS FOR DISCHARGE TO HOME TOMMORROW. NO FALLS OR INJURY. TELE SHOWS NSR.
[2020-10-06 20:00] VITALS: BP 128/47
[2020-10-06 23:39] VITALS: BP 115/42
[2020-10-07 04:56] VITALS: BP 118/51
[2020-10-07 08:00] VITALS: BP 140/46
[2020-10-07 08:36] VITALS: BP 118/51
[2020-10-07 12:00] VITALS: BP 124/78
--- NOTE | 2020-10-07 12:34 | NUR ---
WOUND NURSE: PT ANTICIPATING DISCHARGE TO HOME TODAY. DRESSING REMOVED TO TOE AND COMPRESSION WRAP REMOVED. OPEN AREA CLEANSED WITH SOAP AND WATER AND PAT DRY. MEASUREMENTS COMPLETED. RIGHT FOOT 3RD TOE 0.6 X 2.4 X 0.4 ADN RIGHT FOOT HEEL MEASURES 3.2 X 2.4 X 0.4 SMALL AMOUNT OF SEROUSANGOINOUS DRAINGE NOTED TO TOE AND MODERATE AMOUNT OF SAME NOTED TO HEEL. PICTURES WERE TAKEN AND GIVEN TO PRIMARY RN RYLAND TO PLACE IN CHART. NEW DRESSING TO TOE AND HEEL WITH NEW 4 LAYER COMPRESSION WRAP APPLIED PER IRENE. DENIES PAIN AND TOLERATED ALL WELL. EDUCATION ON WRAP AND OFF LOADING WELL NUTRITION AND SIGNS OF INFECTION REVIEWED. PT VOICED UNDERSTANDING AND AGREED. DENEIS CURRENT NEEDS. TIFF COBIAN SCHEDULED APPOINTMENTS WITH [facility] IN FOLLOW UP.
--- NOTE | 2020-10-07 13:31 | NUR ---
ASSUMED CARE OF PATIENT THIS MORNING FROM NIGHT NURSE. PT IS DOING WELL AND IS GOING TO BE DISCHARGED HOME TODAY. SHE WAS EDUCATED ON POC, FALL SAFETYAND USING THE CALL LIGHT FOR ASSISTANCE. WILL CONTINUE TO MONITOR.
[2020-10-07 14:09] VITALS: BP 118/51
== END 2020-10-07 14:30 | disposition home or self-care (01) | DRG 871 ==
LOC: M.ERS 14:57 → M.ORTHSURG 17:06 → M.TBA-ER 17:06 → M.ORTHSURG 19:15 → M.2W 10-06 06:40
PROVIDERS: Internal Medicine; Personal Emergency Response Attendant; ADMIT Internal Medicine; ATTEND Internal Medicine
DX: A41.89 Other specified sepsis (principal); U07.1 COVID-19; J96.01 Acute respiratory failure with hypoxia; E43 Unspecified severe protein-calorie malnutrition; Z68.43 Body mass index [BMI] 50.0-59.9, adult; E11.621 Type 2 diabetes mellitus with foot ulcer; E66.01 Morbid (severe) obesity due to excess calories; L97.519 Non-pressure chronic ulcer of other part of right foot with unspecified severity; G47.33 Obstructive sleep apnea (adult) (pediatric); E11.40 Type 2 diabetes mellitus with diabetic neuropathy, unspecified; E78.5 Hyperlipidemia, unspecified; D64.9 Anemia, unspecified; I35.0 Nonrheumatic aortic (valve) stenosis; Z88.2 Allergy status to sulfonamides; Z88.8 Allergy status to other drugs, medicaments and biological substances; Z88.1 Allergy status to other antibiotic agents; Z91.041 Radiographic dye allergy status; Z87.891 Personal history of nicotine dependence; Z79.82 Long term (current) use of aspirin; Z79.899 Other long term (current) drug therapy

== ENCOUNTER → 2020-11-02 | Outpatient (CLI) | payer MEDICARE, OTHER ==
[~2020-11-02] MED LIST changes: +FERREX 150150 MG PO; +HUMULINU500 SUBQ; +PHARBETOL325 MG PO; +PREDNISONE 20 M20 MG PO
== END ==
LOC: M.WC 12:29
PROVIDERS: ATTEND Podiatrist Foot & Ankle Surgery
DX: E11.621 Type 2 diabetes mellitus with foot ulcer (principal); L97.412 Non-pressure chronic ulcer of right heel and midfoot with fat layer exposed; L84 Corns and callosities; L03.115 Cellulitis of right lower limb; I89.0 Lymphedema, not elsewhere classified; E11.42 Type 2 diabetes mellitus with diabetic polyneuropathy; E78.00 Pure hypercholesterolemia, unspecified; E03.9 Hypothyroidism, unspecified; G47.30 Sleep apnea, unspecified; E66.01 Morbid (severe) obesity due to excess calories; Z68.42 Body mass index [BMI] 45.0-49.9, adult; Z85.3 Personal history of malignant neoplasm of breast; Z85.828 Personal history of other malignant neoplasm of skin; Z87.891 Personal history of nicotine dependence

== ENCOUNTER 2020-11-23 12:10 | Inpatient (IN) | payer MEDICARE, OTHER ==
[~2020-11-23] VITALS: Ht 152.4 cm; Wt 134.3 kg
[2020-11-23 16:30] VITALS: BP 127/54
[2020-11-23 16:44] LABS: ABSOLUTE BASOPHILS 0.1 thou/uL (0.0-0.2); ABSOLUTE LYMPHOCYTES 1.9 thou/uL (0.8-5.3); ABSOLUTE MONOCYTES 0.5 thou/uL (0.0-1.2); ABSOLUTE NEUTROPHILS 5.1 thou/uL (1.6-8.1); BASOPHILS 0.9 %; EOSINOPHILS 0.6 %; HEMATOCRIT 27.5 % (37.0-47.0); HEMOGLOBIN 8.9 gm/dL (12.0-15.0); LYMPHOCYTES 24.5 %; MCH 28.4 pg (26.0-34.0); MCHC 32.6 g/dL (28.0-37.0); MCV 87.3 fL (80.0-100.0); MONOCYTES 6.8 %; MPV 6.9 fl. (7.2-11.1); NUCLEATED RBCS 0 /100WBC; PLATELET COUNT* 266 thou/uL (150-400); POLYS 67.2 %; RBC 3.15 mil/uL (4.20-5.00); RDW-CV 18.9 % (10.5-14.5); WBC 7.6 thou/uL (4.0-11.0)
[2020-11-23 16:59] LABS: ALBUMIN 2.4 g/dL (3.4-5.0); CALCIUM 9.2 mg/dL (8.5-10.1); CREATININE 0.9 mg/dL (0.6-1.3); POTASSIUM 3.7 mmol/L (3.5-5.1); TOTAL BILIRUBIN 0.5 mg/dL (<0.1-1.0); TOTAL PROTEIN 7.1 g/dL (6.4-8.2)
[2020-11-23 19:05] VITALS: BP 127/54
[2020-11-23 21:11] VITALS: BP 121/46
[2020-11-24 02:06] LABS: GLYCOHEMOGLOBIN (HGB A1C) 6.4 % (4.8-5.6)
[2020-11-24 04:26] LABS: ABSOLUTE EOSINOPHILS 0.2 thou/uL (0.0-0.7); ABSOLUTE LYMPHOCYTES 2.3 thou/uL (0.8-5.3); ABSOLUTE MONOCYTES 0.5 thou/uL (0.0-1.2); BASOPHILS 0.6 %; HEMATOCRIT 24.7 % (37.0-47.0); HEMOGLOBIN 7.9 gm/dL (12.0-15.0); LYMPHOCYTES 38.2 %; MCH 28.4 pg (26.0-34.0); MCHC 32.1 g/dL (28.0-37.0); MCV 88.4 fL (80.0-100.0); MONOCYTES 8.8 %; MPV 6.8 fl. (7.2-11.1); NUCLEATED RBCS 0 /100WBC; PLATELET COUNT* 246 thou/uL (150-400); POLYS 49.4 %; RDW-CV 18.7 % (10.5-14.5)
[2020-11-24 05:06] LABS: CALCIUM 9.1 mg/dL (8.5-10.1); CREATININE 0.9 mg/dL (0.6-1.3); POTASSIUM 3.3 mmol/L (3.5-5.1)
[2020-11-24 08:30] VITALS: BP 117/42
[2020-11-24 20:30] VITALS: BP 117/53
[2020-11-25 04:32] LABS: HEMATOCRIT 26.3 % (37.0-47.0); HEMOGLOBIN 8.4 gm/dL (12.0-15.0); MCH 28.3 pg (26.0-34.0); MCHC 32.1 g/dL (28.0-37.0); MCV 88.3 fL (80.0-100.0); MPV 6.6 fl. (7.2-11.1); RBC 2.98 mil/uL (4.20-5.00); RDW-CV 18.9 % (10.5-14.5); WBC 6.1 thou/uL (4.0-11.0)
[2020-11-25 05:01] LABS: ALBUMIN 2.1 g/dL (3.4-5.0); CALCIUM 8.8 mg/dL (8.5-10.1); CREATININE 0.9 mg/dL (0.6-1.3); MAGNESIUM 1.8 mg/dL (1.8-2.4); POTASSIUM 3.5 mmol/L (3.5-5.1); TOTAL BILIRUBIN 0.4 mg/dL (<0.1-1.0); TOTAL PROTEIN 6.6 g/dL (6.4-8.2)
[2020-11-25 07:45] VITALS: BP 111/45
[2020-11-25 16:24] VITALS: BP 129/56
[2020-11-25 20:00] VITALS: BP 130/57
[2020-11-26 07:46] VITALS: BP 134/54
[2020-11-26 16:29] VITALS: BP 118/43
[2020-11-26 19:50] VITALS: BP 139/51
[2020-11-27 05:28] LABS: ABSOLUTE EOSINOPHILS 0.2 thou/uL (0.0-0.7); ABSOLUTE LYMPHOCYTES 1.8 thou/uL (0.8-5.3); ABSOLUTE MONOCYTES 0.3 thou/uL (0.0-1.2); ABSOLUTE NEUTROPHILS 2.5 thou/uL (1.6-8.1); BASOPHILS 0.7 %; EOSINOPHILS 3.7 %; HEMATOCRIT 27.2 % (37.0-47.0); HEMOGLOBIN 8.7 gm/dL (12.0-15.0); LYMPHOCYTES 37.1 %; MCH 28.4 pg (26.0-34.0); MCV 88.6 fL (80.0-100.0); MONOCYTES 6.9 %; MPV 6.8 fl. (7.2-11.1); NUCLEATED RBCS 0 /100WBC; PLATELET COUNT* 286 thou/uL (150-400); POLYS 51.6 %; RBC 3.07 mil/uL (4.20-5.00); RDW-CV 18.8 % (10.5-14.5); WBC 4.9 thou/uL (4.0-11.0)
[2020-11-27 05:29] LABS: ALBUMIN 2.2 g/dL (3.4-5.0); CALCIUM 9.3 mg/dL (8.5-10.1); CREATININE 0.8 mg/dL (0.6-1.3); POTASSIUM 3.5 mmol/L (3.5-5.1); TOTAL BILIRUBIN 0.4 mg/dL (<0.1-1.0); TOTAL PROTEIN 6.6 g/dL (6.4-8.2)
[2020-11-27 08:30] VITALS: BP 135/56
[2020-11-27 16:00] VITALS: BP 128/56
[2020-11-27 20:40] VITALS: BP 127/60
[2020-11-27 23:17] VITALS: BP 127/60
[2020-11-28 06:25] VITALS: BP 126/58
[2020-11-28 06:29] VITALS: BP 127/60
--- NOTE | 2020-11-28 12:53 | EKG ---
[place] [address] ELECTROCARDIOGRAM REPORT Name: JENNI ASHTON Room: [address] IN [facility]#: [id number] Admission: 11/23/20 Attend Phys: Giuseppe Ma, Discharge: Date of : 46 Date of Service: 11/28/20 0412 Report #: [id number] THIS REPORT FOR: //name// [facility] Test Date: 2020-11-28 Test Time: 04:12:30 Pat Name: JENNI ASHTON Department: Room: [address] Gender: F Art Preparator: KEYLA : 1950 Requested By: Giuseppe Ma Order Number: [id number] Meghann MD: Jose Alfredo Luong Measurements Intervals Bath Rate: 70 P: 13 MN: 173 QRS: -37 QRSD: 146 T: 44 QT: 442 QTc: 477 Interpretive Statements Sinus rhythm Right bundle branch block Compared to ECG 09/22/2020 15:16:10 Left anterior fascicular block no longer present Electronically Signed On 11-28-2020 12:53:32 TRANSONIC ENGINEER by Jose Alfredo Luong [email or web address] <ELECTRONICALLY SIGNED> By: Jose Alfredo Luong MD, [facility] 11/28/20 1253 0412 0412 Jose Alfredo Luong MD, [facility] /EPI
[2020-11-28 16:23] VITALS: BP 109/47
[2020-11-28 20:30] VITALS: BP 102/42
[2020-11-29] VITALS: BP 100/52
[2020-11-29 04:00] VITALS: BP 107/47
[2020-11-29 06:36] LABS: ABSOLUTE NEUTROPHILS 3.1 thou/uL (1.6-8.1); HEMOGLOBIN 8.5 gm/dL (12.0-15.0); NUCLEATED RBCS 0 /100WBC
[2020-11-29 06:47] LABS: ABSOLUTE BASOPHILS 0.1 thou/uL (0.0-0.2); ABSOLUTE EOSINOPHILS 0.2 thou/uL (0.0-0.7); ABSOLUTE LYMPHOCYTES 1.8 thou/uL (0.8-5.3); ABSOLUTE MONOCYTES 0.3 thou/uL (0.0-1.2); ALBUMIN 2.2 g/dL (3.4-5.0); BASOPHILS 1.9 %; CALCIUM 8.5 mg/dL (8.5-10.1); CREATININE 0.8 mg/dL (0.6-1.3); HEMATOCRIT 26.6 % (37.0-47.0); LYMPHOCYTES 33.1 %; MCH 28.3 pg (26.0-34.0); MCV 88.4 fL (80.0-100.0); MPV 6.7 fl. (7.2-11.1); PLATELET COUNT* 247 thou/uL (150-400); POTASSIUM 3.7 mmol/L (3.5-5.1); RBC 3.01 mil/uL (4.20-5.00); TOTAL BILIRUBIN 0.4 mg/dL (<0.1-1.0); TOTAL PROTEIN 6.5 g/dL (6.4-8.2); WBC 5.4 thou/uL (4.0-11.0)
[2020-11-29 08:05] VITALS: BP 131/63
[2020-11-29 12:00] VITALS: BP 102/47
[2020-11-29 15:59] VITALS: BP 124/53
[2020-11-30] VITALS: BP 120/51
[2020-11-30 04:00] VITALS: BP 112/54
[2020-11-30 06:33] LABS: HEMOGLOBIN 8.7 gm/dL (12.0-15.0); MCH 28.6 pg (26.0-34.0); MCHC 32.3 g/dL (28.0-37.0); MCV 88.8 fL (80.0-100.0); MPV 6.7 fl. (7.2-11.1); RBC 3.04 mil/uL (4.20-5.00); RDW-CV 19.5 % (10.5-14.5); WBC 5.5 thou/uL (4.0-11.0)
[2020-11-30 06:56] LABS: CALCIUM 8.6 mg/dL (8.5-10.1); CREATININE 0.8 mg/dL (0.6-1.3); POTASSIUM 3.9 mmol/L (3.5-5.1)
[2020-11-30 08:00] VITALS: BP 117/49
[2020-11-30 12:00] VITALS: BP 106/49
[2020-11-30 15:30] VITALS: BP 122/47
[2020-11-30 20:30] VITALS: BP 117/52
[2020-12-01 06:12] LABS: HEMATOCRIT 26.1 % (37.0-47.0); HEMOGLOBIN 8.4 gm/dL (12.0-15.0); MCH 28.5 pg (26.0-34.0); MCV 89.1 fL (80.0-100.0); MPV 6.4 fl. (7.2-11.1); RBC 2.93 mil/uL (4.20-5.00); RDW-CV 19.3 % (10.5-14.5)
[2020-12-01 06:38] LABS: CALCIUM 8.8 mg/dL (8.5-10.1); CREATININE 0.7 mg/dL (0.6-1.3); POTASSIUM 3.6 mmol/L (3.5-5.1)
[2020-12-01 08:21] VITALS: BP 133/52
[2020-12-01] MEDS ORDERED: FLEXERIL PO ×2 (10:58)
[2020-12-01] MEDS ORDERED: FLAGYL500 M1 PO ×2 (10:58)
[2020-12-01 16:00] VITALS: BP 120/58
--- NOTE | 2020-12-01 18:38 | PATH ---
[address] [address] PATHOLOGY RPT PROCEDURE Name: DIGNA GARCIA Room: [address] IN .R.#: [id number] Admission: 11/23/20 Date of : 46 Discharge: Report #: [id number] Path Case #: [id number] [facility] Accession Number: [id number] . 01 Material submitted: . foot - RIGHT CALCANEUS. Modifiers: right . 01 Clinical history: . CALCANEAL OSTEOMYELITIS CHRONIC DIABETIC FOOT ULCER . 02 Diagnosis: Right calcaneus: - Acutely and chronically inflamed benign fibrovascular connective tissue attached to segment of benign and viable bone showing prominent osteomyelitis, extending to black inked edge. . (ALMA ROSA:mml; 11/30/2020) QL 11/30/2020 [facility] Local . 02 Electronically signed: . Ravin Schmitt MD, Pathologist NPI- [id number] . 01 Gross description: . The specimen is received in formalin, labeled "Digna Garcia R calcaneus" and consists of an irregular segment of bone with attached rubbery pink-henry tissue measuring 5.7 x 5.0 x 3.8 cm. The possible bone resection margin is flat to fragmented and irregular (inked black). Section reveals pink-henry bone cut surfaces and a full-thickness longitudinal section is submitted following decalcification in A1-A2.(SDY; 11/29/2020) SYU/SYU 11/30/2020 1219 Local . 02 Pathologist provided ICD-10: M86.8X7, M79.89 . 02 CPT . 388478, 845097 Specimen Comment: A courtesy copy of this report has been sent to [phone] Specimen Comment: Report sent to / Performed at: 01 [facility] [address] [place] [address] [address], [place], [place] [id number] MD Papo Ferguson MD Phone: [phone] Performed at: 02 [facility] [address] [address] [place], [place] [id number] MD Ravin Schmitt MD Phone: [phone]
[2020-12-01 20:00] VITALS: BP 104/55
[2020-12-02 09:00] VITALS: BP 116/53
== END 2020-12-02 17:45 | DRG 629 ==
LOC: M.WC 12:10 → M.3W 15:00
PROVIDERS: Family Medicine; Internal Medicine; Podiatrist Foot & Ankle Surgery; ADMIT Internal Medicine; ATTEND Internal Medicine
DX: E11.621 Type 2 diabetes mellitus with foot ulcer (principal); L03.113 Cellulitis of right upper limb; M86.8X7 Other osteomyelitis, ankle and foot; Z68.43 Body mass index [BMI] 50.0-59.9, adult; E11.69 Type 2 diabetes mellitus with other specified complication; G47.33 Obstructive sleep apnea (adult) (pediatric); E11.40 Type 2 diabetes mellitus with diabetic neuropathy, unspecified; E78.5 Hyperlipidemia, unspecified; B95.62 Methicillin resistant Staphylococcus aureus infection as the cause of diseases classified elsewhere; B96.4 Proteus (mirabilis) (morganii) as the cause of diseases classified elsewhere; E66.01 Morbid (severe) obesity due to excess calories; Z20.822 Contact with and (suspected) exposure to COVID-19; Z28.21 Immunization not carried out because of patient refusal; Z88.6 Allergy status to analgesic agent; Z88.1 Allergy status to other antibiotic agents; Z88.2 Allergy status to sulfonamides; Z88.8 Allergy status to other drugs, medicaments and biological substances; Z87.891 Personal history of nicotine dependence; Z79.4 Long term (current) use of insulin; Z86.16 Personal history of COVID-19; Z87.01 Personal history of pneumonia (recurrent); Z79.82 Long term (current) use of aspirin; Z79.899 Other long term (current) drug therapy; N18.30 Chronic kidney disease, stage 3 unspecified

== ENCOUNTER → 2020-12-05 | Outpatient (CLI) | payer MEDICARE, OTHER ==
[~2020-12-05] MED LIST changes: +FLAGYL500 M1 PO; +FLEXERIL PO
== END ==
LOC: M.WC 13:30
PROVIDERS: ATTEND Podiatrist Foot & Ankle Surgery
DX: T81.89XD Other complications of procedures, not elsewhere classified, subsequent encounter (principal); E11.621 Type 2 diabetes mellitus with foot ulcer; L97.416 Non-pressure chronic ulcer of right heel and midfoot with bone involvement without evidence of necrosis; L84 Corns and callosities; L03.115 Cellulitis of right lower limb; I89.0 Lymphedema, not elsewhere classified; E11.42 Type 2 diabetes mellitus with diabetic polyneuropathy; E78.00 Pure hypercholesterolemia, unspecified; E03.9 Hypothyroidism, unspecified; G47.30 Sleep apnea, unspecified; E66.01 Morbid (severe) obesity due to excess calories; Z68.42 Body mass index [BMI] 45.0-49.9, adult; Z85.3 Personal history of malignant neoplasm of breast; Z85.828 Personal history of other malignant neoplasm of skin; Z87.891 Personal history of nicotine dependence; Y83.8 Other surgical procedures as the cause of abnormal reaction of the patient, or of later complication, without mention of misadventure at the time of the procedure

== ENCOUNTER → 2020-12-12 | Outpatient (CLI) | payer MEDICARE, OTHER | LOC: M.WC 12:48 | PROVIDERS: ATTEND Podiatrist Foot & Ankle Surgery | DX: T81.89XD Other complications of procedures, not elsewhere classified, subsequent encounter (principal); E11.621 Type 2 diabetes mellitus with foot ulcer; L97.416 Non-pressure chronic ulcer of right heel and midfoot with bone involvement without evidence of necrosis; L84 Corns and callosities; L03.115 Cellulitis of right lower limb; I89.0 Lymphedema, not elsewhere classified; E11.42 Type 2 diabetes mellitus with diabetic polyneuropathy; E78.00 Pure hypercholesterolemia, unspecified; E03.9 Hypothyroidism, unspecified; E66.01 Morbid (severe) obesity due to excess calories; G47.30 Sleep apnea, unspecified; Z68.42 Body mass index [BMI] 45.0-49.9, adult; Z85.3 Personal history of malignant neoplasm of breast; Z85.828 Personal history of other malignant neoplasm of skin; Z87.891 Personal history of nicotine dependence; Y83.8 Other surgical procedures as the cause of abnormal reaction of the patient, or of later complication, without mention of misadventure at the time of the procedure ==

== ENCOUNTER → 2020-12-19 | Outpatient (CLI) | payer MEDICARE, OTHER ==
[~2020-12-19] MED LIST changes: +CEFTRIAXON2 GM/50 ML IV; +CUBICIN500 MG IV
== END ==
LOC: M.WC 13:00
PROVIDERS: ATTEND Podiatrist Foot & Ankle Surgery
DX: T81.89XD Other complications of procedures, not elsewhere classified, subsequent encounter (principal); E11.621 Type 2 diabetes mellitus with foot ulcer; L97.412 Non-pressure chronic ulcer of right heel and midfoot with fat layer exposed; L84 Corns and callosities; L03.115 Cellulitis of right lower limb; I89.0 Lymphedema, not elsewhere classified; E11.42 Type 2 diabetes mellitus with diabetic polyneuropathy; E78.00 Pure hypercholesterolemia, unspecified; E03.9 Hypothyroidism, unspecified; E66.01 Morbid (severe) obesity due to excess calories; G47.30 Sleep apnea, unspecified; Z68.42 Body mass index [BMI] 45.0-49.9, adult; Z85.3 Personal history of malignant neoplasm of breast; Z85.828 Personal history of other malignant neoplasm of skin; Z87.891 Personal history of nicotine dependence; Y83.8 Other surgical procedures as the cause of abnormal reaction of the patient, or of later complication, without mention of misadventure at the time of the procedure

== ENCOUNTER → 2020-12-22 | Day surgery (SDC) | payer MEDICARE, OTHER | END | disposition home or self-care (01) | LOC: M.SUR 06:04 | PROVIDERS: ATTEND Podiatrist Foot & Ankle Surgery | DX: E11.621 Type 2 diabetes mellitus with foot ulcer (principal); L97.513 Non-pressure chronic ulcer of other part of right foot with necrosis of muscle; E11.22 Type 2 diabetes mellitus with diabetic chronic kidney disease; N18.30 Chronic kidney disease, stage 3 unspecified; E03.9 Hypothyroidism, unspecified; Z98.890 Other specified postprocedural states; Z79.899 Other long term (current) drug therapy; Z79.82 Long term (current) use of aspirin; Z88.2 Allergy status to sulfonamides; Z91.041 Radiographic dye allergy status; Z20.822 Contact with and (suspected) exposure to COVID-19; Z88.8 Allergy status to other drugs, medicaments and biological substances ==

== ENCOUNTER → 2020-12-26 | Outpatient (CLI) | payer MEDICARE, OTHER | LOC: M.WC 12:58 | PROVIDERS: ATTEND Podiatrist Foot & Ankle Surgery | DX: T81.89XD Other complications of procedures, not elsewhere classified, subsequent encounter (principal); E11.621 Type 2 diabetes mellitus with foot ulcer; L97.412 Non-pressure chronic ulcer of right heel and midfoot with fat layer exposed; L84 Corns and callosities; L03.115 Cellulitis of right lower limb; I89.0 Lymphedema, not elsewhere classified; E11.42 Type 2 diabetes mellitus with diabetic polyneuropathy; E78.00 Pure hypercholesterolemia, unspecified; E03.9 Hypothyroidism, unspecified; E66.01 Morbid (severe) obesity due to excess calories; G47.30 Sleep apnea, unspecified; Z68.42 Body mass index [BMI] 45.0-49.9, adult; Z85.3 Personal history of malignant neoplasm of breast; Z85.828 Personal history of other malignant neoplasm of skin; Z87.891 Personal history of nicotine dependence; Y83.8 Other surgical procedures as the cause of abnormal reaction of the patient, or of later complication, without mention of misadventure at the time of the procedure ==

== ENCOUNTER → 2021-01-02 | Outpatient (CLI) | payer MEDICARE, OTHER | LOC: M.WC 13:00 | PROVIDERS: ATTEND Podiatrist Foot & Ankle Surgery | DX: T81.89XD Other complications of procedures, not elsewhere classified, subsequent encounter (principal); E11.621 Type 2 diabetes mellitus with foot ulcer; L97.412 Non-pressure chronic ulcer of right heel and midfoot with fat layer exposed; L03.115 Cellulitis of right lower limb; L84 Corns and callosities; I89.0 Lymphedema, not elsewhere classified; E11.42 Type 2 diabetes mellitus with diabetic polyneuropathy; E78.00 Pure hypercholesterolemia, unspecified; E03.9 Hypothyroidism, unspecified; E66.01 Morbid (severe) obesity due to excess calories; G47.30 Sleep apnea, unspecified; Z68.42 Body mass index [BMI] 45.0-49.9, adult; Z85.3 Personal history of malignant neoplasm of breast; Z85.828 Personal history of other malignant neoplasm of skin; Z87.891 Personal history of nicotine dependence; Y83.8 Other surgical procedures as the cause of abnormal reaction of the patient, or of later complication, without mention of misadventure at the time of the procedure ==

== ENCOUNTER → 2021-01-09 | Outpatient (CLI) | payer MEDICARE, OTHER | LOC: M.WC 12:53 | PROVIDERS: ATTEND Podiatrist Foot & Ankle Surgery | DX: T81.89XD Other complications of procedures, not elsewhere classified, subsequent encounter (principal); E11.621 Type 2 diabetes mellitus with foot ulcer; L97.412 Non-pressure chronic ulcer of right heel and midfoot with fat layer exposed; L03.115 Cellulitis of right lower limb; L84 Corns and callosities; I89.0 Lymphedema, not elsewhere classified; E11.42 Type 2 diabetes mellitus with diabetic polyneuropathy; E78.00 Pure hypercholesterolemia, unspecified; E03.9 Hypothyroidism, unspecified; E66.01 Morbid (severe) obesity due to excess calories; G47.30 Sleep apnea, unspecified; Z68.42 Body mass index [BMI] 45.0-49.9, adult; Z85.3 Personal history of malignant neoplasm of breast; Z85.828 Personal history of other malignant neoplasm of skin; Z87.891 Personal history of nicotine dependence; Y83.8 Other surgical procedures as the cause of abnormal reaction of the patient, or of later complication, without mention of misadventure at the time of the procedure ==

== ENCOUNTER → 2021-01-16 | Outpatient (CLI) | payer MEDICARE, OTHER | LOC: M.WC 12:49 | PROVIDERS: ATTEND Podiatrist Foot & Ankle Surgery | DX: T81.89XD Other complications of procedures, not elsewhere classified, subsequent encounter (principal); E11.621 Type 2 diabetes mellitus with foot ulcer; L97.412 Non-pressure chronic ulcer of right heel and midfoot with fat layer exposed; L03.115 Cellulitis of right lower limb; L84 Corns and callosities; I89.0 Lymphedema, not elsewhere classified; E11.42 Type 2 diabetes mellitus with diabetic polyneuropathy; E78.00 Pure hypercholesterolemia, unspecified; E03.9 Hypothyroidism, unspecified; E66.01 Morbid (severe) obesity due to excess calories; G47.30 Sleep apnea, unspecified; Z68.42 Body mass index [BMI] 45.0-49.9, adult; Z85.3 Personal history of malignant neoplasm of breast; Z85.828 Personal history of other malignant neoplasm of skin; Z87.891 Personal history of nicotine dependence; Y83.8 Other surgical procedures as the cause of abnormal reaction of the patient, or of later complication, without mention of misadventure at the time of the procedure ==

== ENCOUNTER → 2021-01-23 | Outpatient (CLI) | payer MEDICARE, OTHER ==
[2021-01-23 14:05] LABS: ABSOLUTE BASOPHILS 0.1 thou/uL (0.0-0.2); ABSOLUTE EOSINOPHILS 0.2 thou/uL (0.0-0.7); ABSOLUTE LYMPHOCYTES 2.6 thou/uL (0.8-5.3); ABSOLUTE MONOCYTES 0.4 thou/uL (0.0-1.2); ABSOLUTE NEUTROPHILS 4.9 thou/uL (1.6-8.1); BASOPHILS 0.7 %; EOSINOPHILS 2.3 %; HEMATOCRIT 37.6 % (37.0-47.0); HEMOGLOBIN 12.1 gm/dL (12.0-15.0); LYMPHOCYTES 31.7 %; MCH 29.7 pg (26.0-34.0); MCHC 32.1 g/dL (28.0-37.0); MCV 92.6 fL (80.0-100.0); MONOCYTES 4.9 %; MPV 7.6 fl. (7.2-11.1); NUCLEATED RBCS 0 /100WBC; PLATELET COUNT* 202 thou/uL (150-400); POLYS 60.4 %; RBC 4.06 mil/uL (4.20-5.00); RDW-CV 19.3 % (10.5-14.5); WBC 8.1 thou/uL (4.0-11.0)
[2021-01-23 15:08] LABS: ESR (SEDRATE) 75 mm/hr (0-30)
== END ==
LOC: M.WC 12:43
PROVIDERS: ATTEND Podiatrist Foot & Ankle Surgery
DX: T81.89XD Other complications of procedures, not elsewhere classified, subsequent encounter (principal); E11.621 Type 2 diabetes mellitus with foot ulcer; L97.412 Non-pressure chronic ulcer of right heel and midfoot with fat layer exposed; L03.115 Cellulitis of right lower limb; L84 Corns and callosities; I89.0 Lymphedema, not elsewhere classified; E11.42 Type 2 diabetes mellitus with diabetic polyneuropathy; E78.00 Pure hypercholesterolemia, unspecified; E03.9 Hypothyroidism, unspecified; E66.01 Morbid (severe) obesity due to excess calories; G47.30 Sleep apnea, unspecified; Z68.42 Body mass index [BMI] 45.0-49.9, adult; Z85.3 Personal history of malignant neoplasm of breast; Z85.828 Personal history of other malignant neoplasm of skin; Z87.891 Personal history of nicotine dependence; Y83.8 Other surgical procedures as the cause of abnormal reaction of the patient, or of later complication, without mention of misadventure at the time of the procedure

== ENCOUNTER → 2021-01-30 | Outpatient (CLI) | payer MEDICARE, OTHER | LOC: M.WC 12:31 | PROVIDERS: ATTEND Podiatrist Foot & Ankle Surgery | DX: T81.89XD Other complications of procedures, not elsewhere classified, subsequent encounter (principal); E11.621 Type 2 diabetes mellitus with foot ulcer; L97.412 Non-pressure chronic ulcer of right heel and midfoot with fat layer exposed; L03.115 Cellulitis of right lower limb; L84 Corns and callosities; I89.0 Lymphedema, not elsewhere classified; E11.42 Type 2 diabetes mellitus with diabetic polyneuropathy; E78.00 Pure hypercholesterolemia, unspecified; E03.9 Hypothyroidism, unspecified; E66.01 Morbid (severe) obesity due to excess calories; G47.30 Sleep apnea, unspecified; Z68.42 Body mass index [BMI] 45.0-49.9, adult; Z85.3 Personal history of malignant neoplasm of breast; Z85.828 Personal history of other malignant neoplasm of skin; Z87.891 Personal history of nicotine dependence; Y83.8 Other surgical procedures as the cause of abnormal reaction of the patient, or of later complication, without mention of misadventure at the time of the procedure ==

== ENCOUNTER → 2021-02-06 | Outpatient (CLI) | payer MEDICARE, OTHER | LOC: M.WC 12:50 | PROVIDERS: ATTEND Podiatrist Foot & Ankle Surgery | DX: T81.89XD Other complications of procedures, not elsewhere classified, subsequent encounter (principal); E11.621 Type 2 diabetes mellitus with foot ulcer; L97.412 Non-pressure chronic ulcer of right heel and midfoot with fat layer exposed; L03.115 Cellulitis of right lower limb; L84 Corns and callosities; I89.0 Lymphedema, not elsewhere classified; E11.42 Type 2 diabetes mellitus with diabetic polyneuropathy; E78.00 Pure hypercholesterolemia, unspecified; E03.9 Hypothyroidism, unspecified; E66.01 Morbid (severe) obesity due to excess calories; G47.30 Sleep apnea, unspecified; Z68.42 Body mass index [BMI] 45.0-49.9, adult; Z85.3 Personal history of malignant neoplasm of breast; Z85.828 Personal history of other malignant neoplasm of skin; Z87.891 Personal history of nicotine dependence; Y83.8 Other surgical procedures as the cause of abnormal reaction of the patient, or of later complication, without mention of misadventure at the time of the procedure ==

== ENCOUNTER → 2021-02-13 | Outpatient (CLI) | payer MEDICARE, OTHER | LOC: M.WC 12:27 | PROVIDERS: ATTEND Podiatrist Foot & Ankle Surgery | DX: T81.89XD Other complications of procedures, not elsewhere classified, subsequent encounter (principal); E11.621 Type 2 diabetes mellitus with foot ulcer; L97.412 Non-pressure chronic ulcer of right heel and midfoot with fat layer exposed; L03.115 Cellulitis of right lower limb; L84 Corns and callosities; I89.0 Lymphedema, not elsewhere classified; E11.42 Type 2 diabetes mellitus with diabetic polyneuropathy; E78.00 Pure hypercholesterolemia, unspecified; E03.9 Hypothyroidism, unspecified; E66.01 Morbid (severe) obesity due to excess calories; G47.30 Sleep apnea, unspecified; Z68.42 Body mass index [BMI] 45.0-49.9, adult; Z85.3 Personal history of malignant neoplasm of breast; Z85.828 Personal history of other malignant neoplasm of skin; Z87.891 Personal history of nicotine dependence; Y83.8 Other surgical procedures as the cause of abnormal reaction of the patient, or of later complication, without mention of misadventure at the time of the procedure ==

== ENCOUNTER → 2021-02-20 | Outpatient (CLI) | payer MEDICARE, OTHER | LOC: M.WC 12:30 | PROVIDERS: ATTEND Podiatrist Foot & Ankle Surgery | DX: T81.89XD Other complications of procedures, not elsewhere classified, subsequent encounter (principal); L89.892 Pressure ulcer of other site, stage 2; E11.621 Type 2 diabetes mellitus with foot ulcer; L97.412 Non-pressure chronic ulcer of right heel and midfoot with fat layer exposed; E11.622 Type 2 diabetes mellitus with other skin ulcer; L97.311 Non-pressure chronic ulcer of right ankle limited to breakdown of skin; L03.115 Cellulitis of right lower limb; L84 Corns and callosities; I89.0 Lymphedema, not elsewhere classified; E11.42 Type 2 diabetes mellitus with diabetic polyneuropathy; E78.00 Pure hypercholesterolemia, unspecified; E03.9 Hypothyroidism, unspecified; E66.01 Morbid (severe) obesity due to excess calories; G47.30 Sleep apnea, unspecified; Z68.42 Body mass index [BMI] 45.0-49.9, adult; Z85.3 Personal history of malignant neoplasm of breast; Z85.828 Personal history of other malignant neoplasm of skin; Z87.891 Personal history of nicotine dependence; Y83.8 Other surgical procedures as the cause of abnormal reaction of the patient, or of later complication, without mention of misadventure at the time of the procedure ==

== ENCOUNTER → 2021-03-06 | Outpatient (CLI) | payer MEDICARE, OTHER | LOC: M.WC 12:30 | PROVIDERS: ATTEND Podiatrist Foot & Ankle Surgery | DX: T81.89XD Other complications of procedures, not elsewhere classified, subsequent encounter (principal); E11.621 Type 2 diabetes mellitus with foot ulcer; L89.892 Pressure ulcer of other site, stage 2; L97.412 Non-pressure chronic ulcer of right heel and midfoot with fat layer exposed; E11.622 Type 2 diabetes mellitus with other skin ulcer; L97.311 Non-pressure chronic ulcer of right ankle limited to breakdown of skin; L03.115 Cellulitis of right lower limb; L84 Corns and callosities; I89.0 Lymphedema, not elsewhere classified; E11.42 Type 2 diabetes mellitus with diabetic polyneuropathy; E78.00 Pure hypercholesterolemia, unspecified; E03.9 Hypothyroidism, unspecified; E66.01 Morbid (severe) obesity due to excess calories; G47.30 Sleep apnea, unspecified; Z68.42 Body mass index [BMI] 45.0-49.9, adult; Z85.3 Personal history of malignant neoplasm of breast; Z85.828 Personal history of other malignant neoplasm of skin; Z87.891 Personal history of nicotine dependence; Y83.8 Other surgical procedures as the cause of abnormal reaction of the patient, or of later complication, without mention of misadventure at the time of the procedure ==

== ENCOUNTER → 2021-03-13 | Outpatient (CLI) | payer MEDICARE, OTHER | LOC: M.WC 12:23 | PROVIDERS: ATTEND Podiatrist Foot & Ankle Surgery | DX: T81.89XD Other complications of procedures, not elsewhere classified, subsequent encounter (principal); E11.621 Type 2 diabetes mellitus with foot ulcer; L89.892 Pressure ulcer of other site, stage 2; L97.412 Non-pressure chronic ulcer of right heel and midfoot with fat layer exposed; E11.622 Type 2 diabetes mellitus with other skin ulcer; L97.311 Non-pressure chronic ulcer of right ankle limited to breakdown of skin; L03.115 Cellulitis of right lower limb; L84 Corns and callosities; I89.0 Lymphedema, not elsewhere classified; E11.42 Type 2 diabetes mellitus with diabetic polyneuropathy; E78.00 Pure hypercholesterolemia, unspecified; E03.9 Hypothyroidism, unspecified; E66.01 Morbid (severe) obesity due to excess calories; G47.30 Sleep apnea, unspecified; Z68.42 Body mass index [BMI] 45.0-49.9, adult; Z85.3 Personal history of malignant neoplasm of breast; Z85.828 Personal history of other malignant neoplasm of skin; Z87.891 Personal history of nicotine dependence; Y83.8 Other surgical procedures as the cause of abnormal reaction of the patient, or of later complication, without mention of misadventure at the time of the procedure ==